=== PATIENT | female | born 1930 | race Caucasian/White ===

== ENCOUNTER 2019-11-03 00:52 | Inpatient (IN) | payer OTHER ==
[2019-11-03] MEDS ORDERED: NA CHLORIDE 0.9% 500 ML ONE (01:36)
[2019-11-03] MEDS ORDERED: ONDANSETRON 4 MG/2 ML VIAL ONE (01:36)
[2019-11-03] MEDS ORDERED: FENTANYL CITR 100 MCG/2 ML ONE (01:36)
--- NOTE | 2019-11-03 02:53 | ER ---
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 denies LOC. no deformity or hematoma noted. Coronavirus screen: The patient has NOT traveled to a country currently being monitored by the [facility] within the last 14 days. Proceed with normal triage procedures. The patient has NOT had contact with any known and/or suspected case of coronavirus. Proceed with normal triage procedures. Ebola Screen: No symptoms or risks identified at this time. Initial Sepsis Screen: Does the patient meet any 2 criteria? No. Patient's initial sepsis screen is negative. Does the patient have a suspected source of infection? No. Patient's initial sepsis screen is negative. Risk Assessment: Do you want to hurt yourself or someone else? Patient reports no desire to harm self or others. 01:04 Method Of Arrival: EMS: [facility] mg2 01:04 Acuity: ANT 3 mg2 Historical: - Allergies: 01:10 No Known Allergies; mg2 - Home Meds: 01:10 Eliquis oral oral [Active]; sertraline oral oral [Active]; carvedilol oral oral mg2 [Active]; amlodipine oral [Active]; atorvastatin oral oral [Active]; carvedilol oral oral [Active]; - PMHx: 01:10 CVA; Hypertension; Diverticulitis; uterine prolapse; DVT; mg2 - PSHx: 01:10 uterine prolapse surgery; mg2 - Immunization history:: Flu vaccine is not up to date. - Social history:: Smoking status: Patient denies any tobacco usage or history of. Patient/guardian denies using alcohol, street drugs, IV drugs. Screenin:09 Abuse screen: Denies threats or abuse. Denies injuries from another. Nutritional lw1 screening: No deficits noted. Tuberculosis screening: No symptoms or risk factors identified. Fall Risk IV access (20 points). Exposure risk/Travel Screening: None identified. Assessment: 02:05 Reassessment: Patient is alert, oriented x 3, equal unlabored respirations, skin lw1 warm/dry/pink. General: Appears in no apparent distress. comfortable, well groomed, well developed, well nourished, Behavior is calm, cooperative, appropriate for age. Pain: Denies pain. Neuro: No deficits noted. Cardiovascular: No deficits noted. Heart tones S1 S2 Capillary refill < 3 seconds in bilateral fingers toes. Respiratory: No deficits noted. Airway is patent Breath sounds are clear bilaterally. GI: Abdomen is round non-distended, Bowel sounds present X 4 quads. Abd is soft and non tender X 4 quads. : No deficits noted. EENT: No deficits noted. Derm: No deficits noted. Musculoskeletal: Parent/caregiver report the patient having weakness in right arm, left arm, right leg and left leg. 03:05 Reassessment: Patient appears in no apparent distress at this time. Patient and/or sg family updated on plan of care and expected duration. Pain level reassessed. Patient is alert, oriented x 3, equal unlabored respirations, skin warm/dry/pink. report given to Ashlie WILKINSON for room 214. Vital Signs: 01:04 BP 179 / 65; Pulse 66; Resp 20; Temp 97.6(TE); Pulse Ox 97% ; lt1 01:10 Weight 61.23 kg; Height 5 ft. 4 in. (162.56 cm); mg2 03:06 BP 142 / 60; Pulse 62; Resp 18; Temp 97.7; Pulse Ox 98% on R/A; sg 01:10 Body Mass Index 23.17 (61.23 kg, 162.56 cm) mg2 ED Course: 01:03 Patient arrived in ED. mg2 01:06 Yeimi Khan, [facility] is Primary Nurse. lw1 01:07 Triage completed. mg2 01:07 Arm band placed on. mg2 01:20 Josh Andrews MD is Attending Physician. tw4 02:03 No provider procedures requiring assistance completed. Inserted saline lock: 22 gauge lw1 in right antecubital area, using aseptic technique. 02:10 Placed in gown. Bed in low position. Call light in reach. Side rails up X2. Adult w/ lw1 patient. equipment monitor phototypesetting on. Pulse ox on. NIBP on. Noise minimized. Lights dimmed. Warm blanket given. Pillow given. Head of bed. Diet: Patient is NPO. 02:28 Pelvis XRAY In Process Unspecified. EDMS 02:44 Hip Left 2 View XRAY In Process Unspecified. EDMS 02:51 Bobby Adams MD is Hospitalizing Provider. tw4 03:05 Patient admitted, IV remains in place. intact, No redness/swelling at site. sg 03:24 Perkins cath inserted, using sterile technique, 18 Fr., by me, balloon inflated, urine mg2 specimen collected. returned clear yellow urine. Patient tolerated well. Administered Medications: 01:45 Drug: fentaNYL (PF) 25 mcg Route: IVP; Site: right antecubital; lw1 01:45 Drug: Zofran (Ondansetron) 4 mg Route: IVP; Site: right antecubital; lw1 01:45 Drug: NS 0.9% 500 ml Route: IV; Rate: bolus; Site: right antecubital; lw1 Outcome: 02:53 Decision to Hospitalize by Provider. tw4 03:05 Admitted to Med/surg accompanied by nurse, family with patient, via stretcher, room sg 214, with chart, Report called to [facility] Dailey 03:05 Condition: stable 03:05 Instructed on follow up and referral plans. safety practices, Demonstrated understanding of instructions, Ashlie WILKINSON states that no orders have been received for pt admit to the unit, awaiting admission orders from for at this time, to be transported to receiving unit once admission orders have been submitted to [facility], pt and pt family stated understanding of the delay 04:09 Patient left the ED. mg2 Signatures: Dispatcher [employer] EDMiguel Kidd, Josh French RN, MD MD tw4 Reji Aguirre RN RN mg2 Cristela Pollack 1 Yeimi Khan RN RN lw1
--- NOTE | 2019-11-03 02:53 | EDPHYS ---
Physician Documentation [facility] Name: Marcia Benavidez Age: 89 yrs Sex: Female : 1930 Arrival Date: 11/03/2019 Time: 01:03 Bed 16 Private MD: ED Physician Josh Andrews HPI: 11/02 03:28 This 89 yrs old Female presents to ER via EMS with complaints of HIP PAIN tw4 AFTER FALL. 03:28 The patient or guardian reports decreased range of motion, deformity, an injury. that tw4 occurred at home, sustained from a fall, the left leg is internally rotated. The complaints affect the left upper thigh. Onset: The symptoms/episode began/occurred today. Modifying factors: The symptoms are alleviated by remaining still, the symptoms are aggravated by any movement. Associated signs and symptoms: Loss of consciousness: the patient experienced no loss of consciousness. The patient has not experienced similar symptoms in the past. Historical: - Allergies: 01:10 No Known Allergies; mg2 - Home Meds: 01:10 Eliquis oral oral [Active]; sertraline oral oral [Active]; carvedilol oral oral mg2 [Active]; amlodipine oral [Active]; atorvastatin oral oral [Active]; carvedilol oral oral [Active]; - PMHx: 01:10 CVA; Hypertension; Diverticulitis; uterine prolapse; DVT; mg2 - PSHx: 01:10 uterine prolapse surgery; mg2 - Immunization history:: Flu vaccine is not up to date. - Social history:: Smoking status: Patient denies any tobacco usage or history of. Patient/guardian denies using alcohol, street drugs, IV drugs. ROS: 03:28 Constitutional: Negative for fever, chills, and weight loss, Eyes: Negative for injury, tw4 pain, redness, and discharge, Cardiovascular: Negative for chest pain, palpitations, and edema, Respiratory: Negative for shortness of breath, cough, wheezing, and pleuritic chest pain, Abdomen/GI: Negative for abdominal pain, nausea, vomiting, diarrhea, and constipation, Skin: Negative for injury, rash, and discoloration, Neuro: Negative for headache, weakness, numbness, tingling, and seizure. 03:28 MS/extremity: Positive for injury or acute deformity, decreased range of motion, pain, swelling, tenderness. Exam: 03:28 Constitutional: This is a well developed, well nourished patient who is awake, alert, tw4 and in no acute distress. Head/Face: Normocephalic, atraumatic. Chest/axilla: Normal chest wall appearance and motion. Nontender with no deformity. No lesions are appreciated. Cardiovascular: Regular rate and rhythm with a normal S1 and S2. No gallops, murmurs, or rubs. Normal PMI, no JVD. No pulse deficits. Respiratory: Lungs have equal breath sounds bilaterally, clear to auscultation and percussion. No rales, rhonchi or wheezes noted. No increased work of breathing, no retractions or nasal flaring. Abdomen/GI: Soft, non-tender, with normal bowel sounds. No distension or tympany. No guarding or rebound. No evidence of tenderness throughout. Skin: Warm, dry with normal turgor. Normal color with no rashes, no lesions, and no evidence of cellulitis. Neuro: Awake and alert, GCS 15, oriented to person, place, time, and situation. Cranial nerves II-XII grossly intact. Motor strength 5/5 in all extremities. Sensory grossly intact. Cerebellar exam normal. Normal gait. Psych: Awake, alert, with orientation to person, place and time. Behavior, mood, and affect are within normal limits. 03:28 Musculoskeletal/extremity: Extremities: noted in the left upper thigh: decreased ROM, ROM: limited active range of motion due to pain, limited passive range of motion due to pain, Circulation is intact in all extremities. Vital Signs: 01:04 BP 179 / 65; Pulse 66; Resp 20; Temp 97.6(TE); Pulse Ox 97% ; lt1 01:10 Weight 61.23 kg; Height 5 ft. 4 in. (162.56 cm); mg2 03:06 BP 142 / 60; Pulse 62; Resp 18; Temp 97.7; Pulse Ox 98% on R/A; sg 01:10 Body Mass Index 23.17 (61.23 kg, 162.56 cm) mg2 MDM: 01:20 Patient medically screened. tw4 03:28 Differential diagnosis: hip fracture, intertrochanteric fracture, femoral neck tw4 fracture, femoral shaft fracture. Data reviewed: vital signs, nurses notes. Data reviewed: lab test result(s), cardiac enzymes, CBC, hepatic panel, EKG, radiologic studies. Data interpreted: Pulse oximetry: Interpretation: normal. Test interpretation: by ED physician or midlevel provider: plain radiologic studies. Counseling: I had a detailed discussion with the patient and/or guardian regarding: the historical points, exam findings, and any diagnostic results supporting the discharge/admit diagnosis, lab results, radiology results. Physician consultation: Bobby Adams MD regarding admission, to the medical/surgical unit. patient's condition, and will see patient in inpatient room, would like consultation with Dr. CORRALES D/W DR PENDLETON AT 0230. Admission orders: after a detailed discussion of the patient's condition and case, the admit orders are written by me. 11/02 01:22 Order name: Basic Metabolic Panel [facility] 11/02 01:22 Order name: CBC with Diff [facility] 11/02 01:22 Order name: Creatinine for Radiology [facility] 11/02 01:22 Order name: Hepatic Function [facility] 11/02 01:22 Order name: Lipase [facility] 11/02 03:26 Order name: Basic Metabolic Panel [facility] 11/02 01:22 Order name: Pelvis XRAY [facility] 11/02 01:22 Order name: Hip Left 2 View XRAY [facility] 11/02 03:26 Order name: Basic Metabolic Panel [facility] 11/02 03:26 Order name: CBC with Automated Diff [facility] 11/02 03:26 Order name: CBC with Automated Diff [facility] 11/02 01:22 Order name: IV Saline Lock [facility] 11/02 01:22 Order name: Labs collected and sent [facility] 11/02 03:01 Order name: Perkins; Complete Time: 04:08 11/02 03:26 Order name: CONS Physician Consult [facility] 11/02 03:26 Order name: NPO EDSD Administered Medications: 01:45 Drug: fentaNYL (PF) 25 mcg Route: IVP; Site: right antecubital; lw1 01:45 Drug: Zofran (Ondansetron) 4 mg Route: IVP; Site: right antecubital; lw1 01:45 Drug: NS 0.9% 500 ml Route: IV; Rate: bolus; Site: right antecubital; lw1 Disposition: 11/03/19 02:53 Hospitalization ordered by Bobby Adams for Inpatient Admission. Preliminary diagnosis is Fracture of unspecified part of neck of left femur. - Bed requested for Telemetry/MedSurg (Inpatient). - Status is Inpatient Admission. mg2 - Condition is Stable. - Problem is new. - Symptoms have improved. Signatures: Dispatcher [employer] EDMS Miguel Green, RN RN sg Joanna Monsivais RN RN lp1 Josh Andrews MD MD tw4 Reji Aguirre RN RN mg2 Yeimi Khan RN RN lw1 Corrections: (The following items were deleted from the chart) 02:53 02:53 Hospitalization Ordered by Bobby Adams MD for Inpatient Admission. Preliminary lp1 diagnosis is Fracture of unspecified part of neck of left femur. Bed requested for Telemetry/MedSurg (Inpatient). Status is Inpatient Admission. Condition is Stable. Problem is new. Symptoms have improved. tw4 04:09 02:53 11/03/2019 02:53 Hospitalization Ordered by Bobby Adams MD for Inpatient mg2 Admission. Preliminary diagnosis is Fracture of unspecified part of neck of left femur. Bed requested for Telemetry/MedSurg (Inpatient). Status is Inpatient Admission. Condition is Stable. Problem is new. Symptoms have improved. lp1
[2019-11-03 03:01] LABS: Absolute Lymphocytes (CBC) 1.2 K/uL (0.7-4.9); Basophils % 0.1 % (0-1.3); Hematocrit 34.8 % (36.0-45.0); Lymphocytes % 9.8 % (15.3-44.8); MPV 9.7 fL (7.6-11.3); RBC Red Blood Cell Count 4.03 M/uL (3.86-4.86)
[2019-11-03 03:18] LABS: ALT/SGPT 22 U/L (12-78); AST/SGOT 20 U/L (15-37); Albumin 3.6 g/dL (3.4-5.0); Alkaline Phosphatase 59 U/L (45-117); BUN Blood Urea Nitrogen 23 mg/dL (7-18); Bicarbonate 29 mmol/L (21-32); Bilirubin Direct 0.1 mg/dL (0-0.2); Bilirubin Total 0.4 mg/dL (0.2-1.0); Glucose Level 154 mg/dL (74-106); Lipase 110 U/L (73-393); Protein, Total 7.1 g/dL (6.4-8.2); Sodium Level 141 mmol/L (136-145)
[2019-11-03] MEDS ORDERED: ONDANSETRON 4 MG/2 ML VIAL IV PRN (03:22)
[2019-11-03] MEDS ORDERED: ACETAMINOPHEN 500 MG TAB PO PRN (03:22)
[2019-11-03 04:21] VITALS: BMI 24.9
[2019-11-03] MEDS: NA CHLORIDE 0.9% 1,000 ML IV SCH (05:01)
[2019-11-03] MEDS: MORPHINE 2 MG/ML SYR IV PRN ×3 (05:15→22:41)
--- NOTE | 2019-11-03 08:03 | RAD REPORT ---
EXAM DESCRIPTION: RAD - Chest Single View - 11/03/2019 6:47 am CLINICAL HISTORY: preop, hip fracture COMPARISON: None TECHNIQUE: AP portable chest image was obtained 11/03/2019 6:47 am . FINDINGS: Lungs are clear. Heart and vasculature are normal. No measurable pleural effusion and no p neumothorax. No acute bony abnormality seen. No acute aortic findings suspected. IMPRESSION: No acute cardiopulmonary process.
[2019-11-03] MEDS ORDERED: AMLODIPINE BESYLATE PO SCH (09:00)
[2019-11-03] MEDS ORDERED: [UNRECOGNIZED DRUG - OTHER] PO SCH (09:00)
[2019-11-03] MEDS ORDERED: BENAZEPRIL PO SCH (09:00)
[2019-11-03] MEDS: SERTRALINE HCL 50 MG TAB PO SCH (09:32)
[2019-11-03] MEDS: carvediloL 6.25 MG TAB PO SCH ×2 (09:32→21:20)
--- NOTE | 2019-11-03 10:05 | RAD REPORT ---
EXAM DESCRIPTION: RAD - Pelvis - 11/03/2019 2:54 am CLINICAL HISTORY: TRAUMA, fall, pelvis and hip pain COMPARISON: Pelvis Complete dated 10/19/2016 TECHNIQUE: AP imaging of the pelvis was obtained. FINDINGS: Minimal lower lumbar degenerative change seen right lateral L4-disc space across the entir e L5-S1 disc space. Minimal SI joint and pubic symphysis degenerative changes seen. No fracture of th e bony pelvis identifiable. Left proximal femur fracture is separately detailed. Hip joint degenerati ve changes are present. This is a mild symmetric pattern. IMPRESSION: No fracture of the bony pelvis. Left femur fracture is separately detailed.
--- NOTE | 2019-11-03 10:06 | RAD REPORT ---
EXAM DESCRIPTION: RAD - Hip Left 2 View - 11/03/2019 2:54 am CLINICAL HISTORY: PAIN, fall, pelvis and hip pain COMPARISON: No comparisons FINDINGS: AP and cross-table lateral views obtained. Left femoral neck fracture is present in the subcapital region. Medial margin of the neck fracture is impacted into the femoral head. No dislocation of the femoral head. No pathologic changes seen at th e fracture site. Intertrochanteric region is intact. No significant soft tissue finding. IMPRESSION: Left femoral neck fracture as detailed.
[2019-11-03] MEDS ORDERED: ENOXAPARIN 30 MG/0.3 ML SQ ONE (12:00)
[2019-11-03] MEDS ORDERED: INFLUENZA VACCINE (for 3y+) 0.5 ML DOSE IMVAC ONE (12:00)
[2019-11-03] MEDS ORDERED: PNEUMOCOCCAL VACCINE 0.5 ML IMVAC ONE (12:00)
--- NOTE | 2019-11-03 20:14 | HP ---
Date of Admission: 11/03/2019 Chief Complaint: Fall and hip pain. History Of Present Illness: This is an 89-year-old female patient, who lives at home with her federico beckford, uses walker to ambulate, and last night somewhere close to midnight, she was trying to reach to he r walker, lost her balance and fell down and was not able to get up. Patient fell on her left hip ar ea. Denies any head injury. She was not able to get up, so family was contacted and patient's daugh lobito went over there, helped her to get up and brought her to emergency room. After she was evaluated in the ER, she was admitted to the hospital with femoral fracture of left femur. This morning when I saw her, she was lying in bed, not in any distress. Denied any complaints and reports that she srinivasan s not have any pain until unless she moves. Allergies: NO KNOWN ALLERGIES. Medications: Amlodipine/benazepril 5/20 one capsule by mouth daily, Eliquis 2.5 mg by mouth 2 times a day, atorvastatin 20 mg p.o. daily in the evening, and sertraline 25 mg p.o. daily with breakfast. Review of Systems: Musculoskeletal: As mentioned above. All other systems reviewed and negative. Past Medical History: Impaired fasting glucose, hypertension, mixed hyperlipidemia, diverticulosis, hypercoagulable state, and depression. Past Surgical History: Cataract surgery, breast biopsy, hernia repair, uterine prolapse repair. Family History: Father and had a heart disease. Mother , had hypertension and diabetes. Social History: Negative for smoking and alcohol use. Physical Examination: Vital Signs: This morning; temperature 97, pulse 79, respiratory rate 20, blood pressure 186/72, oxy gen saturation 93%. Height 5 feet 4 inches, weight 145 pounds. General: Awake, alert, oriented, not in distress. HEENT: Head atraumatic, normocephalic. Conjunctivae nonerythematous. Sclerae white. Mouth, no thr ush or edema noted. Ears/Nose, no mass, lesion, discharge noted. Neck: Supple. No JVD, lymph nodes, bruit, thyromegaly noted. Lungs: Bilateral good equal air entry. Clear to auscultation. No rhonchi. No rales. Heart: Normal heart sounds, no murmur or gallop. Abdomen: Soft, bowel sounds normal. No guarding, rigidity, tenderness, mass, hepatosplenomegaly, dis tention, or bruit noted. Extremities: No leg edema. No calf tenderness. Skin: No rash, ulcer, cellulitis. Lymphatics: No lymph node enlargement in neck, supraclavicular, infraclavicular region. Neuro: No focal neurological deficit. Chest: Unremarkable. External Genitalia: Deferred. Rectal: Deferred. Laboratory Data: White count 12, hemoglobin 11.2, platelets 173. Sodium 141, potassium 4, chloride 108, bicarb 29, BUN 23, creatinine 0.61, glucose 154. Liver function tests unremarkable. Lipase 110 . X-ray of the hip and pelvis shows left femoral neck fracture. Chest x-ray, no acute cardiopulmonary changes. EKG, normal sinus rhythm, no acute ST-T changes. Impression: 1.Femoral neck fracture, left. 2.Hypercoagulable state. 3.Chronic anticoagulation therapy. 4.Hypertension. 5.Mixed hyperlipidemia. 6.Impaired fasting glucose. 7.Anemia, chronic. 8.Depression. 9.Diverticulosis. Plan: Admit the patient to hospital for further evaluation and management of this problem. Patient is appropriate for inpatient and is expected to spend 2 midnights in hospital. Home medications will be continued per order. Patient has SCD in place for DVT prophylaxis. Her last dose of Eliquis armida t she takes for her hypercoagulable state was yesterday evening. I did talk to Dr. Garcia and bianca lobo him aware of the patient's chronic anticoagulation therapy. He would like to proceed with surgery today or tomorrow and I informed him about the anticoagulation therapy and we would like to wait at [facility] until tomorrow for sure or day after tomorrow, and after my discussion with him, he would like t o proceed with surgery probably tomorrow afternoon and we will try to do that as late in the afternoo n as possible. So, by that time, the patient would be close to 36 to 48 hours from the last dose of her Eliquis dose. She normally takes her evening dose of Eliquis around 5 o'clock in the evening walker e according to patient's daughter. Patient is at acceptable risk from planned surgery, and today, I will give her 1 dose of Lovenox 30 mg subcutaneous injection. RENÉE/MODL Voice ID: [id number]
[2019-11-03] MEDS: ATORVASTATIN 20 MG TAB PO SCH (21:20)
--- NOTE | 2019-11-03 22:38 | CON ---
Date of Consultation: 11/03/2019 History Of Present Illness: This is my first time seeing this patient to my knowledge. She is an 89 -year-old female who was ambulatory with a walker. However, she does have some limitations in her mo bility. She unfortunately took a misstep and fell injuring her left lower extremity. She was seen a nd examined in the emergency department where she was ruled out for other injuries, however, x-rays w ere taken, which demonstrate a displaced femoral neck fracture on the left. On physical examination, she is interactive and appropriate. She appears to understand things as presented and answers quest ions appropriately. She denies any other pain, but complains of significant pain related to her left hip. All of her long bones and joints are palpated without pain or crepitation with the exception o f any movement or manipulation of the left hip. Assessment: An 89-year-old female now with a displaced left femoral neck fracture. Plan: Plan at this time, will see with Dr. Adams regarding clearance or other medical conditions or c onsiderations, but will probably after speaking with the family later when they are available, procee d with left bipolar hemiarthroplasty. The patient at least states that she understands things as pre sented and like to proceed, although we will also speak with Dr. Adams and the family. /BIANKA Voice ID: [id number] Report ID: [id number]
[2019-11-04] MEDS: NA CHLORIDE 0.9% 1,000 ML IV SCH ×2 (03:37)
[2019-11-04] MEDS: MORPHINE 2 MG/ML SYR IV PRN (04:47)
[2019-11-04 05:53] LABS: Absolute Lymphocytes (CBC) 1.3 K/uL (0.7-4.9); Basophils % 0.4 % (0-1.3); Hematocrit 28.2 % (36.0-45.0); Lymphocytes % 18.8 % (15.3-44.8); RBC Red Blood Cell Count 3.23 M/uL (3.86-4.86)
[2019-11-04 06:37] LABS: BUN Blood Urea Nitrogen 17 mg/dL (7-18); Bicarbonate 29 mmol/L (21-32); Glucose Level 113 mg/dL (74-106); Potassium 4.2 mmol/L (3.5-5.1); Sodium Level 141 mmol/L (136-145)
[2019-11-04] MEDS: carvediloL 6.25 MG TAB PO SCH ×2 (10:17→20:18)
[2019-11-04] MEDS: SERTRALINE HCL 50 MG TAB PO SCH (10:18)
[2019-11-04] MEDS: BENAZEPRIL 20 MG TAB PO SCH (10:19)
[2019-11-04] MEDS: AMLODIPINE 5 MG TAB PO SCH (10:20)
[2019-11-04] MEDS ORDERED: Ringers Lactate 1,000 ML IV ONE (12:43)
[2019-11-04] MEDS ORDERED: CEFAZOLIN SODIUM 1 GM/VIAL ONE (13:10)
[2019-11-04] MEDS: CEFAZOLIN/SWI 1gm 0 GM/0 ML SYR ONE (13:19)
[2019-11-04] MEDS ORDERED: TRANEXAMIC ACID 1,000 MG in NA CHLORIDE 0.9% 50 ML IV ONE (14:00)
[2019-11-04] MEDS ORDERED: ENOXAPARIN 30 MG/0.3 ML SQ ONE (15:00)
--- NOTE | 2019-11-04 17:41 | PN ---
Date of Progress Note: 11/04/2019 Subjective: Patient was seen this morning for followup. No new complaints or problems reported by bahman taylor. Lying in bed, not in distress. Objective: Vital Signs: Reviewed. HEENT: Unremarkable. Lungs: Clear to auscultation. Heart: Sounds normal. Abdomen: Soft. Bowel sounds normal. No guarding, rigidity, tenderness, distention. Extremities: No leg edema. Impression: 1.Left femoral neck fracture. 2.Chronic anticoagulation therapy. 3.Hypertension. 4.Hyperlipidemia. Plan: Continue current medications. Continue home medications per order. We will change IV fluid t o D5 normal saline. Patient is n.p.o. for her surgery today. Dr. Garcia will perform her surgery today. We will repeat blood work tomorrow. I will see her tomorrow for followup. RENÉE/MODL Voice ID: [id number] Report ID: [id number]
[2019-11-04] MEDS: D5 0.9 NS 1,000 ML IV SCH (20:17)
[2019-11-04] MEDS: ATORVASTATIN 20 MG TAB PO SCH (20:18)
[2019-11-05] MEDS: MORPHINE 2 MG/ML SYR IV PRN ×3 (01:59→12:52)
[2019-11-05] MEDS: D5 0.9 NS 1,000 ML IV SCH ×2 (05:04→10:00)
[2019-11-05 05:28] LABS: Absolute Lymphocytes (CBC) 1.2 K/uL (0.7-4.9); Basophils % 0.2 % (0-1.3); Hematocrit 24.8 % (36.0-45.0); MPV 9.4 fL (7.6-11.3); RBC Red Blood Cell Count 2.83 M/uL (3.86-4.86)
[2019-11-05 05:41] LABS: BUN Blood Urea Nitrogen 18 mg/dL (7-18); Bicarbonate 29 mmol/L (21-32); Glucose Level 149 mg/dL (74-106); Magnesium 1.9 mg/dL (1.8-2.4); Potassium 3.8 mmol/L (3.5-5.1); Sodium Level 141 mmol/L (136-145)
[2019-11-05] MEDS: SERTRALINE HCL 50 MG TAB PO SCH (08:17)
[2019-11-05] MEDS: AMLODIPINE 5 MG TAB PO SCH (08:18)
[2019-11-05] MEDS: BENAZEPRIL 20 MG TAB PO SCH (08:18)
[2019-11-05] MEDS: carvediloL 6.25 MG TAB PO SCH ×2 (08:19→21:11)
[2019-11-05] MEDS: HYDROCODONE/APAP 5/325 MG TAB PO SCH ×2 (13:20→21:10)
[2019-11-05] MEDS ORDERED: CEFAZOLIN/SWI 1gm 1 GM/10 ML SYR ONE (15:25)
[2019-11-05] MEDS ORDERED: CEFAZOLIN SODIUM 1 GM/VIAL ONE (15:26)
[2019-11-05] MEDS ORDERED: propofoL 200 MG/20 ML VIAL IV ONE (16:03)
[2019-11-05] MEDS ORDERED: ROCURONIUM 50 MG/5 ML VIAL IV ONE (16:03)
[2019-11-05] MEDS ORDERED: LIDOCAINE 2% MPF 5 ML VIAL ONE (16:05)
[2019-11-05] MEDS ORDERED: Phenylephrine HCl 10 MG/ML 1 ML VIAL ONE (16:06)
[2019-11-05] MEDS: CEFAZOLIN/SWI 1gm 0 GM/0 ML SYR ONE (16:40)
[2019-11-05] MEDS ORDERED: FENTANYL CITR 100 MCG/2 ML ONE (16:57)
[2019-11-05] MEDS ORDERED: ONDANSETRON 4 MG/2 ML VIAL ONE (17:05)
[2019-11-05] MEDS ORDERED: KETOROLAC 30 MG/ML INJ ONE (17:05)
[2019-11-05] MEDS ORDERED: dexAMETHasone 10 MG/ML VIAL ONE (17:05)
[2019-11-05] MEDS ORDERED: GLYCOPYRROLATE 0.2 MG/ML SYR ONE ×3 (17:26→18:19)
[2019-11-05] MEDS ORDERED: NEOSTIGMINE 1 MG/ML -5 ML ONE (18:19)
--- NOTE | 2019-11-05 20:04 | PN ---
Date of Progress Note: 11/05/2019 Subjective: Patient was seen this morning for followup. No new complaints problems reported by gilles ent. Physical Examination: General: Lying in bed, not in distress. Vital Signs: Reviewed. HEENT: Unremarkable. Lungs: Clear to auscultation. Cardiac: Heart sounds normal. Abdomen: Soft, bowel sounds normal. No guarding, rigidity, tenderness, distention. Extremities: No leg edema. Laboratory Data: White count 9.3, hemoglobin 8.2, platelets 101. Sodium 141, potassium 3.8, chlorid e 109, bicarb 29, BUN 18, creatinine 0.53, glucose 149, magnesium 1.9. Impression: 1.Acute blood loss anemia. 2.Thrombocytopenia. 3.Hip fracture. 4.Chronic anticoagulation therapy. 5.Hypercoagulable state. 6.Hypertension. Plan: We will go ahead and continue current home medication. We will start Eliquis at 2.5 mg 2 time s a day per order. Monitor blood work. No need for blood transfusion today. We will repeat blood w ork tomorrow. Details were discussed with the patient. Reduced IV fluid to 30 cc/hour. RENÉE/MODL Voice ID: [id number] Report ID: [id number]
[2019-11-05] MEDS ORDERED: APIXABAN 2.5 MG TABLET PO SCH (21:00)
[2019-11-05] MEDS: DOCUSATE NA/SENNA CONC 1 TAB PO SCH (21:10)
[2019-11-05] MEDS: ATORVASTATIN 20 MG TAB PO SCH (21:10)
--- NOTE | 2019-11-05 21:52 | OP ---
Date of Procedure: 11/05/2019 Surgeon: Miguel Garcia MD Preoperative Diagnosis: Left hip displaced femoral neck fracture. Postoperative Diagnosis: Left hip displaced femoral neck fracture. Procedure: Left hip bipolar hemiarthroplasty using the Biomet Echo system. Estimated Blood Loss: 200 cc. Complications: No complications. Indication For Operation: Ms. Benavidez is an 89-year-old female who unfortunately fell injuring her l eft lower extremity. She was seen and examined in the emergency department where she was ruled out f or other injuries, however, x-rays demonstrated displaced left femoral neck fracture. She was seen b y me on Tuesday and consultation has been done. She was found to have a left femoral neck fracture. Denied any other injuries. All risks, benefits, and alternatives have been discussed with the gilles ent as well has been discussed with family with regard to treatment of this fracture. They state the y understand things as presented and wished to proceed. Description Of Procedure: The patient was taken to the operating room and placed in supine position. General anesthesia was obtained by staff. Following this, she was then transferred onto the operat jose bed. She was then rolled right side down with an axillary roll. She was then appropriately posi tioned using hip positioners and left lower extremity was then prepped and draped in the usual steril e fashion for this arthroplasty. Following this, a posterior lateral incision was taken down careful ly through skin and soft tissues. Meticulous hemostasis being maintained using Bovie electrocautery. There was a fairly large hematoma which was evacuated. There was still some fat attached to the fa scia. I do not really think this was a seroma more manufacturers representative of hematoma. This was followed by an incision which was made in the fascia. The gluteal tendon was then palpated. Fascial incision f ound to be in correct position. This was then followed up until near the tip of the greater trochant er with the muscles of the gluteus jaquan were encountered. These were then spread using finger pre ssure. The sciatic nerve was then palpated and protected as the some of the bursa was removed and th e external rotators and capsule were then taken down and tagged for later repair. The hip was then b rought into the operative field. The neck was then cut slightly longer than normal, but there was ve ry good calcar placed. The piece of the neck then removed. The head was then removed and sized usin g ring gauges. Following this, any debris within the acetabulum was removed. Attention was turned b ack to the femur. arc cutter plasma arc was used to lateralize the entry portal and the canal-finding reamer quin cosby then used. This was followed by sequential reaming as well as broaching. We were able to broach u p to about 12-1/2, therefore decision made to move forward with 11. The canal was then copiously irr igated until it runs completely clear. The bone plug was placed to appropriate depth and the stem wa s placed using third generation cementation technique. It was held in place and allowed to harden. It was then sequentially trialed including a standard -3 and -6, -6 appeared to be the most appropria te. It was definitely stable to full flexion, 45 degrees of internal rotation and adduction. This w as selected as the final and the -6 was then placed into the acetabulum. It was again checked and fo und to be stable with full flexion, full adduction, internal rotation approximately 30-45 degrees. T he wound was copiously irrigated and the external rotators and capsule were then repaired back to the greater trochanter using bone tunnel. This was followed by irrigation and closure of the fascia in a watertight fashion using interrupted heavy Vicryl sutures, followed by irrigation and closure of th e skin using 2-0 Vicryl sutures, followed by nickolas. [facility] awakened, and taken to recovery room in good condition. There were no complications. SE/MODL Voice ID: [id number] Report ID: [id number]
[2019-11-05] MEDS: CEFAZOLIN/SWI 1gm 1 GM/10 ML SYR IV SCH (22:01)
[2019-11-06 05:55] LABS: Potassium 4.8 mmol/L (3.5-5.1)
[2019-11-06 06:03] LABS: Absolute Lymphocytes (CBC) 0.6 K/uL (0.7-4.9); Basophils % 0.1 % (0-1.3); Hematocrit 22.5 % (36.0-45.0); Lymphocytes % 6.8 % (15.3-44.8); MPV 9.7 fL (7.6-11.3); RBC Red Blood Cell Count 2.56 M/uL (3.86-4.86)
[2019-11-06] MEDS: CEFAZOLIN/SWI 1gm 1 GM/10 ML SYR IV SCH ×2 (06:08→18:27)
[2019-11-06 07:40] LABS: Blood Morphology Comment NOT SEEN (NOT SEEN); Platelet Estimate ADEQ
[2019-11-06] MEDS: HYDROCODONE/APAP 5/325 MG TAB PO SCH ×3 (09:07→22:03)
[2019-11-06] MEDS: APIXABAN 2.5 MG TABLET PO SCH ×2 (09:07→22:01)
[2019-11-06] MEDS: AMLODIPINE 5 MG TAB PO SCH (09:07)
[2019-11-06] MEDS: carvediloL 6.25 MG TAB PO SCH ×2 (09:07→22:02)
[2019-11-06] MEDS: SERTRALINE HCL 50 MG TAB PO SCH (09:07)
[2019-11-06] MEDS: BENAZEPRIL 20 MG TAB PO SCH (09:07)
[2019-11-06] MEDS ORDERED: NA CHLORIDE 0.9% 250 ML ONE ×2 (10:19→14:02)
--- NOTE | 2019-11-06 10:31 | EKG ---
Test Date: 2019-11-03 Test Time: 06:20:01 Telephone Services Sales Representative: RT MEASUREMENT RESULTS: Intervals: Rate: 73 WV: 144 QRSD: 72 QT: 408 QTc: 449 [place]: P: 48 WV: 144 QRS: -5 T: -8 INTERPRETIVE STATEMENTS: Normal sinus rhythm Possible Left atrial enlargement Nonspecific ST and T wave abnormality Abnormal ECG Compared to ECG 09/19/2006 17:17:40 Left-axis deviation no longer present ST (T wave) deviation still present Electronically Signed On 11-06-19 10:29:20 CDT by Burak Clayton
[2019-11-06] MEDS: D5 0.9 NS 1,000 ML IV SCH (19:09)
[2019-11-06] MEDS: MORPHINE 2 MG/ML SYR IV PRN (19:21)
[2019-11-06 20:41] LABS: Hematocrit 27.3 % (36.0-45.0)
[2019-11-06] MEDS: DOCUSATE NA/SENNA CONC 1 TAB PO SCH ×2 (21:00→22:02)
--- NOTE | 2019-11-06 21:14 | PN ---
Date of Progress Note: 11/06/2019 Subjective: Patient was seen this morning for followup. No new complaints problems reported by the patient. Her was present with her at bedside. Objective: Vital Signs: Reviewed. HEENT: Unremarkable. Lungs: Clear to auscultation. Cardiac: Heart sounds normal. Abdomen: Soft, bowel sounds normal. No guarding, rigidity, tenderness, or distention. Extremities: No leg edema. Laboratory Data: White count 48.5, hemoglobin 7.4, platelets 122. Sodium 142, potassium 4.8, chlori de 109, bicarb 28, BUN 24, creatinine 0.76, glucose 178. Impression: 1.Hip fracture. 2.Anemia due to acute blood loss. 3.Hypertension. 4.Mixed hyperlipidemia. Plan: We will go ahead and give 2 units of packed red cell blood transfusion. Start Eliquis 2.5 mg twice a day for DVT prophylaxis and in view of patient's hypercoagulable state. She is on chronic an ticoagulation therapy, so it will be started today. After 2 units PRBC will get post transfusion hem oglobin checked and I will see her tomorrow for followup. We are waiting for social service to help make arrangements for disposition. Rehab consultation was requested. If the patient gets accepted to rehab, then our plan is to send her to inpatient rehab and that can happ en probably tomorrow. RENÉE/MODL Voice ID: [id number] Report ID: [id number]
[2019-11-06] MEDS: ATORVASTATIN 20 MG TAB PO SCH (22:02)
[2019-11-07] MEDS ORDERED: MAGNESIUM HYDROXIDE 8% 30 ML PO PRN (05:26)
[2019-11-07] MEDS: AMLODIPINE 5 MG TAB PO SCH (09:35)
[2019-11-07] MEDS: APIXABAN 2.5 MG TABLET PO SCH ×2 (09:36→20:35)
[2019-11-07] MEDS: carvediloL 6.25 MG TAB PO SCH ×2 (09:36→20:35)
[2019-11-07] MEDS: BENAZEPRIL 20 MG TAB PO SCH (09:36)
[2019-11-07] MEDS: SERTRALINE HCL 50 MG TAB PO SCH (09:36)
[2019-11-07] MEDS: HYDROCODONE/APAP 5/325 MG TAB PO SCH ×3 (09:36→20:34)
[2019-11-07] MEDS: DOCUSATE NA/SENNA CONC 1 TAB PO SCH (20:35)
[2019-11-07] MEDS: ATORVASTATIN 20 MG TAB PO SCH (20:35)
[2019-11-07 21:00] VITALS: O2SAT 95
--- NOTE | 2019-11-07 21:18 | PN ---
Date of Progress Note: 11/07/2019 Subjective: Patient was seen this morning for followup. She was lying in bed, not in distress. sterilisation technician, nurse contacted and informed me before I saw her this morning that the patient had approximately 350 cc of urine as per bladder scan as she had not voided overnight after Perkins catheter was removed yesterday evening. Objective: Vital signs: Reviewed. HEENT: Unremarkable. Lungs: Clear to auscultation. Cardiac: Heart sounds normal. Abdomen: Soft, bowel sounds normal. No guarding, rigidity, tenderness, or distention. Extremities: No leg edema. Laboratory Data: Reviewed. Impression: 1. Hip fracture, status post surgery. 2. Acute blood loss anemia. 3. Urinary retention. 4. Hypertension. 5. Chronic anticoagulation therapy. Plan: We will continue Eliquis 2.5 mg twice a day. Continue antihypertensive medication per order. Pain medication per order. Nurse was advised to get the patient on bedside commode with assistance and this morning around close to 11 o 'clock nurse called and informed me that the patient still had not voided and in her bladder she noted about 250 cc of urine as per bladder scan, which is less compared to early this morning and patient had not voided in between. In any case, I informed nurse to go ahead and have the patient get on the bedside commode in 2-3 hours and if she is not able to void, then do bladder scan and to notify me and we will consider Perkins catheter placement if it is necessary at that time. Rehab notified me that they will accept the patient tomorrow to the rehab floor. I will see her in the morning. RENÉE/BIANKA Voice ID: [id number] Report ID: [id number] EPI
[2019-11-08] MEDS: carvediloL 6.25 MG TAB PO SCH (08:59)
[2019-11-08] MEDS: SERTRALINE HCL 50 MG TAB PO SCH (08:59)
[2019-11-08] MEDS: APIXABAN 2.5 MG TABLET PO SCH (08:59)
[2019-11-08] MEDS: BENAZEPRIL 20 MG TAB PO SCH (09:00)
[2019-11-08] MEDS: AMLODIPINE 5 MG TAB PO SCH (09:01)
[2019-11-08] MEDS: HYDROCODONE/APAP 5/325 MG TAB PO SCH (09:01)
[2019-11-08 12:46] VITALS: BP 123/58; TEMP 98
--- NOTE | 2019-11-08 20:31 | DS ---
Date of Discharge: 11/08/2019 Disposition: Discharged to go to inpatient rehab. Physical Examination: HEENT: Unremarkable. Lungs: Clear to auscultation. Heart: Sounds normal. Abdomen: Soft. Bowel sounds normal. No guarding, rigidity, tenderness, or distention. Extremities: No leg edema. Laboratory Data: When she first came into the hospital, white count 12.0, hemoglobin 11.2, platelets 173. Lowest hemoglobin 7.4, which was day before yesterday, and after 2 units of PRBC blood transfusion, hemoglobin came up to 8.9. Initial chemistry; sodium 141, potassium 4, chloride 108, bicarb 29, BUN 23, creatinine 0.61, glucose 154. Liver function tests unremarkable. Discharge Medications And Instructions: See copy of discharge order and medication list for details. Hospital Course: This is an 89-year-old pleasant female patient, who was admitted to the hospital after she fell down at home complaining of hip pain. Please see dictated H and P for more information. Patient was evaluated in the emergency room, was diagnosed as having femoral neck fracture involving her left hip, and orthopedic surgeon was consulted. Patient had surgery done and postoperatively, she did very well. She is on chronic anticoagulation therapy using Eliquis and day after surgery, anticoagulation therapy was started. She has tolerated that very well. Patient did receive some blood transfusion for acute anemia. Physical Therapy was consulted. Rehab was consulted. Today, patient was discharged to go to rehab in a stable condition, where I will continue to follow up. Final Diagnoses: 1. Left femoral neck fracture. 2. Hypercoagulable state. 3. Anemia due to acute blood loss. 4. Chronic anticoagulation therapy. 5. Hypertension. 6. Mixed hyperlipidemia. 7. Impaired fasting glucose. 8. Depression. 9. Diverticulosis. RENÉE/MODL Voice ID: [id number] Report ID: [id number] EPI
== END 2019-11-08 13:19 | DRG 470 ==
LOC: ER 00:52 → ERHOLD 03:21 → 2ND 03:50
PROVIDERS: ADMIT Internal Medicine; ATTEND Internal Medicine
PROC: 0SRS0J9 Replacement of Left Hip Joint, Femoral Surface with Synthetic Substitute, Cemented, Open Approach (ICD-10-PCS; principal; 2019-11-05 16:00)
PROC: 30233N1 Transfusion of Nonautologous Red Blood Cells into Peripheral Vein, Percutaneous Approach (ICD-10-PCS; 2019-11-06)
DX: S72.012A Unspecified intracapsular fracture of left femur, initial encounter for closed fracture (principal); D68.59 Other primary thrombophilia; D62 Acute posthemorrhagic anemia; I10 Essential (primary) hypertension; E78.2 Mixed hyperlipidemia; K57.90 Diverticulosis of intestine, part unspecified, without perforation or abscess without bleeding; F32.9 Major depressive disorder, single episode, unspecified; W06.XXXA Fall from bed, initial encounter; Y92.003 Bedroom of unspecified non-institutional (private) residence as the place of occurrence of the external cause; Z79.01 Long term (current) use of anticoagulants
CPT/HCPCS: 36415; 51702; 71045; 72170; 80048; 80076; 83690; 83735; 85014; 85018; 85025; 86850; 86900; 86901; 88305; 88311; 93005; 96374; 96375; 97112; 97116; 97161; 97530; 99285; J0690; J1100; J1650; J2270; J2370; J2405; J2704; J2710; J3010; J7030; J7040; J7042; J7120; P9016

== ENCOUNTER 2019-11-08 08:38 | Inpatient (IN) | payer OTHER ==
--- NOTE | 2019-11-08 10:08 | R.PREADM ---
SCREENING DATE AND TIME 11/08/2019 08:45 (CDT) ANTICIPATED REHAB ADMISSION DATE 11/10/2019 REFERRING FACILITY [facility] REFERRAL DATE AND TIME 11/08/2019 08:46 (CDT) REFERRAL ROOM# 214 ACUTE ADMIT DATE 11/03/2019 Previous Rehabilitation(s): No. ACUTE SYSTEM MANAGER/DC RADIOLOGIST Christina ATTENDING PHYSICIAN Bobby Adams REFERRING PHYSICIAN [facility] PRIMARY CARE PHYSICIAN [facility] CLINICAL LIAISON Denise Self PHYSICIAN REVIEWER Dr. Rob Anguiano M.D. MR# [id number] [id number] NAME RITA BENAVIDEZ AD[address]ESS [address] [place] [place] [address] DATE OF 1930 AGE 89 SSN# [id number] GENDER female MARITAL STATUS RACE white ADMIT FROM 02 - [facility] PRE-HOSPITAL LIVING SETTING 01 - Home (private home/apt. board/care, assisted living, retirement, transitional living) HOME TYPE AND DETAILS Type of home: single family house # of levels in the residence: 1 # of steps within the residence: 2 # of steps to enter the residence: 2 PRE-HOSPITAL LIVING WITH Family/Relatives FAMILY SUPPORT Yes PRIMARY FAMILY CONTACT NAME MOIRA BENAVIDEZ PRIMARY FAMILY CONTACT PHONE PHONE PRIMARY FAMILY CONTACT ON ADM.? no IS PRIMARY FAMILY CONTACT AUTH. REP.? no 1ST EMERGENCY CONTACT MOIRA BENAVIDEZ 1ST CONTACT PHONE PHONE 1ST CONTACT ON ADM. no IS 1ST CONTACT AUTH. REP.? no PHONE 2ND CONTACT ON ADM.? no PATIENT EMPLOYMENT STATUS Retired (for age) PATIENT EMPLOYER No Employer PAYOR INFORMATION: 1ST PAYOR NAME MEDICARE 1ST PAYOR PHONE 1ST PAYOR INJURY/ILLNESS DUE TO ACCIDENT? No ANOTHER GREEN PARTY RESPONSIBLE? No PRIMARY REHAB/ACUTE DIAGNOSIS: BIPOLAR ARTHOPLASTY ONSET DATE 11/08/2019 REHAB IMPAIRMENT CATEGORY (GERSON): 07 Fracture of LE (FracLE) MEETS 60% rule AFFECTED EXTREMITIES: LLE PRIMARY DIAGNOSIS-RELATED SURGERIES: Emergency Unilateral Hip Fracture - performed by POLI on 11/08/2019 SUMMARY OF ACUTE HOSPITALIZATION: Pt. is a 89 yo Right-handed white female. On 11/08/2019 she was admitted to [facility] and underwent emergency surgery for BIPOLAR ARTHOPLASTY (Unilateral Hip Fracture) by [facility]. Pre-morbidly, Pt. was independent/mod-I in Safety Awareness, Balance, Social Cognition, Endurance, Co mmunication, and Self-Care; and she had good Locomotion, Safety Awareness, Balance, Social Cognition, Transfers Control, Endurance, and Self-Care. Currently, she has deficits of Endurance, Communication, Self-Care, Sphincter Control, Transfers Cont rol, and Social Cognition. Pt. is now referred to [facility] for acute in-patient rehabilitation in order to maximize patient's functional independence in activities of daily living, strength, ROM, and mobi lity. Patient has realistic goal of being discharged at assistance level 2-maxA to reside at Home with Fam sri/Relatives. Rita Benavidez is a 89 year old women that lives in a single story home with her and uses a walker to ambulate independently. Last week she was at home and somewhere close to midnight, was trying to reach her walker while losing her balance and falling down and was not able to get up. Patient fell on her le hip area. Denies any head injury but was not able to get up. Family was contacted and patients daughter went over to the house to help bring her up to the emergency room. After she was evaluated in the ER she was admitted at [facility] and is hemodynamically stable with relatively stable labs. He is now medically stable but in need of 24 hour nursing, doctor supervision and oversight while receiving active and ongoing participate in 3 hours of therapy a day/15 hours per week and receive care with intensive interdisciplinary approach. PAST MEDICAL HISTORY IMPAIRED FASTING GLUCOSE HYPERTENSION MIXED HYPERLIPIDEMIA DIVERTICULOSIS HYPERCOAGULABLE STATE DEPRESSION PAST SURGICAL HISTORY: CATARACT SURGERY BREAST BIOPSY HERNIA REPAIR UTERINE PROLAPSE REPAIR MEDICATION ALLERGIES: No Known Drug Allergies (NKDA) ENVIRONMENTAL ALLERGIES: - Substance Allergies None Known - Other Allergies None Known CODE STATUS: Full code WEIGHT/HEIGHT/BMI: WEIGHT 145 lbs HEIGHT 5' 4" BMI 24.9 DIET: - Diet Type Regular - Diet - Solid Texture Regular - Diet - Liquid Texture Regular - Tube Feed N/A SKIN DIAGRAM: Incision on Abdomen; extent - small; stage - NS(Not Stageable). Treatment - Per Physician's Orders. REVIEW OF SYSTEMS: - Gen Alert and awake Lying in bed No apparent distress Oriented to: person, time, and place - Vital Signs Temperature: 97 F SBP/DBP: 186/72 Pulse: 79 Resp: 20 Vital signs stable, afebrile - CVS RRR VITAL SIGNS Temperature: 97 F SBP/DBP: 186/72 Pulse: 79 Resp: 20 Vital signs stable, afebrile MEDICATIONS/TREATMENT: Other- See attached MAR (Medication Administration Record). CURRENT SPHINCTER CONTROL: Pre-hospital bladder status: continent # of bladder accidents in the last 7 days prior to screenin Pre-hospital bowel status: continent # of bowel accidents in the last 7 days prior to screenin Last Bowel Movement Date: 11/08/2019 CURRENT LOCOMOTION STATUS: distance walked 8 feet DETAILED CURRENT FUNCTIONAL STATUS: - Bladder accident frequency: Ind - No accidents in the past 7 days - Bowel accident frequency: Ind - No accidents in the past 7 days - Walking score based on distance walked: 0(N/A) score based on distance walked: 1(<=50ft) - Wheelchair score based on distance traveled: 0(N/A) QI SCORES: - Self-Care A. Eating 06-Independent B. Oral hygiene 03-Partial/moderate assistance C. Toileting hygiene 02-Substantial/maximal assistance E. Shower/bathe self 02-Substantial/maximal assistance F. Upper body dressing 03-Partial/moderate assistance G. Lower body dressing 88-Not attempted due to medical condition or safety concerns H. Putting on/taking off footwear 88-Not attempted due to medical condition or safety concerns - Mobility B. Sit to lying 02-Substantial/maximal assistance C. Lying to sitting on side of bed 02-Substantial/maximal assistance D. Sit to stand 02-Substantial/maximal assistance E. Chair/xad-np-eraxa transfer 02-Substantial/maximal assistance F. Toilet transfer 02-Substantial/maximal assistance G. Car transfer 88-Not attempted due to medical condition or safety concerns I. Walk 10 feet 02-Substantial/maximal assistance J. Walk 50 feet with two turns 88-Not attempted due to medical condition or safety concerns K. Walk 150 feet 88-Not attempted due to medical condition or safety concerns L. Walking 10 feet on uneven surfaces 88-Not attempted due to medical condition or safety concerns M. 1 step (curb) 88-Not attempted due to medical condition or safety concerns N. 4 steps 88-Not attempted due to medical condition or safety concerns O. 12 steps 88-Not attempted due to medical condition or safety concerns P. Picking up object 06-Independent R. Wheel 50 feet with two turns 88-Not attempted due to medical condition or safety concerns S. Wheel 150 feet 88-Not attempted due to medical condition or safety concerns - Bladder and Bowel Bladder continence 0-Always continent Bowel continence 0-Always continent - Endurance Fair - Balance Fair - Safety Awareness Fair CURRENT FUNC. DEFICITS: Mobility, Endurance, Balance, Safety Awareness, and Self-Care CURRENT / PREVIOUS ASSISTIVE DEVICES: 3-in-1 Commode [employer] Hospital Bed Rolling Walker Shower Chair HISTORY OF FALLS. HAS THE PATIENT HAD TWO OR MORE FALLS IN THE PAST YEAR OR ANY FALL WITH INJURY IN T HE PAST YEAR?: No PRIOR SURGERY. DID THE PATIENT HAVE MAJOR SURGERY DURING THE 100 DAYS PRIOR TO ADMISSION?: No THERAPY NOTES FROM ACUTE CARE: Attached. SPECIAL NEEDS: - Safety Concerns Skin breakdown precautions needed due to skin breakdown risk PRECAUTIONS: - Anterior Hip Precaution No abduction No active extension No adduction across midline No external rotation No hip flexion >90 degrees No internal rotation - Posterior Hip Precaution No adduction across midline No external rotation No hip flexion >90 degrees No internal rotation No wheel chair propulsion - Weight Bearing Precaution WBAT left LE PATIENT NEEDS ACTIVE AND ONGOING THERAPEUTIC INTERVENTION OF MULTIPLE THERAPY DISCIPLINES, INCLUDING: - Dietary and Nutrition Adequate Nutrition. Nutritional Education. Nutritional Supplements. PATIENT NEEDS CLOSE MEDICAL SUPERVISION BY A REHABILITATION PHYSICIAN FOR: Coordination of Treatment Team Post-Op Complications Wound Care PATIENT REQUIRES 24X7 REHAB NURSING FOR MEDICAL AND FUNCTIONAL MGT. OF THE FOLLOWING DEFICITS: Disease Management Medication Management Patient/Family Education Providing Safe Environment Skin Integrity PATIENT REQUIRES INTENSIVE, COORDINATED INTERDISCIPLINARY APPROACH TO REHAB: Arranging Home Equipment/Services Discharge Planning Family Intervention/Training Residential Therapist/Case Management PATIENT REHAB POTENTIAL: Marques BENAVIDEZ is able and expected to receive 3 hours of individualized therapy daily on at least 5 of e very 7 days Marques BENAVIDEZ's prognosis for significant practical improvement within a reasonable period of time appea rs Fair Expected level of measurable improvement will be of a practical value to Marques BENAVIDEZ's functional capa city or adaptations to impairments Has a viable Discharge Plan Medically appropriate; condition is sufficiently stable to participate in intensive rehab program DISCHARGE PLAN: - Estimated Length of Stay (days) 14. - Consensus on plan Discharge plan has been discussed with primary caregiver. Patient/Family is in agreement with the polina n. Primary caregiver is in agreement with the plan. - Patient/Family Goals Return home with assistance. - Planned Living Setting Upon Discharge Home, to live with Family/Relatives. Transitional Living. RECOMMENDED CARE LEVEL: IRF RECOMMENDATION DETAILS: Recommended Admission to Comprehensive Rehabilitation Program to Increase Functional Desha SCREENER'S COMPLETENESS CONFIRMATION: - Screening Confirmation The patient data collection on this preadmission screening form is finished PHYSICIANS REVIEW AND ADMISSION DETERMINATION Admit - Based on my review of the Pre-Admission Screening results, in my medical judgment and experie nce, I concur with the findings and recommend admission to [facility], as this patient requires an IRF level of care. SIGNATURE PANEL: Clinical Liaison - [electronically] signed by Denise Self on 11/08/2019 at 09:38 (CDT) Clinical Liaison - [electronically] signed by Reji Nunez RN on 11/08/2019 at 09:56 (CDT) Physician Reviewer - [electronically] signed by Dr. Rob Anguiano M.D. on 11/08/2019 at 10:08 (CDT )
[2019-11-08] MEDS ORDERED: MAGNESIUM HYDROXIDE 8% 30 ML PO PRN (13:39)
[2019-11-08] MEDS ORDERED: MORPHINE 2 MG/ML SYR IV PRN (13:39)
[2019-11-08] MEDS ORDERED: ONDANSETRON 4 MG/2 ML VIAL IV PRN (13:39)
[2019-11-08] MEDS: HYDROCODONE/APAP 5/325 MG TAB PO SCH ×2 (14:40→20:49)
[2019-11-08] MEDS ORDERED: INFLUENZA VACCINE (for 3y+) 0.5 ML DOSE IMVAC ONE (15:00)
[2019-11-08] MEDS ORDERED: PNEUMOCOCCAL VACCINE 0.5 ML IMVAC ONE (15:00)
--- NOTE | 2019-11-08 17:56 | R.HP ---
FACILITY: [facility] ENCOUNTER DATE AND TIME: 11/08/2019 17:48 (CDT) MR#: [id number] NAME RITA BENAVIDEZ ADDRESS: [address] [place] [address] CITY: [place]IP [address] PHONE: DATE OF : 1930 AGE: 89 SSN# [id number] GENDER: Female DEXTERITY Right-handed MARITAL STATUS RACE White PRE-HOSPITAL LIVING SETTING 01 - Home (private home/apt. board/care, assisted living, longterm, transitional living) PRE-HOSPITAL LIVING WITH Family/Relatives ENCOUNTER PHYSICIAN: Dr. Rob Anguiano M.D. REFERRING DOCTOR: POLI DATE OF ADMISSION: 11/08/2019 17:49 (Central Daylight Time) REFERRING FACILITY [facility] PRIMARY CARE PHYSICIAN POLI HOME TYPE AND DETAILS: Type of home: single family house # of levels in the residence: 1 # of steps within the residence: 2 # of steps to enter the residence: 2 ONSET DATE: 11/08/2019 PRIMARY DIAGNOSIS-RELATED SURGERIES: Emergency Unilateral Hip Fracture - performed by POLI on 11/08/2019 HISTORY OF PRESENT ILLNESS (HPI): Pt. is a 89 yo Right-handed white female. On 11/08/2019 she was admitted to [facility] and underwent emergency surgery for BIPOLAR ARTHOPLASTY (Unilateral Hip Fracture) by POLI. Pre-morbidly, Pt. was independent/mod-I in Safety Awareness, Balance, Social Cognition, Endurance, Co mmunication, and Self-Care; and she had good Locomotion, Safety Awareness, Balance, Social Cognition, Transfers Control, Endurance, and Self-Care. Currently, she has deficits of Endurance, Communication, Self-Care, Sphincter Control, Transfers Cont rol, and Social Cognition. Pt. is now referred to [facility] for acute in-patient rehabilitation in order to maximize patient's functional independence in activities of daily living, strength, ROM, and mobi lity. Patient has realistic goal of being discharged at assistance level 2-maxA to reside at Home with Fam sri/Relatives. Rita Benavidez is a 89 year old women that lives in a single story home with her and uses a walker to ambulate independently. Last week she was at home and somewhere close to midnight, was trying to reach her walker while losing her balance and falling down and was not able to get up. Patient fell on her le ft hip area. Denies any head injury but was not able to get up. Family was contacted and patients daughter went over to the house to help bring her up to the emergency room. After she was evaluated in the ER she was admitted at [facility] and is hemodynamically stable with relatively stable labs. He is now medically stable but in need of 24 hour nursing, doctor supervision and oversight while receiving active and ongoing participate in 3 hours of therapy a day/15 hours per week and receive care with intensive interdisciplinary approach. MEDICATION ALLERGIES: No Known Drug Allergies (NKDA) ENVIRONMENTAL ALLERGIES: - Substance Allergies None Known - Other Allergies None Known PAST MEDICAL HISTORY: IMPAIRED FASTING GLUCOSE HYPERTENSION MIXED HYPERLIPIDEMIA DIVERTICULOSIS HYPERCOAGULABLE STATE DEPRESSION PAST SURGICAL HISTORY: CATARACT SURGERY BREAST BIOPSY HERNIA REPAIR UTERINE PROLAPSE REPAIR FAMILY HISTORY: Family history is not contributory. SOCIAL HISTORY: - Home Living Family/Relatives REVIEW OF SYSTEMS: - Gen No Chills Fatigue No Fever - Eyes No Double Vision No itchiness - ENMT No Difficulty Swallowing - CVS No Chest Discomfort No Chest Pain No Fatigue No Weight Gain - Resp No Cough No Shortness of Breath - GI Continent No Abdominal Pain Constipation No Diarrhea - Continent No Kidney Pain No Painful Urination No Urinary Urgency - MSK No Joint Pain Muscle Cramps Stiffness - Skin No Itching No Rash No Suspicious Lesions - Neuro Coordination Difficulty No Difficulty with Concentration No Memory Loss No Seizures Weakness - Psych No Anxiety No Depression No HIV Exposure No Persistent Infections No Seasonal Allergies - Endo No Cold/Heat Intolerance No Excessive Hunger No Excessive Thirst No Excessive Urination PHYSICAL EXAM - Gen Alert and awake Lying in bed No apparent distress Oriented to: person, time, and place - Skin No skin breakdown. Normacephalic - Eyes No abnormalities - ENMT No abnormalities - Neck No abnormalities - CVS RRR - Chest No abnormalities - Abd Soft - GI Non distended Deferred - No abnormalities - Ext Mild left lower extremity edema. Left hip surgical site has good hemostasis. - MSK 4+/5 weakness in left lower extremity - Neuro 4/5 strength left lower extremity. - Psych No abnormalities VITAL SIGNS Temperature: 97.8 F SBP/DBP: 136/60 Pulse: 67 Resp: 16 NURSING: - Shower allowing shower - Skin care per protocol PRECAUTIONS: - Anterior Hip Precaution No abduction No active extension No adduction across midline No external rotation No hip flexion >90 degrees No internal rotation - Posterior Hip Precaution No adduction across midline No external rotation No hip flexion >90 degrees No internal rotation No wheel chair propulsion - Weight Bearing Precaution WBAT left LE ACTIVITIES OOB only with supervision QI SCORES: - Self-Care A. Eating 06-Independent B. Oral hygiene 03-Partial/moderate assistance C. Toileting hygiene 02-Substantial/maximal assistance E. Shower/bathe self 02-Substantial/maximal assistance F. Upper body dressing 03-Partial/moderate assistance G. Lower body dressing 88-Not attempted due to medical condition or safety concerns H. Putting on/taking off footwear 88-Not attempted due to medical condition or safety concerns - Mobility B. Sit to lying 02-Substantial/maximal assistance C. Lying to sitting on side of bed 02-Substantial/maximal assistance D. Sit to stand 02-Substantial/maximal assistance E. Chair/wlr-me-[id number] transfer 02-Substantial/maximal assistance F. Toilet transfer 02-Substantial/maximal assistance G. Car transfer 88-Not attempted due to medical condition or safety concerns I. Walk 10 feet 02-Substantial/maximal assistance J. Walk 50 feet with two turns 88-Not attempted due to medical condition or safety concerns K. Walk 150 feet 88-Not attempted due to medical condition or safety concerns L. Walking 10 feet on uneven surfaces 88-Not attempted due to medical condition or safety concerns M. 1 step (curb) 88-Not attempted due to medical condition or safety concerns N. 4 steps 88-Not attempted due to medical condition or safety concerns O. 12 steps 88-Not attempted due to medical condition or safety concerns P. Picking up object 06-Independent R. Wheel 50 feet with two turns 88-Not attempted due to medical condition or safety concerns S. Wheel 150 feet 88-Not attempted due to medical condition or safety concerns - Bladder and Bowel Bladder continence 0-Always continent Bowel continence 0-Always continent - Endurance Fair - Balance Fair - Safety Awareness Fair CURRENT FUNC. DEFICITS: Mobility, Endurance, Balance, Safety Awareness, and Self-Care MEDICATIONS: - Other See attached MAR (Medication Administration Record) ASSESSMENT: Pt. is a 89 yo Right-handed white female.On 11/08/2019 she was admitted to [facility] an d underwent emergency surgery for BIPOLAR ARTHOPLASTY (Unilateral Hip Fracture) by POLI.Pre-morbidly, Pt. was independent/mod-I in Safety Awareness, Balance, Social Cognition, Endurance, Communication, and Self-Care; and she had good Locomotion, Safety Awareness, Balance, Social Cognition, Transfers Co ntrol, Endurance, and Self-Care.Currently, she has deficits of Endurance, Communication, Self-Care, S phincter Control, Transfers Control, and Social Cognition.Pt. is now referred to [facility] for acute in-patient rehabilitation in order to maximize patient's functional independe nce in activities of daily living, strength, ROM, and mobility.- Rehab Goal Patient has realistic goal of being discharged at assistance level 2-maxA to reside at Home with Fam sri/Relatives. Rita Benavidez is a 89 year old women that lives in a single story home with her and uses a walker to ambulate independently. Last week she was at home and somewhere close to midnight, was trying to reach her walker while losing her balance and falling down and was not able to get up. Patient fell on her le hip area. Denies any head injury but was not able to get up. Family was contacted and patients daughter went over to the house to help bring her up to the emergency room. After she was evaluated in the ER she was admitted at [facility] and is hemodynamically stable with relatively stable labs. He is now medically stable but in need of 24 hour nursing, doctor supervision and oversight while receiving active and ongoing participate in 3 hours of therapy a day/15 hours per week and receive care with intensive interdisciplinary approach.REHAB PLAN: - Physical Therapy Decreased range of motion - to improve, our physical therapists will perform initial evaluation of pt 's status upon admission and devise an individualized program for increasing patient's Range of Motio n. Gait dysfunction - to improve, our physical therapists will perform initial evaluation of pt's status upon admission and devise an individualized program for Gait Training, and Wheel Chair mobility Inability to transfer - to improve, our physical therapists will perform initial evaluation of pt's s tatus upon admission and devise an individualized program for Bed mobility Need for home safety evaluation - to improve, our physical therapists will perform initial evaluation of pt's status upon admission and devise an individualized program for Home Evaluation Need in caregiver upon discharge - to improve, our physical therapists will perform initial evaluatio n of pt's status upon admission and devise an individualized program for Caregiver Training Edema - to improve, our physical therapists will perform initial evaluation of pt's status upon admi ssion and devise an individualized program for Elevation Training, and Lymphedema Therapy New precaution - to improve, our physical therapists will perform initial evaluation of pt's status u heidi admission and devise an individualized program for Patient precaution education Poor endurance - to improve, our physical therapists will perform initial evaluation of pt's status u heidi admission and devise an individualized program for Endurance Training Weakness - to improve, our physical therapists will perform initial evaluation of pt's status upon ad mission and devise an individualized program for Aquatic Therapy, Neuromuscular Reeducation, and Stre ngthening Achieving independence - to improve, our physical therapists will perform initial evaluation of pt's status upon admission and devise an individualized program for Community Reintegration Activities - Occupational Therapy ADL deficits - to improve, our occupation therapists will perform initial evaluation of pt's status u heidi admission and devise an individualized program for Bathing, Bed mobility, Community Reintegration , Cooking, Dressing, Eating, Fine Motor Skills, Grooming, Homemaking, Kitchen Mobility, Laundry, Dionne ent Education, Safety Awareness, Splinting - Positioning, Transfers(Toilet, Tub, Shower), and Wheel C hair Management Cognitive deficits - to improve, our occupation therapists will perform initial evaluation of pt's st atus upon admission and devise an individualized program for Cognition - orientation Need for residential care facility manager - to improve, our occupation therapists will perform initial evaluation of pt's s tatus upon admission and devise an individualized program for Caregiver Training Weakness - to improve, our occupation therapists will perform initial evaluation of pt's status upon admission and devise an individualized program for Aquatic Therapy, Balance, Endurance, UE ROM, and U E strengthening MEDICAL PLAN: - Anterior Hip Precaution No abduction No active extension No adduction across midline No external rotation No hip flexion >90 degrees No internal rotation - Diet - Liquid Texture Start Regular - Tube Feed Start N/A - Diet Type Start Regular - Posterior Hip Precaution No adduction across midline No external rotation No hip flexion >90 degrees No internal rotation No wheel chair propulsion - Weight Bearing Precaution WBAT left LE - Skin care per protocol - Other See attached MAR (Medication Administration Record) - Diet - Solid Texture Regular - Shower shower DISCHARGE PLAN: - Estimated Length of Stay (days) 14. - Consensus on plan Discharge plan has been discussed with primary caregiver. Patient/Family is in agreement with the polina n. Primary caregiver is in agreement with the plan. - Patient/Family Goals Return home with assistance. - Planned Living Setting Upon Discharge Home, to live with Family/Relatives. Transitional Living. SIGNATURE PANEL: (CDT)
--- NOTE | 2019-11-08 17:58 | PAPE ---
PATIENT: [facility] MR# [id number] REFERRING DOCTOR POLI PRIMARY CARE PHYSICIAN POLI EVALUATION DATE AND TIME 11/08/2019 17:56 (CDT) NAME RITA KIRKLAND DATE OF 1930 AGE 89 PHONE N# [id number] GENDER female EVALUATING PHYSICIAN Dr. Rob Anguiano M.D. ADMISSION DIAGNOSIS: BIPOLAR ARTHOPLASTY ONSET DATE 11/08/2019 POST-ADMISSION FUNCTIONAL/MEDICAL STATUS: - Bladder Same accident frequency: Ind - No accidents in the past 7 days - Bowel Same accident frequency: Ind - No accidents in the past 7 days - Walking Same score based on distance walked: 0(N/A) Same score based on distance walked: 1(<=50ft) - Wheelchair Same score based on distance traveled: 0(N/A) STATUS CHANGE EVALUATION: No change in Functional or Medical Status is identified compared with Pre-Admission screening. PATIENT NEEDS CLOSE MEDICAL SUPERVISION BY A REHABILITATION PHYSICIAN FOR: Coordination of Treatment Team Post-Op Complications Wound Care PATIENT REQUIRES 24X7 REHAB NURSING FOR MEDICAL AND FUNCTIONAL MGT. OF THE FOLLOWING DEFICITS: Disease Management Medication Management Patient/Family Education Providing Safe Environment Skin Integrity PATIENT REQUIRES INTENSIVE, COORDINATED INTERDISCIPLINARY APPROACH TO REHAB: Arranging Home Equipment/Services Discharge Planning Family Intervention/Training Perioperative Assistant/Case Management LIST OF IDENTIFIED AND POTENTIAL PROBLEMS: Alteration in leisure activities Bladder, Incontinence Bowel, Incontinence Infection, Actual or Potential Mobility Impaired Pain, Alteration in Comfort Self Care Deficit Skin Integrity, Actual or Potential Urinary Tract Infection (UTI), Actual or Potential PATIENT COULD BE AT RISK FOR COMPLICATIONS FROM ADVERSE MEDICAL CONDITIONS DUE TO HIS/HER COMORBIDITI ES AND THE RIGORS OF THE INTENSIVE REHABILLITATION PROGRAM. METHODS OR INTERVENTIONS TO AVOID COMPLIC ATIONS INCLUDE: - Bleeding Assess lab values and manage abnormalities. Nursing to teach precautions for anti-coagulation therapy . Wound to be assessed every shift. - Infection Clinical staff to assess and manage the signs and symptoms of infection including fever, redness, war mth, etc. - Urinary Tract Infection - Falls Patient will be evaluated for Fall Precautions and will be placed on Fall Precautions as indicated pe r protocol. - Skin Breakdown Nursing will assess skin daily using assessment tool and will place on Skin Breakdown Precautions as indicated per protocol. - Pain Clinical staff may employ non-medication methods such as massage, distraction, decrease stimulus, etc . as needed. Clinical staff will assess patient's pain level every shift per protocol to assess and e nsure pain management effectiveness. Medications will be given and the pain level re-assessed. PRELIMINARY PLAN OF CARE: - Physical Therapy Patient needs Physical Therapy for a daily minimum of 1.5 hours at least 5 out of 7 days, to improve: Mobility, Strengthening, Transfers, Stretching, ROM, Endurance, Ability to manage stairs, Gait, and Balance. - Speech Therapy Patient needs Speech Therapy for a daily minimum of 0.5 hours at least 5 out of 7 days, to improve: S wallowing, Cognition, Language Skills, and Compensatory Strategies. - Rehabilitation Nursing Patient requires 24x7 Rehabilitation Nursing for: Pain Issues, Identifying and preventing risk factor s, Monitoring and reporting current medical conditions, Assisting with ambulation and transfer, Leann ting with all ADL-s, Teaching patients about disease process and medications, Family teaching, Provid ing safe environment, Bowel and Bladder Issues, Skin Integrity, and Medication Management. Patient needs Perioperative Assistant and/or Case Management for: Discharge Planning, Arranging Home Equipmen t or Services, and Family Interventions. - Dietary and Nutrition Services Patient needs Dietary and Nutrition Services for: Adequate Nutrition, Nutritional Supplements, and Nu tritional Education. - Occupational Therapy Patient needs Occupational Therapy for a daily minimum of 1.5 hours at least 5 out of 7 days, to impr ove Activities of Daily Living, including: Eating, Grooming, Bathing, Dressing, Toileting, Toilet Tra nsfers, Community Reintegration, Higher functional activities, Adaptive Equipment, Splinting, Househo ld Tasks, and Other activities as determined. QI SCORES: - Self-Care A. Eating 06-Independent B. Oral hygiene 03-Partial/moderate assistance C. Toileting hygiene 02-Substantial/maximal assistance E. Shower/bathe self 02-Substantial/maximal assistance F. Upper body dressing 03-Partial/moderate assistance G. Lower body dressing 88-Not attempted due to medical condition or safety concerns H. Putting on/taking off footwear 88-Not attempted due to medical condition or safety concerns - Mobility B. Sit to lying 02-Substantial/maximal assistance C. Lying to sitting on side of bed 02-Substantial/maximal assistance D. Sit to stand 02-Substantial/maximal assistance E. Chair/lxl-mf-[id number] transfer 02-Substantial/maximal assistance F. Toilet transfer 02-Substantial/maximal assistance G. Car transfer 88-Not attempted due to medical condition or safety concerns I. Walk 10 feet 02-Substantial/maximal assistance J. Walk 50 feet with two turns 88-Not attempted due to medical condition or safety concerns K. Walk 150 feet 88-Not attempted due to medical condition or safety concerns L. Walking 10 feet on uneven surfaces 88-Not attempted due to medical condition or safety concerns M. 1 step (curb) 88-Not attempted due to medical condition or safety concerns N. 4 steps 88-Not attempted due to medical condition or safety concerns O. 12 steps 88-Not attempted due to medical condition or safety concerns P. Picking up object 06-Independent R. Wheel 50 feet with two turns 88-Not attempted due to medical condition or safety concerns S. Wheel 150 feet 88-Not attempted due to medical condition or safety concerns - Bladder and Bowel Bladder continence 0-Always continent Bowel continence 0-Always continent - Endurance Fair - Balance Fair - Safety Awareness Fair POTENTIAL FUNCTIONAL GOALS FOR PATIENT TO ACHIEVE BY DISCHARGE: - Safety Precaution Patient will remain free from falls or injury at time of discharge. - Bed Mobility Patient will perform bed mobility at 4-Lio level of assistance. - Transfers Patient will complete transfers from bed to chair at 4-Lio level of assistance. - Mobility Patient will ambulate 150 ft with 4-Lio level of assistance with RW. PATIENT REHAB POTENTIAL Marques KIRKLAND is able and expected to receive 3 hours of individualized therapy daily on at least 5 of e very 7 days Marques KIRKLAND's prognosis for significant practical improvement within a reasonable period of time appea rs Fair Expected level of measurable improvement will be of a practical value to Marques KIRKLAND's functional [facility] or adaptations to impairments Has a viable Discharge Plan Medically appropriate; condition is sufficiently stable to participate in intensive rehab program DISCHARGE PLAN: - Estimated Length of Stay (days) 14. - Consensus on plan Discharge plan has been discussed with primary caregiver. Patient/Family is in agreement with the polina n. Primary caregiver is in agreement with the plan. - Patient/Family Goals Return home with assistance. - Planned Living Setting Upon Discharge Home, to live with Family/Relatives. Transitional Living. CONCLUSION ON REHABILITATION NECESSITY: I have evaluated patient's pre-admission functional status and, comparing it to the patient's post-ad mission functional status now, I conclude that the pre-admission assessment was accurate. Patient's c ondition on admission supports the medical necessity of admission to [facility]. It is safe to proceed with patient's therapy program. SIGNATURE PANEL: (CDT)
[2019-11-08] MEDS: APIXABAN 2.5 MG TABLET PO SCH (20:48)
[2019-11-08] MEDS: DOCUSATE NA/SENNA CONC 1 TAB PO SCH (20:48)
[2019-11-08] MEDS: GABAPENTIN 100 MG CAP PO SCH (20:48)
[2019-11-08] MEDS: ATORVASTATIN 20 MG TAB PO SCH (20:48)
[2019-11-08] MEDS: carvediloL 6.25 MG TAB PO SCH (20:48)
[2019-11-09 06:59] LABS: Absolute Lymphocytes (CBC) 1.4 K/uL (0.7-4.9); Basophils % 0.4 % (0-1.3); Hematocrit 30.9 % (36.0-45.0); Lymphocytes % 16.2 % (15.3-44.8); MPV 9.8 fL (7.6-11.3); RBC Red Blood Cell Count 3.55 M/uL (3.86-4.86)
[2019-11-09 07:21] LABS: Magnesium 2.2 mg/dL (1.8-2.4)
[2019-11-09 07:27] LABS: Albumin 2.4 g/dL (3.4-5.0); BUN Blood Urea Nitrogen 24 mg/dL (7-18); Bicarbonate 30 mmol/L (21-32); Glucose Level 124 mg/dL (74-106); Prealbumin 11.1 mg/dL (20-40); Sodium Level 142 mmol/L (136-145)
[2019-11-09] MEDS ORDERED: MAGNESIUM OXIDE 400 MG TAB PO SCH (08:00)
[2019-11-09] MEDS: MAGNESIUM OXIDE 400 MG TAB PO SCH (08:00)
[2019-11-09] MEDS: carvediloL 6.25 MG TAB PO SCH ×2 (08:45→20:00)
[2019-11-09] MEDS: AMLODIPINE 5 MG TAB PO SCH (08:46)
[2019-11-09] MEDS: APIXABAN 2.5 MG TABLET PO SCH ×2 (08:46→20:37)
[2019-11-09] MEDS: HYDROCODONE/APAP 5/325 MG TAB PO SCH ×3 (08:46→20:38)
[2019-11-09] MEDS: SERTRALINE HCL 50 MG TAB PO SCH (08:47)
[2019-11-09] MEDS: GABAPENTIN 100 MG CAP PO SCH ×2 (08:47→20:37)
--- NOTE | 2019-11-09 10:02 | P.RH.PN ---
Estimated Length of Stay: 14 Expected Discharge Date: 11/21/19 Discharge Disposition Plan: Home Family Support: Yes Senior Living Goal: Mobility, Transfers, Self Care Vital Signs: Last Vital Signs Temp 98.1 F 11/09/19 07:08 Pulse 67 11/09/19 08:46 Resp 16 11/09/19 08:46 BP 153/63 H 11/09/19 08:46 Pulse Ox 97 11/09/19 08:46 Laboratory: Laboratory Last Values WBC 8.9 K/uL (4.3-10.9) 11/09/19 06:43 RBC 3.55 M/uL (3.86-4.86) L D 11/09/19 06:43 Hgb 9.9 g/dL (12.0-15.0) L 11/09/19 06:43 Hct 30.9 % (36.0-45.0) L 11/09/19 06:43 MCV 87.0 fL (80-100) 11/09/19 06:43 MCH 28.0 pg (27.0-35.0) 11/09/19 06:43 MCHC 32.2 g/dL (32.0-36.0) 11/09/19 06:43 RDW 15.9 % (12.1-15.2) H 11/09/19 06:43 Plt Count 174 K/uL (152-406) D 11/09/19 06:43 MPV 9.8 fL (7.6-11.3) 11/09/19 06:43 Neutrophils % 68.5 % (41.7-73.7) 11/09/19 06:43 Lymphocytes % 16.2 % (15.3-44.8) 11/09/19 06:43 Monocytes % 10.0 % (3.3-12.3) 11/09/19 06:43 Eosinophils % 4.9 % (0-4.4) H 11/09/19 06:43 Basophils % 0.4 % (0-1.3) 11/09/19 06:43 Absolute Neutrophils 6.1 K/uL (1.8-8.0) 11/09/19 06:43 Absolute Lymphocytes 1.4 K/uL (0.7-4.9) 11/09/19 06:43 Absolute Monocytes 0.9 K/uL (0.1-1.3) 11/09/19 06:43 Absolute Eosinophils 0.4 K/uL (0-0.5) 11/09/19 06:43 Absolute Basophils 0.0 K/uL (0-0.5) 11/09/19 06:43 Sodium 142 mmol/L (136-145) 11/09/19 06:43 Potassium 4.0 mmol/L (3.5-5.1) 11/09/19 06:43 Chloride 107 mmol/L (98-107) 11/09/19 06:43 Carbon Dioxide 30 mmol/L (21-32) 11/09/19 06:43 BUN 24 mg/dL (7-18) H 11/09/19 06:43 Creatinine 0.55 mg/dL (0.55-1.3) 11/09/19 06:43 Estimated GFR > 90 mL/min (=/>90) 11/09/19 06:43 Glucose 124 mg/dL (74-106) H 11/09/19 06:43 Calcium 8.5 mg/dL (8.5-10.1) 11/09/19 06:43 Magnesium 2.2 mg/dL (1.8-2.4) 11/09/19 06:43 Albumin 2.4 g/dL (3.4-5.0) L D 11/09/19 06:43 Prealbumin 11.1 mg/dL (20-40) L 11/09/19 06:43 Weight: 151 lb 4.8 oz Wound Present: Yes Closed Surgical Incision Present: Yes Negative Pressure Wound Therapy Present: No Physician Update: Labs reviewed and are stable. She will be evaluated by speech therapy today. She is constipated and is on stool softners. Hs is at max assistance for transfers and ambulation. She has features of mild to moderate dementia and does not follow instructions consistently. She will likely need 24/ 7 suprevision for safty. Functional Improvement: pt presents with severe generalized weakness. pt demonstrates poor trunk strength. pt exhibits poor balance and stability in both sitting and standing during functional activity. pt demonstrates some delayed processing and likely cognitive impairment. pt experiences poor tolerance to functional activity due to pain, fatigue, weakness, and SOB. Skilled PT services are necessary to address the above mentioned impairments and functional limitations. Summary: Patient's care plan and halfway goals have been reviewed and revised as necessary. Please see the Rehabilitation Signature page for all necessary signatures.
[2019-11-09] MEDS: BENAZEPRIL 20 MG TAB PO SCH (12:36)
--- NOTE | 2019-11-09 12:46 | PN ---
Date of Progress Note: 11/09/2019 Subjective: Patient was seen this morning for followup. She was sitting in the wheelchair. Her hus band was present with her at bedside. No nausea or vomiting. No abdominal pain. Objective: Vital Signs: Reviewed. HEENT: Unremarkable. Lungs: Clear to auscultation. Heart: Sounds normal. Abdomen: Soft. Bowel sounds normal. No guarding, rigidity, tenderness, or distention. Extremities: No leg edema. Laboratory Data: White count 8.9, hemoglobin 9.9, platelets 174. Sodium 142, potassium 4, chloride 107, bicarb 30, BUN 24, creatinine 0.55, glucose 124. Impression: 1.Hip fracture. 2.Anemia due to acute blood loss. 3.Hypertension. 4.Mixed hyperlipidemia. 5.Hypercoagulable state. 6.Chronic anticoagulation therapy. Plan: Continue current medication. We will go ahead and continue anticoagulation therapy, antihyper tensive medication, and pain medicine. Patient does not have any trouble voiding. She is passing so me gas, but has not had a bowel movement. We will continue stool softener. RENÉE/MODL Voice ID: [id number] Report ID: [id number]
--- NOTE | 2019-11-09 13:55 | FAST ---
ENCOUNTER DATE AND TIME: 11/09/2019 08:00 (CDT) NAME RITA KIRKLAND DATE OF : 1930 DATE OF ADMISSION: 11/08/2019 17:49 (CDT) PHONE: AGE: 89 N# [id number] GENDER: Female ENCOUNTER PHYSICIAN: Dr. Rob Anguiano M.D. ADMISSION DIAGNOSIS: - Orthopaedic Disorders 08 - Unilateral Hip Fracture (08.11) BIPOLAR ARTHOPLASTY. EATING: EATING - STEP 1: Does the patient complete the activity by him/herself with no assistance (physical, verbal/nonverbal cueing, setup/clean-up)? No. EATING - STEP 2: Does the patient need only setup/clean-up assistance from one helper? Yes. 1. [id number] ADMISSION PERFORMANCE: Setup or clean-up assistance CODE: 05 ORAL HYGIENE: Not assessed/no information CODE: - TOILETING HYGIENE: Not assessed/no information CODE: - BATHING: SHOWER/BATHE SELF - STEP 1: Does the patient complete the activity by him/herself with no assistance (physical, verbal/nonverbal cueing, setup/clean-up)? No. SHOWER/BATHE SELF - STEP 2: Does the patient need only setup/clean-up assistance from one helper? No. SHOWER/BATHE SELF - STEP 3: Does the patient need only verbal/nonverbal cueing or touching/steadying/contact guard assistance fro m one helper? No. SHOWER/BATHE SELF - STEP 4: Does the patient need physical assistance - for example lifting or trunk support from one helper - wi th the helper providing less than half of the effort? No. SHOWER/BATHE SELF - STEP 5: Does the patient need physical assistance - for example lifting or trunk support from one helper - wi th the helper providing more than half of the effort? Yes. 1. [id number] ADMISSION PERFORMANCE: Substantial/maximal assistance CODE: 02 DRESSING - UPPER BODY: DRESSING - UPPER BODY - STEP 1: Does the patient complete the activity by him/herself with no assistance (physical, verbal/nonverbal cueing, setup/clean-up)? No. DRESSING - UPPER BODY - STEP 2: Does the patient need only setup/clean-up assistance from one helper? No. DRESSING - UPPER BODY - STEP 3: Does the patient need only verbal/nonverbal cueing or touching/steadying/contact guard assistance fro m one helper? No. DRESSING - UPPER BODY - STEP 4: Does the patient need physical assistance - for example lifting or trunk support from one helper - wi th the helper providing less than half of the effort? Yes. 1. [id number] ADMISSION PERFORMANCE: Partial/moderate assistance CODE: 03 DRESSING - LOWER BODY: DRESSING - LOWER BODY - STEP 1: Does the patient complete the activity by him/herself with no assistance (physical, verbal/nonverbal cueing, setup/clean-up)? No. DRESSING - LOWER BODY - STEP 2: Does the patient need only setup/clean-up assistance from one helper? No. DRESSING - LOWER BODY - STEP 3: Does the patient need only verbal/nonverbal cueing or touching/steadying/contact guard assistance fro m one helper? No. DRESSING - LOWER BODY - STEP 4: Does the patient need physical assistance - for example lifting or trunk support from one helper - wi th the helper providing less than half of the effort? No. DRESSING - LOWER BODY - STEP 5: Does the patient need physical assistance - for example lifting or trunk support from one helper - wi th the helper providing more than half of the effort? Yes. 1. [id number] ADMISSION PERFORMANCE: Substantial/maximal assistance CODE: 02 PUTTING ON/TAKING OFF FOOTWEAR: FOOTWEAR - STEP 1: Does the patient complete the activity by him/herself with no assistance (physical, verbal/nonverbal cueing, setup/clean-up)? No. FOOTWEAR - STEP 2: Does the patient need only setup/clean-up assistance from one helper? No. FOOTWEAR - STEP 3: Does the patient need only verbal/nonverbal cueing or touching/steadying/contact guard assistance fro m one helper? No. FOOTWEAR - STEP 4: Does the patient need physical assistance - for example lifting or trunk support from one helper - wi th the helper providing less than half of the effort? No. FOOTWEAR - STEP 5: Does the patient need physical assistance - for example lifting or trunk support from one helper - wi th the helper providing more than half of the effort? No. FOOTWEAR - STEP 6: Does the helper provide all of the effort? OR Is the assistance of two or more helpers required to co mplete the activity? Yes. 1. [id number] ADMISSION PERFORMANCE: Dependent CODE: 01 DOES THE PATIENT USE A WHEELCHAIR/SCOOTER? CODE: EXPR INDICATE THE TYPE OF WHEELCHAIR/SCOOTER USED: CODE: EXPR INDICATE THE TYPE OF WHEELCHAIR/SCOOTER USED: CODE: EXPR BLADDER AND BOWEL: CODE: EXPR CODE: EXPR SIGNATURE PANEL: The following modified sections: 1. [id number] Admission Performance, 1. [id number] Admission Performance, 1. [id number] Admission Performance, 1. [id number] Admission Performance, 1. [id number] Admission Performance were [electronically] signed by Mariangel Pickett OT on TueNov 09 2019 13:54:34 GMT-0500 ([facility] Daylight Time)
[2019-11-09 16:44] LABS: Urine Appearance CLEAR; Urine Bilirubin NEGATIVE (NEG); Urine Blood NEGATIVE (NEG); Urine Color YELLOW; Urine Glucose NEGATIVE (NEG); Urine Protein NEGATIVE (NEG); Urine Urobilinogen 0.2 mg/dL (0.2-1.0)
[2019-11-09 17:23] LABS: Urine Bacteria <20 /HPF (<20); Urine Culture Reflex Order NOT NEEDED; Urine RBC NONE SEEN /HPF (NONE SEEN)
[2019-11-09] MEDS: JUVEN PACKET PO SCH ×2 (20:00)
[2019-11-09] MEDS: ATORVASTATIN 20 MG TAB PO SCH (20:37)
[2019-11-09] MEDS: DOCUSATE NA/SENNA CONC 1 TAB PO SCH (20:38)
--- NOTE | 2019-11-10 02:14 | FAST ---
SHIFT START DATE/TIME: 11/09/2019 19:00 (CDT) SHIFT END DATE/TIME: 11/10/2019 07:00 (CDT) NAME RITA KIRKLAND DATE OF : 1930 DATE OF ADMISSION: 11/08/2019 17:49 (CDT) PHONE: AGE: 89 N# [id number] GENDER: Female ENCOUNTER PHYSICIAN: Dr. Rob Anguiano M.D. ADMISSION DIAGNOSIS: - Orthopaedic Disorders 08 - Unilateral Hip Fracture (08.11) BIPOLAR ARTHOPLASTY. EATING: Not assessed/no information CODE: - ORAL HYGIENE: Not assessed/no information CODE: - TOILETING HYGIENE: TOILETING HYGIENE - STEP 1: Does the patient complete the activity by him/herself with no assistance (physical, verbal/nonverbal cueing, setup/clean-up)? No. TOILETING HYGIENE - STEP 2: Does the patient need only setup/clean-up assistance from one helper? No. TOILETING HYGIENE - STEP 3: Does the patient need only verbal/nonverbal cueing or touching/steadying/contact guard assistance fro m one helper? No. TOILETING HYGIENE - STEP 4: Does the patient need physical assistance - for example lifting or trunk support from one helper - wi th the helper providing less than half of the effort? No. TOILETING HYGIENE - STEP 5: Does the patient need physical assistance - for example lifting or trunk support from one helper - wi th the helper providing more than half of the effort? No. TOILETING HYGIENE - STEP 6: Does the helper provide all of the effort? OR Is the assistance of two or more helpers required to co mplete the activity? Yes. 1. [id number] ADMISSION PERFORMANCE: Dependent CODE: 01 BATHING: Not assessed/no information CODE: - DRESSING - UPPER BODY: Not assessed/no information CODE: - DRESSING - LOWER BODY: Not assessed/no information CODE: - PUTTING ON/TAKING OFF FOOTWEAR: Not assessed/no information CODE: - ROLL LEFT AND RIGHT: ROLL LEFT AND RIGHT - STEP 1: Does the patient complete the activity by him/herself with no assistance (physical, verbal/nonverbal cueing, setup/clean-up)? No. ROLL LEFT AND RIGHT - STEP 2: Does the patient need only setup/clean-up assistance from one helper? No. ROLL LEFT AND RIGHT - STEP 3: Does the patient need only verbal/nonverbal cueing or touching/steadying/contact guard assistance fro m one helper? No. ROLL LEFT AND RIGHT - STEP 4: Does the patient need physical assistance - for example lifting or trunk support from one helper - wi th the helper providing less than half of the effort? No. ROLL LEFT AND RIGHT - STEP 5: Does the patient need physical assistance - for example lifting or trunk support from one helper - wi th the helper providing more than half of the effort? No. ROLL LEFT AND RIGHT - STEP 6: Does the helper provide all of the effort? OR Is the assistance of two or more helpers required to co mplete the activity? Yes. 1. [id number] ADMISSION PERFORMANCE: Dependent CODE: 01 SIT TO LYING: SIT TO LYING - STEP 1: Does the patient complete the activity by him/herself with no assistance (physical, verbal/nonverbal cueing, setup/clean-up)? No. SIT TO LYING - STEP 2: Does the patient need only setup/clean-up assistance from one helper? No. SIT TO LYING - STEP 3: Does the patient need only verbal/nonverbal cueing or touching/steadying/contact guard assistance fro m one helper? No. SIT TO LYING - STEP 4: Does the patient need physical assistance - for example lifting or trunk support from one helper - wi th the helper providing less than half of the effort? No. SIT TO LYING - STEP 5: Does the patient need physical assistance - for example lifting or trunk support from one helper - wi th the helper providing more than half of the effort? No. SIT TO LYING - STEP 6: Does the helper provide all of the effort? OR Is the assistance of two or more helpers required to co mplete the activity? Yes. 1. [id number] ADMISSION PERFORMANCE: Dependent CODE: 01 LYING TO SITTING: LYING TO SITTING ON SIDE OF BED - STEP 1: Does the patient complete the activity by him/herself with no assistance (physical, verbal/nonverbal cueing, setup/clean-up)? No. LYING TO SITTING ON SIDE OF BED - STEP 2: Does the patient need only setup/clean-up assistance from one helper? No. LYING TO SITTING ON SIDE OF BED - STEP 3: Does the patient need only verbal/nonverbal cueing or touching/steadying/contact guard assistance fro m one helper? No. LYING TO SITTING ON SIDE OF BED - STEP 4: Does the patient need physical assistance - for example lifting or trunk support from one helper - wi th the helper providing less than half of the effort? No. LYING TO SITTING ON SIDE OF BED - STEP 5: Does the patient need physical assistance - for example lifting or trunk support from one helper - wi th the helper providing more than half of the effort? No. LYING TO SITTING ON SIDE OF BED - STEP 6: Does the helper provide all of the effort? OR Is the assistance of two or more helpers required to co mplete the activity? Yes. 1. [id number] ADMISSION PERFORMANCE: Dependent CODE: 01 SIT TO STAND: SIT TO STAND - STEP 1: Does the patient complete the activity by him/herself with no assistance (physical, verbal/nonverbal cueing, setup/clean-up)? No. SIT TO STAND - STEP 2: Does the patient need only setup/clean-up assistance from one helper? No. SIT TO STAND - STEP 3: Does the patient need only verbal/nonverbal cueing or touching/steadying/contact guard assistance fro m one helper? No. SIT TO STAND - STEP 4: Does the patient need physical assistance - for example lifting or trunk support from one helper - wi th the helper providing less than half of the effort? No. SIT TO STAND - STEP 5: Does the patient need physical assistance - for example lifting or trunk support from one helper - wi th the helper providing more than half of the effort? No. SIT TO STAND - STEP 6: Does the helper provide all of the effort? OR Is the assistance of two or more helpers required to co mplete the activity? Yes. 1. [id number] ADMISSION PERFORMANCE: Dependent CODE: 01 TRANSFERS: BED, CHAIR: Not assessed/no information CODE: - TRANSFER TOILET: TOILET TRANSFER - STEP 1: Does the patient complete the activity by him/herself with no assistance (physical, verbal/nonverbal cueing, setup/clean-up)? No. TOILET TRANSFER - STEP 2: Does the patient need only setup/clean-up assistance from one helper? No. TOILET TRANSFER - STEP 3: Does the patient need only verbal/nonverbal cueing or touching/steadying/contact guard assistance fro m one helper? No. TOILET TRANSFER - STEP 4: Does the patient need physical assistance - for example lifting or trunk support from one helper - wi th the helper providing less than half of the effort? No. TOILET TRANSFER - STEP 5: Does the patient need physical assistance - for example lifting or trunk support from one helper - wi th the helper providing more than half of the effort? No. TOILET TRANSFER - STEP 6: Does the helper provide all of the effort? OR Is the assistance of two or more helpers required to co mplete the activity? Yes. 1. [id number] ADMISSION PERFORMANCE: Dependent CODE: 01 TRANSFERS: CAR: Not assessed/no information CODE: - WALK 10 FEET: Not assessed/no information CODE: - 1 STEP (CURB): Not assessed/no information CODE: - PICKING UP OBJECT: Not assessed/no information CODE: - DOES THE PATIENT USE A WHEELCHAIR/SCOOTER? CODE: EXPR WHEEL 50 FEET WITH TWO TURNS: Not assessed/no information CODE: - INDICATE THE TYPE OF WHEELCHAIR/SCOOTER USED: CODE: EXPR WHEEL 150 FEET: Not assessed/no information CODE: - INDICATE THE TYPE OF WHEELCHAIR/SCOOTER USED: CODE: EXPR BLADDER AND BOWEL: H350. BLADDER CONTINENCE (3-DAY ASSESSMENT PERIOD): Incontinent daily (at least once a day) CODE: 3 H400. BOWEL CONTINENCE (3-DAY ASSESSMENT PERIOD): Always incontinent (no episodes of continent bowel movements) CODE: 3
[2019-11-10] MEDS ORDERED: MAGNESIUM CITRATE 300 ML BOT PO ONE (08:00)
[2019-11-10] MEDS: JUVEN PACKET PO SCH ×2 (08:00→20:00)
[2019-11-10] MEDS: HYDROCODONE/APAP 5/325 MG TAB PO SCH (08:43)
[2019-11-10] MEDS: APIXABAN 2.5 MG TABLET PO SCH ×2 (08:45→20:08)
[2019-11-10] MEDS: MAGNESIUM OXIDE 400 MG TAB PO SCH (08:45)
[2019-11-10] MEDS: SERTRALINE HCL 50 MG TAB PO SCH (08:45)
[2019-11-10] MEDS: carvediloL 6.25 MG TAB PO SCH ×2 (08:45→20:06)
[2019-11-10] MEDS: GABAPENTIN 100 MG CAP PO SCH ×2 (08:45→20:06)
[2019-11-10] MEDS: BENAZEPRIL 20 MG TAB PO SCH (08:46)
[2019-11-10] MEDS: AMLODIPINE 5 MG TAB PO SCH (08:46)
[2019-11-10] MEDS ORDERED: TAMSULOSIN 0.4 MG SR CAP PO ONE (10:09)
[2019-11-10] MEDS ORDERED: BISACODYL 10 MG RECTAL SUPP PR ONE (11:00)
[2019-11-10] MEDS: TRAMADOL HCL 50 MG TAB PO PRN ×2 (11:02→17:25)
--- NOTE | 2019-11-10 17:03 | PN ---
Date of Progress Note: 11/10/2019 Subjective: Patient was seen this morning for followup. No new complaints or problems reported by p brandon, lying in bed, not in distress. Objective: Vital Signs: Reviewed. HEENT: Unremarkable. Lungs: Clear to auscultation. Heart: Sounds normal. Abdomen: Soft. Bowel sounds normal. No guarding, rigidity, tenderness, or distention. EXTREMITIES: No leg edema. Impression: 1.Urinary retention. 2.Hip fracture. 3.Anemia due to acute blood loss. 4.Hypertension. Plan: Yesterday afternoon, contacted and informed me that the patient had urinary retention and she had not voided after bladder scan was done and since patient was not able to urinate, straight cath w as ordered; and then during nighttime, the patient again had problem with urinary retention and appro ximately had 900 cc of urine per bladder scan and at that time, Perkins catheter was placed. This morn ing, when I saw her, she had no other specific complaints. Patient is getting hydrocodone 3 times a day on scheduled basis. We will discontinue that and I have changed the pain medication to tramadol on a p.r.n. basis. One dose of Dulcolax rectal suppository was ordered. Tamsulosin will be started at 0.4 mg p.o. daily as of today and hopefully we will try to remove Perkins catheter after a couple of days. RENÉE/MODL Voice ID: [id number] Report ID: [id number]
[2019-11-10] MEDS: ATORVASTATIN 20 MG TAB PO SCH (20:06)
[2019-11-10] MEDS: DOCUSATE NA/SENNA CONC 1 TAB PO SCH (20:06)
[2019-11-11] MEDS: MAGNESIUM OXIDE 400 MG TAB PO SCH (08:00)
[2019-11-11] MEDS: JUVEN PACKET PO SCH ×2 (08:00→19:45)
[2019-11-11] MEDS: APIXABAN 2.5 MG TABLET PO SCH ×2 (08:31→19:43)
[2019-11-11] MEDS: TAMSULOSIN 0.4 MG SR CAP PO SCH (08:31)
[2019-11-11] MEDS: BENAZEPRIL 20 MG TAB PO SCH (08:32)
[2019-11-11] MEDS: GABAPENTIN 100 MG CAP PO SCH ×2 (08:32→19:45)
[2019-11-11] MEDS: carvediloL 6.25 MG TAB PO SCH ×2 (08:32→19:44)
[2019-11-11] MEDS: SERTRALINE HCL 50 MG TAB PO SCH (08:33)
[2019-11-11] MEDS: TRAMADOL HCL 50 MG TAB PO PRN ×2 (08:34→16:36)
--- NOTE | 2019-11-11 09:48 | PN ---
Date of Progress Note: 11/11/2019 Subjective: Patient was seen this morning for followup. No new complaints or problems reported by bahman taylor. She was sitting in bed, eating her breakfast. Denies any complaints. Objective: Vital signs: Reviewed. HEENT: Unremarkable. Lungs: Clear to auscultation. Heart: Sounds normal. Abdomen: Soft. Bowel sounds normal. No guarding, rigidity, tenderness, or distention. Extremities: No leg edema. Impression: 1.Hip fracture. 2.Anemia due to acute blood loss. 3.Hypertension. 4.Mixed hyperlipidemia. 5.Chronic anticoagulation therapy. Plan: We will continue current medications. Continue current anticoagulation therapy, antihypertens jose medication, and pain medication which was changed yesterday. Patient has a Perkins catheter, has y ellow clear urine in it. We will possibly try to remove Perkins catheter tomorrow. Patient reports george ving good bowel movement yesterday. RENÉE/MODL Voice ID: [id number] Report ID: [id number]
[2019-11-11] MEDS: AMLODIPINE 5 MG TAB PO SCH (10:32)
[2019-11-11] MEDS: DOCUSATE NA/SENNA CONC 1 TAB PO SCH (19:43)
[2019-11-11] MEDS: ATORVASTATIN 20 MG TAB PO SCH (19:45)
[2019-11-12] MEDS: TRAMADOL HCL 50 MG TAB PO PRN ×3 (04:13→15:49)
[2019-11-12] MEDS: TAMSULOSIN 0.4 MG SR CAP PO SCH (07:20)
[2019-11-12] MEDS: SERTRALINE HCL 50 MG TAB PO SCH (07:20)
[2019-11-12] MEDS: MAGNESIUM OXIDE 400 MG TAB PO SCH (07:21)
[2019-11-12] MEDS: APIXABAN 2.5 MG TABLET PO SCH ×2 (07:21→20:25)
[2019-11-12] MEDS: GABAPENTIN 100 MG CAP PO SCH ×2 (07:21→20:25)
[2019-11-12] MEDS: JUVEN PACKET PO SCH ×2 (07:22→20:00)
[2019-11-12] MEDS: BENAZEPRIL 20 MG TAB PO SCH (07:23)
[2019-11-12] MEDS: AMLODIPINE 5 MG TAB PO SCH (07:23)
[2019-11-12] MEDS: carvediloL 6.25 MG TAB PO SCH ×2 (08:00→20:25)
[2019-11-12] MEDS: LIDOCAINE 4% PATCH TOP SCH (13:57)
--- NOTE | 2019-11-12 14:25 | FAST ---
ENCOUNTER DATE AND TIME: 11/12/2019 08:00 (CDT) NAME RITA KIRKLAND DATE OF : 1930 DATE OF ADMISSION: 11/08/2019 17:49 (CDT) PHONE: AGE: 89 N# [id number] GENDER: Female ENCOUNTER PHYSICIAN: Dr. Rob Anguiano M.D. ADMISSION DIAGNOSIS: - Orthopaedic Disorders 08 - Unilateral Hip Fracture (08.11) BIPOLAR ARTHOPLASTY. EATING: Not assessed/no information CODE: - ORAL HYGIENE: ORAL HYGIENE - STEP 1: Does the patient complete the activity by him/herself with no assistance (physical, verbal/nonverbal cueing, setup/clean-up)? No. ORAL HYGIENE - STEP 2: Does the patient need only setup/clean-up assistance from one helper? No. ORAL HYGIENE - STEP 3: Does the patient need only verbal/nonverbal cueing or touching/steadying/contact guard assistance fro m one helper? Yes. 1. [id number] ADMISSION PERFORMANCE: Supervision or touching assistance CODE: 04 TOILETING HYGIENE: Not assessed/no information CODE: - BATHING: SHOWER/BATHE SELF - STEP 1: Does the patient complete the activity by him/herself with no assistance (physical, verbal/nonverbal cueing, setup/clean-up)? No. SHOWER/BATHE SELF - STEP 2: Does the patient need only setup/clean-up assistance from one helper? No. SHOWER/BATHE SELF - STEP 3: Does the patient need only verbal/nonverbal cueing or touching/steadying/contact guard assistance fro m one helper? Yes. 1. [id number] ADMISSION PERFORMANCE: Supervision or touching assistance CODE: 04 DRESSING - UPPER BODY: DRESSING - UPPER BODY - STEP 1: Does the patient complete the activity by him/herself with no assistance (physical, verbal/nonverbal cueing, setup/clean-up)? No. DRESSING - UPPER BODY - STEP 2: Does the patient need only setup/clean-up assistance from one helper? No. DRESSING - UPPER BODY - STEP 3: Does the patient need only verbal/nonverbal cueing or touching/steadying/contact guard assistance fro m one helper? Yes. 1. [id number] ADMISSION PERFORMANCE: Supervision or touching assistance CODE: 04 DRESSING - LOWER BODY: DRESSING - LOWER BODY - STEP 1: Does the patient complete the activity by him/herself with no assistance (physical, verbal/nonverbal cueing, setup/clean-up)? No. DRESSING - LOWER BODY - STEP 2: Does the patient need only setup/clean-up assistance from one helper? No. DRESSING - LOWER BODY - STEP 3: Does the patient need only verbal/nonverbal cueing or touching/steadying/contact guard assistance fro m one helper? No. DRESSING - LOWER BODY - STEP 4: Does the patient need physical assistance - for example lifting or trunk support from one helper - wi th the helper providing less than half of the effort? No. DRESSING - LOWER BODY - STEP 5: Does the patient need physical assistance - for example lifting or trunk support from one helper - wi th the helper providing more than half of the effort? Yes. 1. [id number] ADMISSION PERFORMANCE: Substantial/maximal assistance CODE: 02 PUTTING ON/TAKING OFF FOOTWEAR: FOOTWEAR - STEP 1: Does the patient complete the activity by him/herself with no assistance (physical, verbal/nonverbal cueing, setup/clean-up)? No. FOOTWEAR - STEP 2: Does the patient need only setup/clean-up assistance from one helper? No. FOOTWEAR - STEP 3: Does the patient need only verbal/nonverbal cueing or touching/steadying/contact guard assistance fro m one helper? No. FOOTWEAR - STEP 4: Does the patient need physical assistance - for example lifting or trunk support from one helper - wi th the helper providing less than half of the effort? No. FOOTWEAR - STEP 5: Does the patient need physical assistance - for example lifting or trunk support from one helper - wi th the helper providing more than half of the effort? Yes. 1. [id number] ADMISSION PERFORMANCE: Substantial/maximal assistance CODE: 02 DOES THE PATIENT USE A WHEELCHAIR/SCOOTER? CODE: EXPR INDICATE THE TYPE OF WHEELCHAIR/SCOOTER USED: CODE: EXPR INDICATE THE TYPE OF WHEELCHAIR/SCOOTER USED: CODE: EXPR BLADDER AND BOWEL: CODE: EXPR CODE: EXPR SIGNATURE PANEL: The following modified sections: 1. [id number] Admission Performance, 1. [id number] Admission Performance, 1. [id number] Admission Performance, 1. [id number] Admission Performance, 1. [id number] Admission Performance were [electronically] signed by ROXANNE Toledo on TueNov 12 2019 14:24:33 GMT-0500 ([place] Daylight Time)
--- NOTE | 2019-11-12 16:19 | RAD REPORT ---
EXAM DESCRIPTION: RAD - Hip Right 2 View - 11/12/2019 3:55 pm CLINICAL HISTORY: pain COMPARISON: No comparisons FINDINGS: AP and frog-leg views of the right hip were obtained using portable imaging. No dislocation is seen and no gross evidence for fracture. No AVN or focal femoral head abnormality s een. No acute or destructive bony process seen. No joint effusion suspected. Right hemipelvis imaging is considered significantly limited but no gross abnormality is seen. Partially imaged left hip pros thesis seen. IMPRESSION: Negative right hip examination for acute or significant findings. Significantly limited right hemipelvis imaging shows no gross abnormality. Thin section CT imaging of the pelvis/hip joint could be performed if the patient has continued, unex plained symptoms concerning for fracture or pathologic bone process.
--- NOTE | 2019-11-12 18:31 | R.PN ---
ENCOUNTER DATE AND TIME: 11/12/2019 18:17 (CDT) NAME RITA KIRKLAND DATE OF : 1930 DATE OF ADMISSION: 11/08/2019 17:49 (CDT) BIPOLAR ARTHOPLASTYCHIEF COMPLAINT: Left hip fracture s/p biopolar arthroplasty SUBJECTIVE: Pt denied any depression. Pt denied any Shortness of Breath. Ambulated 20' with moderate assistance using a rolling walker. Recalled information with 50% accuracy and moderate assistance. CBC with differential shows a normal WBC and mildly low Hgb of 9.9, prealbu min low at 11.1, glucose 124. UA is normal. VITAL SIGNS Temperature: 97.8 F SBP/DBP: 109/53 Pulse: 65 Resp: 14 MEDICATION ALLERGIES: No Known Drug Allergies (NKDA) ENVIRONMENTAL ALLERGIES: - Substance Allergies None Known - Other Allergies None Known NURSING: - Shower allowing shower - Skin care per protocol PRECAUTIONS: - Anterior Hip Precaution No abduction No active extension No adduction across midline No external rotation No hip flexion >90 degrees No internal rotation - Posterior Hip Precaution No adduction across midline No external rotation No hip flexion >90 degrees No internal rotation No wheel chair propulsion - Weight Bearing Precaution WBAT left LE ACTIVITIES OOB only with supervision THERAPIES: - Dietary and Nutrition Adequate Nutrition. Nutritional Education. Nutritional Supplements. PHYSICAL EXAM - Gen Alert and awake Lying in bed No apparent distress Oriented to: person, time, and place - Skin No skin breakdown. Normacephalic - Eyes No abnormalities - ENMT No abnormalities - Neck No abnormalities - CVS RRR - Chest No abnormalities - Abd Soft - GI Non distended Deferred - No abnormalities - Ext Mild left lower extremity edema. Left hip surgical site has good hemostasis. - MSK 4+/5 weakness in left lower extremity - Neuro 4/5 strength left lower extremity. - Psych No abnormalities ASSESSMENT: Pt. is a 89 yo Right-handed white female.On 11/08/2019 she was admitted to [facility] an d underwent emergency surgery for BIPOLAR ARTHOPLASTY (Unilateral Hip Fracture) by POLI.Pre-morbidly, Pt. was independent/mod-I in Safety Awareness, Balance, Social Cognition, Endurance, Communication, and Self-Care; and she had good Locomotion, Safety Awareness, Balance, Social Cognition, Transfers Co ntrol, Endurance, and Self-Care.Currently, she has deficits of Endurance, Communication, Self-Care, S phincter Control, Transfers Control, and Social Cognition.Pt. is now referred to [facility] for acute in-patient rehabilitation in order to maximize patient's functional independe nce in activities of daily living, strength, ROM, and mobility.- Rehab Goal Patient has realistic goal of being discharged at assistance level 2-maxA to reside at Home with Fam sri/Relatives. MDM/PLAN: - Physical Therapy Decreased range of motion - to improve, our physical therapists will perform initial evaluation of p t's status upon admission and devise an individualized program for increasing patient's Range of Harris on. Gait dysfunction - to improve, our physical therapists will perform initial evaluation of pt's statu s upon admission and devise an individualized program for Gait Training, and Wheel Chair mobility Inability to transfer - to improve, our physical therapists will perform initial evaluation of pt's status upon admission and devise an individualized program for Bed mobility Need for home safety evaluation - to improve, our physical therapists will perform initial evaluatio n of pt's status upon admission and devise an individualized program for Home Evaluation Need in caregiver upon discharge - to improve, our physical therapists will perform initial evaluati on of pt's status upon admission and devise an individualized program for Caregiver Training Edema - to improve, our physical therapists will perform initial evaluation of pt's status upon admis vazquez and devise an individualized program for Elevation Training, and Lymphedema Therapy New precaution - to improve, our physical therapists will perform initial evaluation of pt's status upon admission and devise an individualized program for Patient precaution education Poor endurance - to improve, our physical therapists will perform initial evaluation of pt's status upon admission and devise an individualized program for Endurance Training Weakness - to improve, our physical therapists will perform initial evaluation of pt's status upon a dmission and devise an individualized program for Aquatic Therapy, Neuromuscular Reeducation, and Str engthening Achieving independence - to improve, our physical therapists will perform initial evaluation of pt's status upon admission and devise an individualized program for Community Reintegration Activities - Occupational Therapy ADL deficits - to improve, our occupation therapists will perform initial evaluation of pt's status upon admission and devise an individualized program for Bathing, Bed mobility, Community Reintegratio n, Cooking, Dressing, Eating, Fine Motor Skills, Grooming, Homemaking, Kitchen Mobility, Laundry, Pat ient Education, Safety Awareness, Splinting - Positioning, Transfers(Toilet, Tub, Shower), and Wheel Chair Management Cognitive deficits - to improve, our occupation therapists will perform initial evaluation of pt's s tatus upon admission and devise an individualized program for Cognition - orientation Need for home health care respiratory therapist - to improve, our occupation therapists will perform initial evaluation of pt's status upon admission and devise an individualized program for Caregiver Training Weakness - to improve, our occupation therapists will perform initial evaluation of pt's status upon admission and devise an individualized program for Aquatic Therapy, Balance, Endurance, UE ROM, and UE strengthening - Other See attached MAR (Medication Administration Record) - Anterior Hip Precaution No abduction No active extension No adduction across midline No external rotation No hip flexion >90 degrees No internal rotation - Diet - Liquid Texture Continue Regular - Tube Feed Continue N/A - Diet Type Continue Regular - Posterior Hip Precaution No adduction across midline No external rotation No hip flexion >90 degrees No internal rotation No wheel chair propulsion - Weight Bearing Precaution WBAT left LE - Skin care per protocol - Diet - Solid Texture Continue Regular - Shower allowing shower FUNCTIONAL STATUS: UPDATED AT WEEKLY TEAM CONFERENCE - Bladder Same accident frequency: 7-Ind - No accidents in the past 7 days - Bowel Same accident frequency: 7-Ind - No accidents in the past 7 days - Walking Same score based on distance walked: 0(N/A) Same score based on distance walked: 1(<=50ft) - Wheelchair Same score based on distance traveled: 0(N/A) FUNCTIONAL STATUS: - Self-Care A. Eating Ind B. Grooming Kody C. Bathing sup D. Dressing - Upper sup E. Dressing - Lower modA F. Toileting Loi - Sphincter Control G. Bladder control sup H. Bowel control Kody - Transfers Control I. Bed/Chair/Wheelchair sup J. Toilet sup K. Tub/Shower sup - Locomotion L. Walk/Wheelchair (B) modA M. Stairs ADNO - Communication N. Comprehension (B) sup O. Expression (B) modA - Social Cognition P. Social Interaction Lio Q. Problem Solving Lio R. Memory modA - Endurance Fair - Balance Fair - Safety Awareness Fair QI SCORES: - Self-Care A. Eating 06-Independent B. Oral hygiene 03-Partial/moderate assistance C. Toileting hygiene 02-Substantial/maximal assistance E. Shower/bathe self 02-Substantial/maximal assistance F. Upper body dressing 03-Partial/moderate assistance G. Lower body dressing 88-Not attempted due to medical condition or safety concerns H. Putting on/taking off footwear 88-Not attempted due to medical condition or safety concerns - Mobility B. Sit to lying 02-Substantial/maximal assistance C. Lying to sitting on side of bed 02-Substantial/maximal assistance D. Sit to stand 02-Substantial/maximal assistance E. Chair/hea-xo-rnzsu transfer 02-Substantial/maximal assistance F. Toilet transfer 02-Substantial/maximal assistance G. Car transfer 88-Not attempted due to medical condition or safety concerns I. Walk 10 feet 02-Substantial/maximal assistance J. Walk 50 feet with two turns 88-Not attempted due to medical condition or safety concerns K. Walk 150 feet 88-Not attempted due to medical condition or safety concerns L. Walking 10 feet on uneven surfaces 88-Not attempted due to medical condition or safety concerns M. 1 step (curb) 88-Not attempted due to medical condition or safety concerns N. 4 steps 88-Not attempted due to medical condition or safety concerns O. 12 steps 88-Not attempted due to medical condition or safety concerns P. Picking up object 06-Independent R. Wheel 50 feet with two turns 88-Not attempted due to medical condition or safety concerns S. Wheel 150 feet 88-Not attempted due to medical condition or safety concerns - Bladder and Bowel Bladder continence 0-Always continent Bowel continence 0-Always continent - Endurance Fair - Balance Fair - Safety Awareness Fair [facility] DEFICITS: Mobility, Endurance, Balance, Safety Awareness, and Self-Care SIGNATURE PANEL: (CDT)
[2019-11-12] MEDS: ATORVASTATIN 20 MG TAB PO SCH (20:25)
[2019-11-12] MEDS: DOCUSATE NA/SENNA CONC 1 TAB PO SCH (20:26)
--- NOTE | 2019-11-12 20:47 | PN ---
Date of Progress Note: 11/12/2019 Subjective: Patient was seen this morning for followup. No new complaints or problems reported by bahman taylor. She was lying in bed. Her was with her at bedside. Objective: Vital Signs: Reviewed. HEENT: Unremarkable. Lungs: Clear to auscultation. Heart: Sounds normal. Abdomen: Soft. Bowel sounds normal. No guarding, rigidity, tenderness, or distention. Extremities: No leg edema. Impression: 1.Hip fracture. 2.Hypertension. 3.Anemia. 4.Hyperlipidemia. Plan: We will continue current medications. Continue current DVT prophylaxis and chronic anticoagul ation therapy, which is Eliquis. Her blood pressure has been running on the lower side and we will h old her antihypertensive medication if systolic blood pressure less than 130, which is her amlodipine , benazepril, and carvedilol. Continue physical therapy under guidance of Dr. Anguiano. I will see her tomorrow for followup. RENÉE/MODL Voice ID: [id number] Report ID: [id number]
[2019-11-13] MEDS: TRAMADOL HCL 50 MG TAB PO PRN ×2 (01:27→08:43)
[2019-11-13] MEDS: carvediloL 6.25 MG TAB PO SCH ×2 (08:00→19:54)
[2019-11-13] MEDS: MAGNESIUM OXIDE 400 MG TAB PO SCH (08:00)
[2019-11-13] MEDS: JUVEN PACKET PO SCH (08:00)
[2019-11-13] MEDS: LIDOCAINE 4% PATCH TOP SCH (08:41)
[2019-11-13] MEDS: APIXABAN 2.5 MG TABLET PO SCH ×2 (08:41→20:05)
[2019-11-13] MEDS: BENAZEPRIL 20 MG TAB PO SCH (08:41)
[2019-11-13] MEDS: AMLODIPINE 5 MG TAB PO SCH (08:42)
[2019-11-13] MEDS: SERTRALINE HCL 50 MG TAB PO SCH (08:42)
[2019-11-13] MEDS: GABAPENTIN 100 MG CAP PO SCH ×2 (08:43→20:05)
[2019-11-13] MEDS: TAMSULOSIN 0.4 MG SR CAP PO SCH (08:43)
[2019-11-13] MEDS ORDERED: CALCIUM CARBONATE CHEW 500MG TAB PO PRN (14:27)
--- NOTE | 2019-11-13 15:31 | FAST ---
SHIFT START DATE/TIME: 11/13/2019 07:00 (CDT) SHIFT END DATE/TIME: 11/13/2019 19:00 (CDT) NAME RITA KIRKLAND DATE OF : 1930 DATE OF ADMISSION: 11/08/2019 17:49 (CDT) PHONE: AGE: 89 N# [id number] GENDER: Female ENCOUNTER PHYSICIAN: Dr. Rob Anguiano M.D. ADMISSION DIAGNOSIS: - Orthopaedic Disorders 08 - Unilateral Hip Fracture (08.11) BIPOLAR ARTHOPLASTY. EATING: EATING - STEP 1: Does the patient complete the activity by him/herself with no assistance (physical, verbal/nonverbal cueing, setup/clean-up)? No. EATING - STEP 2: Does the patient need only setup/clean-up assistance from one helper? No. EATING - STEP 3: Does the patient need only verbal/nonverbal cueing or touching/steadying/contact guard assistance fro m one helper? Yes. 1. [id number] ADMISSION PERFORMANCE: Supervision or touching assistance CODE: 04 ORAL HYGIENE: ORAL HYGIENE - STEP 1: Does the patient complete the activity by him/herself with no assistance (physical, verbal/nonverbal cueing, setup/clean-up)? No. ORAL HYGIENE - STEP 2: Does the patient need only setup/clean-up assistance from one helper? Yes. 1. [id number] ADMISSION PERFORMANCE: Setup or clean-up assistance CODE: 05 TOILETING HYGIENE: TOILETING HYGIENE - STEP 1: Does the patient complete the activity by him/herself with no assistance (physical, verbal/nonverbal cueing, setup/clean-up)? No. TOILETING HYGIENE - STEP 2: Does the patient need only setup/clean-up assistance from one helper? No. TOILETING HYGIENE - STEP 3: Does the patient need only verbal/nonverbal cueing or touching/steadying/contact guard assistance fro m one helper? No. TOILETING HYGIENE - STEP 4: Does the patient need physical assistance - for example lifting or trunk support from one helper - wi th the helper providing less than half of the effort? Yes. 1. [id number] ADMISSION PERFORMANCE: Partial/moderate assistance CODE: 03 BATHING: Not assessed/no information CODE: - DRESSING - UPPER BODY: DRESSING - UPPER BODY - STEP 1: Does the patient complete the activity by him/herself with no assistance (physical, verbal/nonverbal cueing, setup/clean-up)? No. DRESSING - UPPER BODY - STEP 2: Does the patient need only setup/clean-up assistance from one helper? No. DRESSING - UPPER BODY - STEP 3: Does the patient need only verbal/nonverbal cueing or touching/steadying/contact guard assistance fro m one helper? No. DRESSING - UPPER BODY - STEP 4: Does the patient need physical assistance - for example lifting or trunk support from one helper - wi th the helper providing less than half of the effort? Yes. 1. [id number] ADMISSION PERFORMANCE: Partial/moderate assistance CODE: 03 DRESSING - LOWER BODY: DRESSING - LOWER BODY - STEP 1: Does the patient complete the activity by him/herself with no assistance (physical, verbal/nonverbal cueing, setup/clean-up)? No. DRESSING - LOWER BODY - STEP 2: Does the patient need only setup/clean-up assistance from one helper? No. DRESSING - LOWER BODY - STEP 3: Does the patient need only verbal/nonverbal cueing or touching/steadying/contact guard assistance fro m one helper? No. DRESSING - LOWER BODY - STEP 4: Does the patient need physical assistance - for example lifting or trunk support from one helper - wi th the helper providing less than half of the effort? Yes. 1. [id number] ADMISSION PERFORMANCE: Partial/moderate assistance CODE: 03 PUTTING ON/TAKING OFF FOOTWEAR: FOOTWEAR - STEP 1: Does the patient complete the activity by him/herself with no assistance (physical, verbal/nonverbal cueing, setup/clean-up)? No. FOOTWEAR - STEP 2: Does the patient need only setup/clean-up assistance from one helper? No. FOOTWEAR - STEP 3: Does the patient need only verbal/nonverbal cueing or touching/steadying/contact guard assistance fro m one helper? No. FOOTWEAR - STEP 4: Does the patient need physical assistance - for example lifting or trunk support from one helper - wi th the helper providing less than half of the effort? No. FOOTWEAR - STEP 5: Does the patient need physical assistance - for example lifting or trunk support from one helper - wi th the helper providing more than half of the effort? Yes. 1. [id number] ADMISSION PERFORMANCE: Substantial/maximal assistance CODE: 02 DOES THE PATIENT USE A WHEELCHAIR/SCOOTER? CODE: EXPR INDICATE THE TYPE OF WHEELCHAIR/SCOOTER USED: CODE: EXPR INDICATE THE TYPE OF WHEELCHAIR/SCOOTER USED: CODE: EXPR BLADDER AND BOWEL: H350. BLADDER CONTINENCE (3-DAY ASSESSMENT PERIOD): Not applicable (e.g., indwelling catheter) CODE: 9 H400. BOWEL CONTINENCE (3-DAY ASSESSMENT PERIOD): Always incontinent (no episodes of continent bowel movements) CODE: 3 SIGNATURE PANEL: The following modified sections: 1. [id number] Admission Performance, 1. [id number] Admission Performance, 1. [id number] Admission Performance, 1. [id number] Admission Performance, 1. [id number] Admission Performance, 1. [id number] Admission Performance, 1. CO0847s Admission Performance, 1. [id number] Admission Performance , 1. [id number] Admission Performance, H350. Bladder Continence (3-day assessment period), H400. Bowel C ontinence (3-day assessment period) were [electronically] signed by Leesa LiNPrasanth on TueOct [id number] 15:30:17 GMT-0500 (Central Daylight Time)
--- NOTE | 2019-11-13 17:46 | R.PN ---
ENCOUNTER DATE AND TIME: 11/13/2019 17:43 (CDT) NAME RITA KIRKLAND DATE OF : 1930 DATE OF ADMISSION: 11/08/2019 17:49 (CDT) BIPOLAR ARTHOPLASTYCHIEF COMPLAINT: Left hip fracture s/p biopolar arthroplasty SUBJECTIVE: Pt denied any depression. Pt denied any Shortness of Breath. Ambulated 25' with moderate assistance using a rolling walker. Recalled information with 50% accuracy and moderate assistance. CBC with differential shows a normal WBC and mildly low Hgb of 9.9, prealbu min low at 11.1, glucose 124. UA is normal. VITAL SIGNS Temperature: 97.8 F SBP/DBP: 117/68 Pulse: 68 Resp: 16 MEDICATION ALLERGIES: No Known Drug Allergies (NKDA) ENVIRONMENTAL ALLERGIES: - Substance Allergies None Known - Other Allergies None Known NURSING: - Shower allowing shower - Skin care per protocol PRECAUTIONS: - Anterior Hip Precaution No abduction No active extension No adduction across midline No external rotation No hip flexion >90 degrees No internal rotation - Posterior Hip Precaution No adduction across midline No external rotation No hip flexion >90 degrees No internal rotation No wheel chair propulsion - Weight Bearing Precaution WBAT left LE ACTIVITIES OOB only with supervision THERAPIES: - Dietary and Nutrition Adequate Nutrition. Nutritional Education. Nutritional Supplements. PHYSICAL EXAM - Gen Alert and awake Lying in bed No apparent distress Oriented to: person, time, and place - Skin No skin breakdown. Normacephalic - Eyes No abnormalities - ENMT No abnormalities - Neck No abnormalities - CVS RRR - Chest No abnormalities - Abd Soft - GI Non distended Deferred - No abnormalities - Ext Mild left lower extremity edema. Left hip surgical site has good hemostasis. - MSK 4+/5 weakness in left lower extremity - Neuro 4/5 strength left lower extremity. - Psych No abnormalities ASSESSMENT: Pt. is a 89 yo Right-handed white female.On 11/08/2019 she was admitted to [facility] an d underwent emergency surgery for BIPOLAR ARTHOPLASTY (Unilateral Hip Fracture) by POLI.Pre-morbidly, Pt. was independent/mod-I in Safety Awareness, Balance, Social Cognition, Endurance, Communication, and Self-Care; and she had good Locomotion, Safety Awareness, Balance, Social Cognition, Transfers Co ntrol, Endurance, and Self-Care.Currently, she has deficits of Endurance, Communication, Self-Care, S phincter Control, Transfers Control, and Social Cognition.Pt. is now referred to [facility] for acute in-patient rehabilitation in order to maximize patient's functional independe nce in activities of daily living, strength, ROM, and mobility.- Rehab Goal Patient has realistic goal of being discharged at assistance level 2-maxA to reside at Home with Fam sri/Relatives. MDM/PLAN: - Physical Therapy Decreased range of motion - to improve, our physical therapists will perform initial evaluation of p t's status upon admission and devise an individualized program for increasing patient's Range of Harris on. Gait dysfunction - to improve, our physical therapists will perform initial evaluation of pt's statu s upon admission and devise an individualized program for Gait Training, and Wheel Chair mobility Inability to transfer - to improve, our physical therapists will perform initial evaluation of pt's status upon admission and devise an individualized program for Bed mobility Need for home safety evaluation - to improve, our physical therapists will perform initial evaluatio n of pt's status upon admission and devise an individualized program for Home Evaluation Need in caregiver upon discharge - to improve, our physical therapists will perform initial evaluati on of pt's status upon admission and devise an individualized program for Caregiver Training Edema - to improve, our physical therapists will perform initial evaluation of pt's status upon admi ssion and devise an individualized program for Elevation Training, and Lymphedema Therapy New precaution - to improve, our physical therapists will perform initial evaluation of pt's status upon admission and devise an individualized program for Patient precaution education Poor endurance - to improve, our physical therapists will perform initial evaluation of pt's status upon admission and devise an individualized program for Endurance Training Weakness - to improve, our physical therapists will perform initial evaluation of pt's status upon a dmission and devise an individualized program for Aquatic Therapy, Neuromuscular Reeducation, and Str engthening Achieving independence - to improve, our physical therapists will perform initial evaluation of pt's status upon admission and devise an individualized program for Community Reintegration Activities - Occupational Therapy ADL deficits - to improve, our occupation therapists will perform initial evaluation of pt's status upon admission and devise an individualized program for Bathing, Bed mobility, Community Reintegratio n, Cooking, Dressing, Eating, Fine Motor Skills, Grooming, Homemaking, Kitchen Mobility, Laundry, Pat ient Education, Safety Awareness, Splinting - Positioning, Transfers(Toilet, Tub, Shower), and Wheel Chair Management Cognitive deficits - to improve, our occupation therapists will perform initial evaluation of pt's s tatus upon admission and devise an individualized program for Cognition - orientation Need for intensive care unit nurse - to improve, our occupation therapists will perform initial evaluation of pt's status upon admission and devise an individualized program for Caregiver Training Weakness - to improve, our occupation therapists will perform initial evaluation of pt's status upon admission and devise an individualized program for Aquatic Therapy, Balance, Endurance, UE ROM, and UE strengthening - Other See attached MAR (Medication Administration Record) - Anterior Hip Precaution No abduction No active extension No adduction across midline No external rotation No hip flexion >90 degrees No internal rotation - Diet - Liquid Texture Continue Regular - Tube Feed Continue N/A - Diet Type Continue Regular - Posterior Hip Precaution No adduction across midline No external rotation No hip flexion >90 degrees No internal rotation No wheel chair propulsion - Weight Bearing Precaution WBAT left LE - Skin care per protocol - Diet - Solid Texture Continue Regular - Shower allowing shower FUNCTIONAL STATUS: UPDATED AT WEEKLY TEAM CONFERENCE - Bladder Same accident frequency: 7-Ind - No accidents in the past 7 days - Bowel Same accident frequency: 7-Ind - No accidents in the past 7 days - Walking Same score based on distance walked: 0(N/A) Same score based on distance walked: 1(<=50ft) - Wheelchair Same score based on distance traveled: 0(N/A) FUNCTIONAL STATUS: - Self-Care A. Eating Ind B. Grooming Kody C. Bathing sup D. Dressing - Upper sup E. Dressing - Lower modA F. Toileting Lio - Sphincter Control G. Bladder control sup H. Bowel control Kody - Transfers Control I. Bed/Chair/Wheelchair sup J. Toilet sup K. Tub/Shower sup - Locomotion L. Walk/Wheelchair (B) modA M. Stairs ADNO - Communication N. Comprehension (B) sup O. Expression (B) modA - Social Cognition P. Social Interaction Lio Q. Problem Solving Lio R. Memory modA - Endurance Fair - Balance Fair - Safety Awareness Fair QI SCORES: - Self-Care A. Eating 06-Independent B. Oral hygiene 03-Partial/moderate assistance C. Toileting hygiene 02-Substantial/maximal assistance E. Shower/bathe self 02-Substantial/maximal assistance F. Upper body dressing 03-Partial/moderate assistance G. Lower body dressing 88-Not attempted due to medical condition or safety concerns H. Putting on/taking off footwear 88-Not attempted due to medical condition or safety concerns - Mobility B. Sit to lying 02-Substantial/maximal assistance C. Lying to sitting on side of bed 02-Substantial/maximal assistance D. Sit to stand 02-Substantial/maximal assistance E. Chair/xsp-gj-[id number] transfer 02-Substantial/maximal assistance F. Toilet transfer 02-Substantial/maximal assistance G. Car transfer 88-Not attempted due to medical condition or safety concerns I. Walk 10 feet 02-Substantial/maximal assistance J. Walk 50 feet with two turns 88-Not attempted due to medical condition or safety concerns K. Walk 150 feet 88-Not attempted due to medical condition or safety concerns L. Walking 10 feet on uneven surfaces 88-Not attempted due to medical condition or safety concerns M. 1 step (curb) 88-Not attempted due to medical condition or safety concerns N. 4 steps 88-Not attempted due to medical condition or safety concerns O. 12 steps 88-Not attempted due to medical condition or safety concerns P. Picking up object 06-Independent R. Wheel 50 feet with two turns 88-Not attempted due to medical condition or safety concerns S. Wheel 150 feet 88-Not attempted due to medical condition or safety concerns - Bladder and Bowel Bladder continence 0-Always continent Bowel continence 0-Always continent - Endurance Fair - Balance Fair - Safety Awareness Fair [facility] DEFICITS: Mobility, Endurance, Balance, Safety Awareness, and Self-Care SIGNATURE PANEL: (CDT)
[2019-11-13] MEDS: PROMOD 30 ML DOSE PO SCH (20:00)
[2019-11-13] MEDS: ATORVASTATIN 20 MG TAB PO SCH (20:05)
[2019-11-13] MEDS: DOCUSATE NA/SENNA CONC 1 TAB PO SCH (20:05)
[2019-11-14] MEDS: TRAMADOL HCL 50 MG TAB PO PRN (05:01)
[2019-11-14] MEDS: AMLODIPINE 5 MG TAB PO SCH (08:00)
[2019-11-14] MEDS: PROMOD 30 ML DOSE PO SCH ×2 (08:00→20:00)
[2019-11-14] MEDS: carvediloL 6.25 MG TAB PO SCH ×2 (08:00→21:33)
[2019-11-14] MEDS: BENAZEPRIL 20 MG TAB PO SCH (08:00)
[2019-11-14] MEDS ORDERED: MAGNESIUM HYDROXIDE 8% 30 ML PO PRN (08:01)
--- NOTE | 2019-11-14 08:16 | PN ---
Date of Progress Note: 11/13/2019 Subjective: Patient was seen this morning for followup. No new complaints or problems reported by bahman taylor. She was lying in bed. Her was with her at bedside. She ended up having urinary ret ention after Perkins catheter was removed and during nighttime she almost had 1000 cc of urine after bl adder scan and that much or more urine output was seen after the catheter was placed. She denies any abdominal pain, nausea, vomiting. Objective: Vital Signs: Reviewed. HEENT: Examination unremarkable. Lungs: Clear to auscultation. Heart: Sounds normal. Abdomen: Soft. Bowel sounds normal. No guarding, rigidity, tenderness or distention. Extremities: No leg edema. Impression: 1.Urinary retention. 2.Hip fracture. 3.Anemia due to acute blood loss. 4.Hypertension. Plan: We will go ahead and continue Perkins catheter. Continue tamsulosin. Follow up with Dr. Chappell and consultation was requested and continue other current medications. I will see her tomorrow for rachel maldonado. RENÉE/MODL Voice ID: [id number] Report ID: [id number]
[2019-11-14] MEDS: LIDOCAINE 4% PATCH TOP SCH (08:44)
[2019-11-14] MEDS: APIXABAN 2.5 MG TABLET PO SCH ×2 (08:46→21:33)
[2019-11-14] MEDS: MAGNESIUM OXIDE 400 MG TAB PO SCH (08:46)
[2019-11-14] MEDS: GABAPENTIN 100 MG CAP PO SCH ×2 (08:46→21:33)
[2019-11-14] MEDS: TAMSULOSIN 0.4 MG SR CAP PO SCH (08:49)
[2019-11-14] MEDS: ACETAMINOPHEN 500 MG TAB PO PRN (08:49)
[2019-11-14] MEDS: SERTRALINE HCL 50 MG TAB PO SCH (08:51)
[2019-11-14] MEDS ORDERED: BISACODYL 10 MG RECTAL SUPP PR PRN (15:13)
--- NOTE | 2019-11-14 15:24 | FAST ---
ENCOUNTER DATE AND TIME: 11/14/2019 08:00 (CDT) NAME RITA KIRKLAND DATE OF : 1930 DATE OF ADMISSION: 11/08/2019 17:49 (CDT) PHONE: AGE: 89 N# [id number] GENDER: Female ENCOUNTER PHYSICIAN: Dr. Rob Anguiano M.D. ADMISSION DIAGNOSIS: - Orthopaedic Disorders 08 - Unilateral Hip Fracture (08.11) BIPOLAR ARTHOPLASTY. EATING: Not assessed/no information CODE: - ORAL HYGIENE: ORAL HYGIENE - STEP 1: Does the patient complete the activity by him/herself with no assistance (physical, verbal/nonverbal cueing, setup/clean-up)? No. ORAL HYGIENE - STEP 2: Does the patient need only setup/clean-up assistance from one helper? No. ORAL HYGIENE - STEP 3: Does the patient need only verbal/nonverbal cueing or touching/steadying/contact guard assistance fro m one helper? Yes. 1. [id number] ADMISSION PERFORMANCE: Supervision or touching assistance CODE: 04 TOILETING HYGIENE: Not assessed/no information CODE: - BATHING: SHOWER/BATHE SELF - STEP 1: Does the patient complete the activity by him/herself with no assistance (physical, verbal/nonverbal cueing, setup/clean-up)? No. SHOWER/BATHE SELF - STEP 2: Does the patient need only setup/clean-up assistance from one helper? No. SHOWER/BATHE SELF - STEP 3: Does the patient need only verbal/nonverbal cueing or touching/steadying/contact guard assistance fro m one helper? Yes. 1. [id number] ADMISSION PERFORMANCE: Supervision or touching assistance CODE: 04 DRESSING - UPPER BODY: DRESSING - UPPER BODY - STEP 1: Does the patient complete the activity by him/herself with no assistance (physical, verbal/nonverbal cueing, setup/clean-up)? No. DRESSING - UPPER BODY - STEP 2: Does the patient need only setup/clean-up assistance from one helper? No. DRESSING - UPPER BODY - STEP 3: Does the patient need only verbal/nonverbal cueing or touching/steadying/contact guard assistance fro m one helper? Yes. 1. [id number] ADMISSION PERFORMANCE: Supervision or touching assistance CODE: 04 DRESSING - LOWER BODY: DRESSING - LOWER BODY - STEP 1: Does the patient complete the activity by him/herself with no assistance (physical, verbal/nonverbal cueing, setup/clean-up)? No. DRESSING - LOWER BODY - STEP 2: Does the patient need only setup/clean-up assistance from one helper? No. DRESSING - LOWER BODY - STEP 3: Does the patient need only verbal/nonverbal cueing or touching/steadying/contact guard assistance fro m one helper? No. DRESSING - LOWER BODY - STEP 4: Does the patient need physical assistance - for example lifting or trunk support from one helper - wi th the helper providing less than half of the effort? No. DRESSING - LOWER BODY - STEP 5: Does the patient need physical assistance - for example lifting or trunk support from one helper - wi th the helper providing more than half of the effort? Yes. 1. [id number] ADMISSION PERFORMANCE: Substantial/maximal assistance CODE: 02 PUTTING ON/TAKING OFF FOOTWEAR: FOOTWEAR - STEP 1: Does the patient complete the activity by him/herself with no assistance (physical, verbal/nonverbal cueing, setup/clean-up)? No. FOOTWEAR - STEP 2: Does the patient need only setup/clean-up assistance from one helper? No. FOOTWEAR - STEP 3: Does the patient need only verbal/nonverbal cueing or touching/steadying/contact guard assistance fro m one helper? No. FOOTWEAR - STEP 4: Does the patient need physical assistance - for example lifting or trunk support from one helper - wi th the helper providing less than half of the effort? Yes. 1. [id number] ADMISSION PERFORMANCE: Partial/moderate assistance CODE: 03 DOES THE PATIENT USE A WHEELCHAIR/SCOOTER? CODE: EXPR INDICATE THE TYPE OF WHEELCHAIR/SCOOTER USED: CODE: EXPR INDICATE THE TYPE OF WHEELCHAIR/SCOOTER USED: CODE: EXPR BLADDER AND BOWEL: CODE: EXPR CODE: EXPR SIGNATURE PANEL: The following modified sections: 1. [id number] Admission Performance, 1. [id number] Admission Performance, 1. [id number] Admission Performance, 1. [id number] Admission Performance, 1. [id number] Admission Performance were [electronically] signed by ROXANNE Toledo on TueNov 14 2019 15:24:16 GMT-0500 (Central Daylight Time)
--- NOTE | 2019-11-14 18:14 | R.PN ---
ENCOUNTER DATE AND TIME: 11/14/2019 18:10 (CDT) NAME RITA KIRKLAND DATE OF : 1930 DATE OF ADMISSION: 11/08/2019 17:49 (CDT) BIPOLAR ARTHOPLASTYCHIEF COMPLAINT: Left hip fracture s/p biopolar arthroplasty SUBJECTIVE: Pt denied any depression. Pt denied any Shortness of Breath. Ambulated 60' with moderate assistance using a rolling walker. Recalled information with 50% accuracy and moderate assistance. CBC with differential shows a normal WBC and mildly low Hgb of 9.9, prealbu min low at 11.1, glucose 124. UA is normal. Mobilized using a wheelchair with moderate assistance. VITAL SIGNS Temperature: 97.8 F SBP/DBP: 119/56 Pulse: 69 Resp: 16 MEDICATION ALLERGIES: No Known Drug Allergies (NKDA) ENVIRONMENTAL ALLERGIES: - Substance Allergies None Known - Other Allergies None Known NURSING: - Shower allowing shower - Skin care per protocol PRECAUTIONS: - Anterior Hip Precaution No abduction No active extension No adduction across midline No external rotation No hip flexion >90 degrees No internal rotation - Posterior Hip Precaution No adduction across midline No external rotation No hip flexion >90 degrees No internal rotation No wheel chair propulsion - Weight Bearing Precaution WBAT left LE ACTIVITIES OOB only with supervision THERAPIES: - Dietary and Nutrition Adequate Nutrition. Nutritional Education. Nutritional Supplements. PHYSICAL EXAM - Gen Alert and awake Lying in bed No apparent distress Oriented to: person, time, and place - Skin No skin breakdown. Normacephalic - Eyes No abnormalities - ENMT No abnormalities - Neck No abnormalities - CVS RRR - Chest No abnormalities - Abd Soft - GI Non distended Deferred - No abnormalities - Ext Mild left lower extremity edema. Left hip surgical site has good hemostasis. - MSK 4+/5 weakness in left lower extremity - Neuro 4/5 strength left lower extremity. - Psych No abnormalities ASSESSMENT: Pt. is a 89 yo Right-handed white female.On 11/08/2019 she was admitted to [facility] an d underwent emergency surgery for BIPOLAR ARTHOPLASTY (Unilateral Hip Fracture) by POLI.Pre-morbidly, Pt. was independent/mod-I in Safety Awareness, Balance, Social Cognition, Endurance, Communication, and Self-Care; and she had good Locomotion, Safety Awareness, Balance, Social Cognition, Transfers Co ntrol, Endurance, and Self-Care.Currently, she has deficits of Endurance, Communication, Self-Care, S phincter Control, Transfers Control, and Social Cognition.Pt. is now referred to [facility] for acute in-patient rehabilitation in order to maximize patient's functional independe nce in activities of daily living, strength, ROM, and mobility.- Rehab Goal Patient has realistic goal of being discharged at assistance level 2-maxA to reside at Home with Fam sri/Relatives. MDM/PLAN: - Physical Therapy Decreased range of motion - to improve, our physical therapists will perform initial evaluation of p t's status upon admission and devise an individualized program for increasing patient's Range of Harris on. Gait dysfunction - to improve, our physical therapists will perform initial evaluation of pt's statu s upon admission and devise an individualized program for Gait Training, and Wheel Chair mobility Inability to transfer - to improve, our physical therapists will perform initial evaluation of pt's status upon admission and devise an individualized program for Bed mobility Need for home safety evaluation - to improve, our physical therapists will perform initial evaluatio n of pt's status upon admission and devise an individualized program for Home Evaluation Need in caregiver upon discharge - to improve, our physical therapists will perform initial evaluati on of pt's status upon admission and devise an individualized program for Caregiver Training Edema - to improve, our physical therapists will perform initial evaluation of pt's status upon admi ssion and devise an individualized program for Elevation Training, and Lymphedema Therapy New precaution - to improve, our physical therapists will perform initial evaluation of pt's status upon admission and devise an individualized program for Patient precaution education Poor endurance - to improve, our physical therapists will perform initial evaluation of pt's status upon admission and devise an individualized program for Endurance Training Weakness - to improve, our physical therapists will perform initial evaluation of pt's status upon a dmission and devise an individualized program for Aquatic Therapy, Neuromuscular Reeducation, and Str engthening Achieving independence - to improve, our physical therapists will perform initial evaluation of pt's status upon admission and devise an individualized program for Community Reintegration Activities - Occupational Therapy ADL deficits - to improve, our occupation therapists will perform initial evaluation of pt's status upon admission and devise an individualized program for Bathing, Bed mobility, Community Reintegratio n, Cooking, Dressing, Eating, Fine Motor Skills, Grooming, Homemaking, Kitchen Mobility, Laundry, Pat ient Education, Safety Awareness, Splinting - Positioning, Transfers(Toilet, Tub, Shower), and Wheel Chair Management Cognitive deficits - to improve, our occupation therapists will perform initial evaluation of pt's s tatus upon admission and devise an individualized program for Cognition - orientation Need for certified social workers in health care - to improve, our occupation therapists will perform initial evaluation of pt's status upon admission and devise an individualized program for Caregiver Training Weakness - to improve, our occupation therapists will perform initial evaluation of pt's status upon admission and devise an individualized program for Aquatic Therapy, Balance, Endurance, UE ROM, and UE strengthening - Other See attached MAR (Medication Administration Record) - Anterior Hip Precaution No abduction No active extension No adduction across midline No external rotation No hip flexion >90 degrees No internal rotation - Diet - Liquid Texture Continue Regular - Tube Feed Continue N/A - Diet Type Continue Regular - Posterior Hip Precaution No adduction across midline No external rotation No hip flexion >90 degrees No internal rotation No wheel chair propulsion - Weight Bearing Precaution WBAT left LE - Skin care per protocol - Diet - Solid Texture Continue Regular - Shower allowing shower FUNCTIONAL STATUS: UPDATED AT WEEKLY TEAM CONFERENCE - Bladder Same accident frequency: 7-Ind - No accidents in the past 7 days - Bowel Same accident frequency: 7-Ind - No accidents in the past 7 days - Walking Same score based on distance walked: 0(N/A) Same score based on distance walked: 1(<=50ft) - Wheelchair Same score based on distance traveled: 0(N/A) FUNCTIONAL STATUS: - Self-Care A. Eating Ind B. Grooming Kody C. Bathing sup D. Dressing - Upper sup E. Dressing - Lower modA F. Toileting Lio - Sphincter Control G. Bladder control sup H. Bowel control Kody - Transfers Control I. Bed/Chair/Wheelchair sup J. Toilet sup K. Tub/Shower sup - Locomotion L. Walk/Wheelchair (B) modA M. Stairs ADNO - Communication N. Comprehension (B) sup O. Expression (B) modA - Social Cognition P. Social Interaction Lio Q. Problem Solving Lio R. Memory modA - Endurance Fair - Balance Fair - Safety Awareness Fair QI SCORES: - Self-Care A. Eating 06-Independent B. Oral hygiene 03-Partial/moderate assistance C. Toileting hygiene 02-Substantial/maximal assistance E. Shower/bathe self 02-Substantial/maximal assistance F. Upper body dressing 03-Partial/moderate assistance G. Lower body dressing 88-Not attempted due to medical condition or safety concerns H. Putting on/taking off footwear 88-Not attempted due to medical condition or safety concerns - Mobility B. Sit to lying 02-Substantial/maximal assistance C. Lying to sitting on side of bed 02-Substantial/maximal assistance D. Sit to stand 02-Substantial/maximal assistance E. Chair/zfi-ly-[id number] transfer 02-Substantial/maximal assistance F. Toilet transfer 02-Substantial/maximal assistance G. Car transfer 88-Not attempted due to medical condition or safety concerns I. Walk 10 feet 02-Substantial/maximal assistance J. Walk 50 feet with two turns 88-Not attempted due to medical condition or safety concerns K. Walk 150 feet 88-Not attempted due to medical condition or safety concerns L. Walking 10 feet on uneven surfaces 88-Not attempted due to medical condition or safety concerns M. 1 step (curb) 88-Not attempted due to medical condition or safety concerns N. 4 steps 88-Not attempted due to medical condition or safety concerns O. 12 steps 88-Not attempted due to medical condition or safety concerns P. Picking up object 06-Independent R. Wheel 50 feet with two turns 88-Not attempted due to medical condition or safety concerns S. Wheel 150 feet 88-Not attempted due to medical condition or safety concerns - Bladder and Bowel Bladder continence 0-Always continent Bowel continence 0-Always continent - Endurance Fair - Balance Fair - Safety Awareness Fair [facility] DEFICITS: Mobility, Endurance, Balance, Safety Awareness, and Self-Care SIGNATURE PANEL: (CDT)
--- NOTE | 2019-11-14 21:27 | PN ---
Date of Progress Note: 11/14/2019 Subjective: The patient was seen this morning for followup. Her was with her at bedside. Objective: Vital Signs: Reviewed. HEENT: Unremarkable. Lungs: Clear to auscultation. Heart: Sounds normal. Abdomen: Soft. Bowel sounds normal. No guarding, rigidity, tenderness, or d istention. Extremities: No leg edema. Impression: 1.Hip fracture. 2.Anemia due to acute blood loss. 3.Hypertension. 4.Urinary retention. Plan: Dr. Chappell was consulted yesterday. He has started bladder training program. We will continue that. Continue tamsulosin. Continue current antihypertensive medication and anticoagulation therap y. RENÉE/MODL Voice ID: [id number] Report ID: [id number]
[2019-11-14] MEDS: ATORVASTATIN 20 MG TAB PO SCH (21:32)
[2019-11-14] MEDS: DOCUSATE NA/SENNA CONC 1 TAB PO SCH (21:33)
[2019-11-15 07:06] LABS: Absolute Lymphocytes (CBC) 1.4 K/uL (0.7-4.9); Basophils % 0.6 % (0-1.3); Hematocrit 29.5 % (36.0-45.0); Lymphocytes % 12.4 % (15.3-44.8); MPV 9.1 fL (7.6-11.3); RBC Red Blood Cell Count 3.36 M/uL (3.86-4.86)
[2019-11-15 07:44] LABS: ALT/SGPT 46 U/L (12-78); AST/SGOT 34 U/L (15-37); Albumin 2.5 g/dL (3.4-5.0); Alkaline Phosphatase 60 U/L (45-117); BUN Blood Urea Nitrogen 15 mg/dL (7-18); Bicarbonate 27 mmol/L (21-32); Bilirubin Total 0.6 mg/dL (0.2-1.0); Glucose Level 112 mg/dL (74-106); Magnesium 2.4 mg/dL (1.8-2.4); Potassium 4.4 mmol/L (3.5-5.1); Prealbumin 11.5 mg/dL (20-40); Sodium Level 142 mmol/L (136-145)
[2019-11-15] MEDS: PROMOD 30 ML DOSE PO SCH ×2 (08:00→20:00)
[2019-11-15] MEDS: TAMSULOSIN 0.4 MG SR CAP PO SCH (08:46)
[2019-11-15] MEDS: BENAZEPRIL 20 MG TAB PO SCH (08:47)
[2019-11-15] MEDS: SERTRALINE HCL 50 MG TAB PO SCH (08:47)
[2019-11-15] MEDS: GABAPENTIN 100 MG CAP PO SCH ×2 (08:47→20:42)
[2019-11-15] MEDS: APIXABAN 2.5 MG TABLET PO SCH ×2 (08:48→20:42)
[2019-11-15] MEDS: MAGNESIUM OXIDE 400 MG TAB PO SCH (08:48)
[2019-11-15] MEDS: TRAMADOL HCL 50 MG TAB PO PRN (08:48)
[2019-11-15] MEDS: AMLODIPINE 5 MG TAB PO SCH (08:48)
[2019-11-15] MEDS: carvediloL 6.25 MG TAB PO SCH ×2 (08:48→20:00)
[2019-11-15] MEDS: LIDOCAINE 4% PATCH TOP SCH (08:49)
--- NOTE | 2019-11-15 13:00 | FAST ---
ENCOUNTER DATE AND TIME: 11/15/2019 08:00 (CDT) NAME RITA KIRKLAND DATE OF : 1930 DATE OF ADMISSION: 11/08/2019 17:49 (CDT) PHONE: AGE: 89 N# [id number] GENDER: Female ENCOUNTER PHYSICIAN: Dr. Rob Anguiano M.D. ADMISSION DIAGNOSIS: - Orthopaedic Disorders 08 - Unilateral Hip Fracture (08.11) BIPOLAR ARTHOPLASTY. ROLL LEFT AND RIGHT: ROLL LEFT AND RIGHT - STEP 1: Does the patient complete the activity by him/herself with no assistance (physical, verbal/nonverbal cueing, setup/clean-up)? No. ROLL LEFT AND RIGHT - STEP 2: Does the patient need only setup/clean-up assistance from one helper? No. ROLL LEFT AND RIGHT - STEP 3: Does the patient need only verbal/nonverbal cueing or touching/steadying/contact guard assistance fro m one helper? No. ROLL LEFT AND RIGHT - STEP 4: Does the patient need physical assistance - for example lifting or trunk support from one helper - wi th the helper providing less than half of the effort? Yes. 1. [id number] ADMISSION PERFORMANCE: Partial/moderate assistance CODE: 03 SIT TO LYING: SIT TO LYING - STEP 1: Does the patient complete the activity by him/herself with no assistance (physical, verbal/nonverbal cueing, setup/clean-up)? No. SIT TO LYING - STEP 2: Does the patient need only setup/clean-up assistance from one helper? No. SIT TO LYING - STEP 3: Does the patient need only verbal/nonverbal cueing or touching/steadying/contact guard assistance fro m one helper? No. SIT TO LYING - STEP 4: Does the patient need physical assistance - for example lifting or trunk support from one helper - wi th the helper providing less than half of the effort? Yes. 1. [id number] ADMISSION PERFORMANCE: Partial/moderate assistance CODE: 03 LYING TO SITTING: LYING TO SITTING ON SIDE OF BED - STEP 1: Does the patient complete the activity by him/herself with no assistance (physical, verbal/nonverbal cueing, setup/clean-up)? No. LYING TO SITTING ON SIDE OF BED - STEP 2: Does the patient need only setup/clean-up assistance from one helper? No. LYING TO SITTING ON SIDE OF BED - STEP 3: Does the patient need only verbal/nonverbal cueing or touching/steadying/contact guard assistance fro m one helper? No. LYING TO SITTING ON SIDE OF BED - STEP 4: Does the patient need physical assistance - for example lifting or trunk support from one helper - wi th the helper providing less than half of the effort? Yes. 1. [id number] ADMISSION PERFORMANCE: Partial/moderate assistance CODE: 03 SIT TO STAND: SIT TO STAND - STEP 1: Does the patient complete the activity by him/herself with no assistance (physical, verbal/nonverbal cueing, setup/clean-up)? No. SIT TO STAND - STEP 2: Does the patient need only setup/clean-up assistance from one helper? No. SIT TO STAND - STEP 3: Does the patient need only verbal/nonverbal cueing or touching/steadying/contact guard assistance fro m one helper? Yes. 1. [id number] ADMISSION PERFORMANCE: Supervision or touching assistance CODE: 04 TRANSFERS: BED, CHAIR: CHAIR/[id number] TRANSFER - STEP 1: Does the patient complete the activity by him/herself with no assistance (physical, verbal/nonverbal cueing, setup/clean-up)? No. CHAIR/[id number] TRANSFER - STEP 2: Does the patient need only setup/clean-up assistance from one helper? No. CHAIR/[id number] TRANSFER - STEP 3: Does the patient need only verbal/nonverbal cueing or touching/steadying/contact guard assistance fro m one helper? No. CHAIR/[id number] TRANSFER - STEP 4: Does the patient need physical assistance - for example lifting or trunk support from one helper - wi th the helper providing less than half of the effort? Yes. 1. [id number] ADMISSION PERFORMANCE: Partial/moderate assistance CODE: 03 TRANSFER TOILET: TOILET TRANSFER - STEP 1: Does the patient complete the activity by him/herself with no assistance (physical, verbal/nonverbal cueing, setup/clean-up)? No. TOILET TRANSFER - STEP 2: Does the patient need only setup/clean-up assistance from one helper? No. TOILET TRANSFER - STEP 3: Does the patient need only verbal/nonverbal cueing or touching/steadying/contact guard assistance fro m one helper? No. TOILET TRANSFER - STEP 4: Does the patient need physical assistance - for example lifting or trunk support from one helper - wi th the helper providing less than half of the effort? Yes. 1. [id number] ADMISSION PERFORMANCE: Partial/moderate assistance CODE: 03 TRANSFERS: CAR: Not attempted due to medical condition or safety concerns CODE: 88 WALK 10 FEET: WALK 10 FEET - STEP 1: Does the patient complete the activity by him/herself with no assistance (physical, verbal/nonverbal cueing, setup/clean-up)? No. WALK 10 FEET - STEP 2: Does the patient need only setup/clean-up assistance from one helper? No. WALK 10 FEET - STEP 3: Does the patient need only verbal/nonverbal cueing or touching/steadying/contact guard assistance fro m one helper? No. WALK 10 FEET - STEP 4: Does the patient need physical assistance - for example lifting or trunk support from one helper - wi th the helper providing less than half of the effort? Yes. 1. [id number] ADMISSION PERFORMANCE: Partial/moderate assistance CODE: 03 WALK 50 FEET: WALK 50 FEET - STEP 1: Does the patient complete the activity by him/herself with no assistance (physical, verbal/nonverbal cueing, setup/clean-up)? No. WALK 50 FEET - STEP 2: Does the patient need only setup/clean-up assistance from one helper? No. WALK 50 FEET - STEP 3: Does the patient need only verbal/nonverbal cueing or touching/steadying/contact guard assistance fro m one helper? No. WALK 50 FEET - STEP 4: Does the patient need physical assistance - for example lifting or trunk support from one helper - wi th the helper providing less than half of the effort? Yes. 1. [id number] ADMISSION PERFORMANCE: Partial/moderate assistance CODE: 03 WALK 150 FEET: Not attempted due to medical condition or safety concerns CODE: 88 WALK 10 FEET UNEVEN: Not attempted due to medical condition or safety concerns CODE: 88 1 STEP (CURB): Not attempted due to medical condition or safety concerns CODE: 88 PICKING UP OBJECT: Not attempted due to medical condition or safety concerns CODE: 88 DOES THE PATIENT USE A WHEELCHAIR/SCOOTER? Q1. DOES THE PATIENT USE A WHEELCHAIR/SCOOTER?: Yes CODE: 1 WHEEL 50 FEET WITH TWO TURNS: WHEEL 50 FEET WITH TWO TURNS - STEP 1: Does the patient complete the activity by him/herself with no assistance (physical, verbal/nonverbal cueing, setup/clean-up)? No. WHEEL 50 FEET WITH TWO TURNS - STEP 2: Does the patient need only setup/clean-up assistance from one helper? No. WHEEL 50 FEET WITH TWO TURNS - STEP 3: Does the patient need only verbal/nonverbal cueing or touching/steadying/contact guard assistance fro m one helper? No. WHEEL 50 FEET WITH TWO TURNS - STEP 4: Does the patient need physical assistance - for example lifting or trunk support from one helper - wi th the helper providing less than half of the effort? No. WHEEL 50 FEET WITH TWO TURNS - STEP 5: Does the patient need physical assistance - for example lifting or trunk support from one helper - wi th the helper providing more than half of the effort? Yes. 1. [id number] ADMISSION PERFORMANCE: Substantial/maximal assistance CODE: 02 INDICATE THE TYPE OF WHEELCHAIR/SCOOTER USED: RR1. INDICATE THE TYPE OF WHEELCHAIR/SCOOTER USED.: Manual CODE: 1 WHEEL 150 FEET: Not attempted due to medical condition or safety concerns CODE: 88 INDICATE THE TYPE OF WHEELCHAIR/SCOOTER USED: CODE: EXPR BLADDER AND BOWEL: CODE: EXPR CODE: EXPR SIGNATURE PANEL: The following modified sections: 1. [id number] Admission Performance, 1. QG0828G Admission Performance, 1. TD7060T Admission Performance, 1. VZ1604W Admission Performance, 1. CC0906E Admission Performance, 1. ZF1699I Admission Performance, 1. MQ5085S Admission Performance, 1. IZ0000L Admission Performance , 1. VJ8400C Admission Performance, 1. ON9655W Admission Performance, 1. BY5320B Admission Performanc e, Q1. Does the patient use a wheelchair/scooter?, 1. UB6500S Admission Performance, 1. HB7536C Admis vazquez Performance, RR1. Indicate the type of wheelchair/scooter used., Code were [electronically] sign ed by Mariangel Helton PTA on TueNov 15 2019 12:59:04 GMT-0500 (Central Daylight Time)
--- NOTE | 2019-11-15 17:35 | RAD REPORT ---
EXAM DESCRIPTION: RAD - Hip Left 2 View - 11/15/2019 4:44 pm CLINICAL HISTORY: elevated WBC Pain COMPARISON: Hip Left 2 View dated 11/03/2019 FINDINGS: Left total hip arthroplasty noted. Soft tissue swelling is evident lateral to the proximal left femur with skin nickolas noted.
--- NOTE | 2019-11-15 17:36 | RAD REPORT ---
EXAM DESCRIPTION: RAD - Chest Single View - 11/15/2019 4:44 pm CLINICAL HISTORY: increased WBC, R/O Pneumonia Chest pain. COMPARISON: Chest Single View dated 11/03/2019 FINDINGS: Portable technique limits examination quality. The lungs are grossly clear. The heart is upper limit of normal in size. No displaced fractures. IMPRESSION: No acute intrathoracic process suspected.
--- NOTE | 2019-11-15 18:05 | PN ---
Date of Progress Note: 11/15/2019 Subjective: Patient was seen this morning for followup. No new complaints or problems reported by bahman taylor. Lying in bed, not in any distress. Objective: Vital Signs: Reviewed. HEENT: Unremarkable. Lungs: Clear to auscultation. Heart: Sounds normal. Abdomen: Soft. Bowel sounds normal. No guarding, rigidity, tenderness, or distention. Extremities: No leg edema. Laboratory Data: White count 11.2, hemoglobin 9.4, platelets 297. Impression: 1.Hip fracture. 2.Hypertension. 3.Anemia. 4.Hyperlipidemia. 5.Chronic anticoagulation. Plan: We will go ahead and continue current medications. Continue current antihypertensive medicati on and Eliquis. Continue physical therapy per guidance of Dr. Anguiano. I will see her tomorrow for followup. Patient has a Perkins catheter in place and she is getting bladder training as per Dr. Kelvin lobo. RENÉE/MODL Voice ID: [id number] Report ID: [id number]
[2019-11-15] MEDS: ATORVASTATIN 20 MG TAB PO SCH (20:42)
[2019-11-15] MEDS: DOCUSATE NA/SENNA CONC 1 TAB PO SCH (20:42)
[2019-11-16] MEDS: BENAZEPRIL 20 MG TAB PO SCH (07:48)
[2019-11-16] MEDS: GABAPENTIN 100 MG CAP PO SCH ×2 (07:48→20:38)
[2019-11-16] MEDS: MAGNESIUM OXIDE 400 MG TAB PO SCH (07:48)
[2019-11-16] MEDS: AMLODIPINE 5 MG TAB PO SCH (07:49)
[2019-11-16] MEDS: TAMSULOSIN 0.4 MG SR CAP PO SCH (07:49)
[2019-11-16] MEDS: carvediloL 6.25 MG TAB PO SCH ×2 (07:50→20:39)
[2019-11-16] MEDS: SERTRALINE HCL 50 MG TAB PO SCH (07:50)
[2019-11-16] MEDS: APIXABAN 2.5 MG TABLET PO SCH ×2 (07:54→20:38)
[2019-11-16] MEDS: PROMOD 30 ML DOSE PO SCH ×2 (08:00→20:00)
--- NOTE | 2019-11-16 09:54 | P.RH.PN ---
Estimated Length of Stay: 17 Expected Discharge Date: 11/24/19 Discharge Disposition Plan: Home Family Support: Yes Penitentiary Goal: Mobility, Transfers, Self Care Vital Signs: Last Vital Signs Temp 97.6 F 11/16/19 06:58 Pulse 70 11/16/19 07:50 Resp 18 11/16/19 06:58 BP 133/56 L 11/16/19 07:50 Pulse Ox 99 11/16/19 06:58 Laboratory: Laboratory Last Values WBC 11.2 K/uL (4.3-10.9) H D 11/15/19 06:42 RBC 3.36 M/uL (3.86-4.86) L 11/15/19 06:42 Hgb 9.4 g/dL (12.0-15.0) L 11/15/19 06:42 Hct 29.5 % (36.0-45.0) L 11/15/19 06:42 MCV 87.8 fL (80-100) 11/15/19 06:42 MCH 27.9 pg (27.0-35.0) 11/15/19 06:42 MCHC 31.8 g/dL (32.0-36.0) L 11/15/19 06:42 RDW 15.8 % (12.1-15.2) H 11/15/19 06:42 Plt Count 297 K/uL (152-406) D 11/15/19 06:42 MPV 9.1 fL (7.6-11.3) 11/15/19 06:42 Neutrophils % 75.8 % (41.7-73.7) H 11/15/19 06:42 Lymphocytes % 12.4 % (15.3-44.8) L 11/15/19 06:42 Monocytes % 7.5 % (3.3-12.3) 11/15/19 06:42 Eosinophils % 3.7 % (0-4.4) 11/15/19 06:42 Basophils % 0.6 % (0-1.3) 11/15/19 06:42 Absolute Neutrophils 8.5 K/uL (1.8-8.0) H 11/15/19 06:42 Absolute Lymphocytes 1.4 K/uL (0.7-4.9) 11/15/19 06:42 Absolute Monocytes 0.8 K/uL (0.1-1.3) 11/15/19 06:42 Absolute Eosinophils 0.4 K/uL (0-0.5) 11/15/19 06:42 Absolute Basophils 0.1 K/uL (0-0.5) 11/15/19 06:42 Sodium 142 mmol/L (136-145) 11/15/19 06:42 Potassium 4.4 mmol/L (3.5-5.1) 11/15/19 06:42 Chloride 110 mmol/L (98-107) H 11/15/19 06:42 Carbon Dioxide 27 mmol/L (21-32) 11/15/19 06:42 BUN 15 mg/dL (7-18) 11/15/19 06:42 Creatinine 0.56 mg/dL (0.55-1.3) 11/15/19 06:42 Estimated GFR > 90 mL/min (=/>90) 11/15/19 06:42 Glucose 112 mg/dL (74-106) H 11/15/19 06:42 Calcium 8.3 mg/dL (8.5-10.1) L 11/15/19 06:42 Magnesium 2.4 mg/dL (1.8-2.4) 11/15/19 06:42 Total Bilirubin 0.6 mg/dL (0.2-1.0) 11/15/19 06:42 AST 34 U/L (15-37) 11/15/19 06:42 ALT 46 U/L (12-78) 11/15/19 06:42 Alkaline Phosphatase 60 U/L (45-117) 11/15/19 06:42 Serum Total Protein 6.0 g/dL (6.4-8.2) L 11/15/19 06:42 Albumin 2.5 g/dL (3.4-5.0) L 11/15/19 06:42 Globulin 3.5 g/dL (2.3-3.5) 11/15/19 06:42 Albumin/Globulin Ratio 0.7 (1.1-1.8) L 11/15/19 06:42 Prealbumin 11.5 mg/dL (20-40) L 11/15/19 06:42 Urine Color Yellow 11/09/19 15:15 Urine Appearance Clear 11/09/19 15:15 Urine pH 6.0 (5.0-7.0) 11/09/19 15:15 Ur Specific [place] 1.020 (1.005-1.030) 11/09/19 15:15 Glucose (UA)(Auto) Negative (NEG) 11/09/19 15:15 Urine Ketones Negative (NEG) 11/09/19 15:15 Urine Blood Negative (NEG) 11/09/19 15:15 Urine Nitrite Negative (NEG) 11/09/19 15:15 Urine Bilirubin Negative (NEG) 11/09/19 15:15 Urine Urobilinogen 0.2 mg/dL (0.2-1.0) 11/09/19 15:15 Ur Leukocyte Esterase Negative (NEG) 11/09/19 15:15 Urine RBC None seen /HPF (NONE SEEN) 11/09/19 15:15 Urine WBC <5 /HPF (<5) 11/09/19 15:15 Ur Squamous Epith Cells <5 /HPF (NONE SEEN) 11/09/19 15:15 Urine Bacteria <20 /HPF (<20) 11/09/19 15:15 Urine Culture Reflexed Not needed 11/09/19 15:15 Urine Total Protein Negative (NEG) 11/09/19 15:15 Weight: 153 lb 14.4 oz Wound Present: Yes Closed Surgical Incision Present: Yes Negative Pressure Wound Therapy Present: No Physician Update: Labs reviewed and WBC increased to 11.2 from 8.9 over 7 days. Will repeat the CBC on Tuesday. Prealbumin is 11.5. She is max to mod assistance witih ADLs given her dementia. She will require 24/7 assistance at home versus [facility]ci. Functional Improvement: pt presents with severe generalized weakness. pt demonstrates poor trunk strength. pt exhibits poor balance and stability in both sitting and standing during functional activity. pt demonstrates some delayed processing and likely cognitive impairment. pt experiences poor tolerance to functional activity due to pain, fatigue, weakness, and SOB. Skilled PT services are necessary to address the above mentioned impairments and functional limitations. Summary: Patient's care plan and usp goals have been reviewed and revised as necessary. Please see the Rehabilitation Signature page for all necessary signatures.
[2019-11-16] MEDS: LIDOCAINE 4% PATCH TOP SCH (09:59)
--- NOTE | 2019-11-16 13:21 | PN ---
Date of Progress Note: 11/16/2019 Subjective: Patient was seen this morning for followup. No new complaints or problems reported. Sh lashell was sitting in the wheelchair. Denied any new complaints. Objective: Vital Signs: Reviewed. HEENT: Unremarkable. Lungs: Clear to auscultation. Heart: Sounds normal. Abdomen: Soft. Bowel sounds normal. No guarding, rigidity, tenderness, or distention. Extremities: No leg edema. Impression: 1.Hip fracture. 2.Hypertension. 3.Anemia. 4.Urinary retention. Plan: We will continue current medication. Continue Perkins catheter. I have discontinued her narcot ic pain medication and Tylenol will be continued and we will see if this also helps to improve her ur inary retention problem or not. RENÉE/MODL Voice ID: [id number] Report ID: [id number]
--- NOTE | 2019-11-16 15:47 | FAST ---
ENCOUNTER DATE AND TIME: 11/16/2019 08:00 (CDT) NAME RITA KIRKLAND DATE OF : 1930 DATE OF ADMISSION: 11/08/2019 17:49 (CDT) PHONE: AGE: 89 N# [id number] GENDER: Female ENCOUNTER PHYSICIAN: Dr. Rob Anguiano M.D. ADMISSION DIAGNOSIS: - Orthopaedic Disorders 08 - Unilateral Hip Fracture (08.11) BIPOLAR ARTHOPLASTY. EATING: Not assessed/no information CODE: - ORAL HYGIENE: ORAL HYGIENE - STEP 1: Does the patient complete the activity by him/herself with no assistance (physical, verbal/nonverbal cueing, setup/clean-up)? Yes. 1. [id number] ADMISSION PERFORMANCE: Independent CODE: 06 TOILETING HYGIENE: Not assessed/no information CODE: - BATHING: SHOWER/BATHE SELF - STEP 1: Does the patient complete the activity by him/herself with no assistance (physical, verbal/nonverbal cueing, setup/clean-up)? No. SHOWER/BATHE SELF - STEP 2: Does the patient need only setup/clean-up assistance from one helper? No. SHOWER/BATHE SELF - STEP 3: Does the patient need only verbal/nonverbal cueing or touching/steadying/contact guard assistance fro m one helper? Yes. 1. [id number] ADMISSION PERFORMANCE: Supervision or touching assistance CODE: 04 DRESSING - UPPER BODY: DRESSING - UPPER BODY - STEP 1: Does the patient complete the activity by him/herself with no assistance (physical, verbal/nonverbal cueing, setup/clean-up)? No. DRESSING - UPPER BODY - STEP 2: Does the patient need only setup/clean-up assistance from one helper? Yes. 1. [id number] ADMISSION PERFORMANCE: Setup or clean-up assistance CODE: 05 DRESSING - LOWER BODY: DRESSING - LOWER BODY - STEP 1: Does the patient complete the activity by him/herself with no assistance (physical, verbal/nonverbal cueing, setup/clean-up)? No. DRESSING - LOWER BODY - STEP 2: Does the patient need only setup/clean-up assistance from one helper? No. DRESSING - LOWER BODY - STEP 3: Does the patient need only verbal/nonverbal cueing or touching/steadying/contact guard assistance fro m one helper? No. DRESSING - LOWER BODY - STEP 4: Does the patient need physical assistance - for example lifting or trunk support from one helper - wi th the helper providing less than half of the effort? No. DRESSING - LOWER BODY - STEP 5: Does the patient need physical assistance - for example lifting or trunk support from one helper - wi th the helper providing more than half of the effort? Yes. 1. [id number] ADMISSION PERFORMANCE: Substantial/maximal assistance CODE: 02 PUTTING ON/TAKING OFF FOOTWEAR: FOOTWEAR - STEP 1: Does the patient complete the activity by him/herself with no assistance (physical, verbal/nonverbal cueing, setup/clean-up)? No. FOOTWEAR - STEP 2: Does the patient need only setup/clean-up assistance from one helper? No. FOOTWEAR - STEP 3: Does the patient need only verbal/nonverbal cueing or touching/steadying/contact guard assistance fro m one helper? No. FOOTWEAR - STEP 4: Does the patient need physical assistance - for example lifting or trunk support from one helper - wi th the helper providing less than half of the effort? Yes. 1. [id number] ADMISSION PERFORMANCE: Partial/moderate assistance CODE: 03 DOES THE PATIENT USE A WHEELCHAIR/SCOOTER? CODE: EXPR INDICATE THE TYPE OF WHEELCHAIR/SCOOTER USED: CODE: EXPR INDICATE THE TYPE OF WHEELCHAIR/SCOOTER USED: CODE: EXPR BLADDER AND BOWEL: CODE: EXPR CODE: EXPR SIGNATURE PANEL: The following modified sections: 1. [id number] Admission Performance, 1. [id number] Admission Performance, 1. LL9386s Admission Performance, 1. FI4683g Admission Performance, 1. JD6992c Admission Performance, 1. BA6992e Admission Performance were [electronically] signed by ROXANNE Toledo on TueNov 16 2019 15:46:25 GMT-0500 (Central Daylight Time)
[2019-11-16] MEDS: ATORVASTATIN 20 MG TAB PO SCH (20:38)
[2019-11-16] MEDS: DOCUSATE NA/SENNA CONC 1 TAB PO SCH (20:38)
--- NOTE | 2019-11-17 02:14 | FAST ---
SHIFT START DATE/TIME: 11/16/2019 19:00 (CDT) SHIFT END DATE/TIME: 11/17/2019 07:00 (CDT) NAME RITA KIRKLAND DATE OF : 1930 DATE OF ADMISSION: 11/08/2019 17:49 (CDT) PHONE: AGE: 89 N# [id number] GENDER: Female ENCOUNTER PHYSICIAN: Dr. Rob Anguiano M.D. ADMISSION DIAGNOSIS: - Orthopaedic Disorders 08 - Unilateral Hip Fracture (08.11) BIPOLAR ARTHOPLASTY. EATING: Not assessed/no information CODE: - ORAL HYGIENE: Not assessed/no information CODE: - TOILETING HYGIENE: TOILETING HYGIENE - STEP 1: Does the patient complete the activity by him/herself with no assistance (physical, verbal/nonverbal cueing, setup/clean-up)? No. TOILETING HYGIENE - STEP 2: Does the patient need only setup/clean-up assistance from one helper? No. TOILETING HYGIENE - STEP 3: Does the patient need only verbal/nonverbal cueing or touching/steadying/contact guard assistance fro m one helper? No. TOILETING HYGIENE - STEP 4: Does the patient need physical assistance - for example lifting or trunk support from one helper - wi th the helper providing less than half of the effort? No. TOILETING HYGIENE - STEP 5: Does the patient need physical assistance - for example lifting or trunk support from one helper - wi th the helper providing more than half of the effort? Yes. 1. [id number] ADMISSION PERFORMANCE: Substantial/maximal assistance CODE: 02 BATHING: Not assessed/no information CODE: - DRESSING - UPPER BODY: Not assessed/no information CODE: - DRESSING - LOWER BODY: Not assessed/no information CODE: - PUTTING ON/TAKING OFF FOOTWEAR: Not assessed/no information CODE: - ROLL LEFT AND RIGHT: ROLL LEFT AND RIGHT - STEP 1: Does the patient complete the activity by him/herself with no assistance (physical, verbal/nonverbal cueing, setup/clean-up)? No. ROLL LEFT AND RIGHT - STEP 2: Does the patient need only setup/clean-up assistance from one helper? No. ROLL LEFT AND RIGHT - STEP 3: Does the patient need only verbal/nonverbal cueing or touching/steadying/contact guard assistance fro m one helper? No. ROLL LEFT AND RIGHT - STEP 4: Does the patient need physical assistance - for example lifting or trunk support from one helper - wi th the helper providing less than half of the effort? No. ROLL LEFT AND RIGHT - STEP 5: Does the patient need physical assistance - for example lifting or trunk support from one helper - wi th the helper providing more than half of the effort? Yes. 1. [id number] ADMISSION PERFORMANCE: Substantial/maximal assistance CODE: 02 SIT TO LYING: Not assessed/no information CODE: - LYING TO SITTING: Not assessed/no information CODE: - SIT TO STAND: Not assessed/no information CODE: - TRANSFERS: BED, CHAIR: Not assessed/no information CODE: - TRANSFER TOILET: Not assessed/no information CODE: - TRANSFERS: CAR: Not assessed/no information CODE: - WALK 10 FEET: Not assessed/no information CODE: - 1 STEP (CURB): Not assessed/no information CODE: - PICKING UP OBJECT: Not assessed/no information CODE: - DOES THE PATIENT USE A WHEELCHAIR/SCOOTER? CODE: EXPR WHEEL 50 FEET WITH TWO TURNS: Not assessed/no information CODE: - INDICATE THE TYPE OF WHEELCHAIR/SCOOTER USED: CODE: EXPR WHEEL 150 FEET: Not assessed/no information CODE: - INDICATE THE TYPE OF WHEELCHAIR/SCOOTER USED: CODE: EXPR BLADDER AND BOWEL: H350. BLADDER CONTINENCE (3-DAY ASSESSMENT PERIOD): Not applicable (e.g., indwelling catheter) CODE: 9 H400. BOWEL CONTINENCE (3-DAY ASSESSMENT PERIOD): Always incontinent (no episodes of continent bowel movements) CODE: 3
[2019-11-17 05:38] VITALS: BMI 24.0
[2019-11-17] MEDS: AMLODIPINE 5 MG TAB PO SCH (08:00)
[2019-11-17] MEDS: carvediloL 6.25 MG TAB PO SCH ×2 (08:00→20:45)
[2019-11-17] MEDS: BENAZEPRIL 20 MG TAB PO SCH (08:00)
[2019-11-17] MEDS: LIDOCAINE 4% PATCH TOP SCH (08:27)
[2019-11-17] MEDS: APIXABAN 2.5 MG TABLET PO SCH ×2 (08:28→20:46)
[2019-11-17] MEDS: MAGNESIUM OXIDE 400 MG TAB PO SCH (08:29)
[2019-11-17] MEDS: GABAPENTIN 100 MG CAP PO SCH ×3 (08:29→20:46)
[2019-11-17] MEDS: SERTRALINE HCL 50 MG TAB PO SCH (08:30)
[2019-11-17] MEDS: TAMSULOSIN 0.4 MG SR CAP PO SCH (08:31)
[2019-11-17] MEDS: PROMOD 30 ML DOSE PO SCH ×2 (08:39→20:45)
[2019-11-17] MEDS: ACETAMINOPHEN 500 MG TAB PO PRN (14:56)
--- NOTE | 2019-11-17 18:07 | PN ---
Date of Progress Note: 11/17/2019 Subjective: Patient was seen this morning for followup. No new complaints, problems reported by paz basurto. Sitting in wheelchair. Objective: Vital Signs: Reviewed. HEENT: Examination unremarkable. Lungs: Clear to auscultation. Heart: Sounds normal. Abdomen: Soft. Bowel sounds normal. No guarding, rigidity, tenderness, or distention. Extremities: No leg edema. Impression: 1.Hip fracture. 2.Anemia due to acute blood loss. 3.Hypertension. 4.Hyperlipidemia. 5.Chronic anticoagulation therapy. Plan: We will continue current medications. Continue current anticoagulation therapy, antihypertens jose medication. Physical therapy to be provided under guidance of Dr. Anguiano. We will see her miles villalobos for followup. RENÉE/MODL Voice ID: [id number] Report ID: [id number]
[2019-11-17] MEDS: ATORVASTATIN 20 MG TAB PO SCH (20:46)
[2019-11-17] MEDS: DOCUSATE NA/SENNA CONC 1 TAB PO SCH (20:47)
[2019-11-18] MEDS: MAGNESIUM OXIDE 400 MG TAB PO SCH (07:35)
[2019-11-18] MEDS: LIDOCAINE 4% PATCH TOP SCH (07:35)
[2019-11-18] MEDS: APIXABAN 2.5 MG TABLET PO SCH ×2 (07:36→20:26)
[2019-11-18] MEDS: GABAPENTIN 100 MG CAP PO SCH ×3 (07:36→20:26)
[2019-11-18] MEDS: SERTRALINE HCL 50 MG TAB PO SCH (07:36)
[2019-11-18] MEDS: carvediloL 6.25 MG TAB PO SCH ×2 (07:37→20:00)
[2019-11-18] MEDS: TAMSULOSIN 0.4 MG SR CAP PO SCH (07:37)
[2019-11-18] MEDS: BENAZEPRIL 20 MG TAB PO SCH (07:37)
[2019-11-18] MEDS: AMLODIPINE 5 MG TAB PO SCH (07:38)
[2019-11-18] MEDS: PROMOD 30 ML DOSE PO SCH ×2 (07:39→20:27)
--- NOTE | 2019-11-18 13:17 | PN ---
Date of Progress Note: 11/18/2019 Subjective: Patient was seen this morning for followup. No new complaints or problems reported by p atient, lying in bed, not in distress. She has a catheter in place and getting bladder training as p er instruction from Dr. Chappell. Narcotic pain medications were discontinued to see if that will britney t her with urinary retention problem. Her catheter will come out probably in next couple of days as per instruction from Dr. Chappell. Objective: Vital Signs: Reviewed. HEENT: Unremarkable. Lungs: Clear to auscultation. Heart: Sounds normal. Abdomen: Soft. Bowel sounds normal. No guarding, rigidity, tenderness, or distention. Extremities: No leg edema. Impression: 1.Hip fracture. 2.Urinary retention. 3.Hypertension. 4.Hyperlipidemia. Plan: We will go ahead and continue current medications. Continue bladder training program per Dr. Chappell and continue current anticoagulation therapy. I will see her tomorrow. RENÉE/MODL Voice ID: [id number] Report ID: [id number]
[2019-11-18] MEDS: ATORVASTATIN 20 MG TAB PO SCH (20:26)
[2019-11-18] MEDS: ACETAMINOPHEN 500 MG TAB PO PRN (20:26)
[2019-11-18] MEDS: DOCUSATE NA/SENNA CONC 1 TAB PO SCH (20:27)
[2019-11-19 06:25] LABS: Absolute Lymphocytes (CBC) 1.3 K/uL (0.7-4.9); Basophils % 0.8 % (0-1.3); Hematocrit 29.2 % (36.0-45.0); Lymphocytes % 16.1 % (15.3-44.8)
[2019-11-19] MEDS: carvediloL 6.25 MG TAB PO SCH ×2 (08:00→21:12)
[2019-11-19] MEDS: PROMOD 30 ML DOSE PO SCH ×2 (08:00→20:00)
[2019-11-19] MEDS: BENAZEPRIL 20 MG TAB PO SCH (08:45)
[2019-11-19] MEDS: LIDOCAINE 4% PATCH TOP SCH (08:45)
[2019-11-19] MEDS: GABAPENTIN 100 MG CAP PO SCH ×3 (08:46→21:12)
[2019-11-19] MEDS: AMLODIPINE 5 MG TAB PO SCH (08:46)
[2019-11-19] MEDS: APIXABAN 2.5 MG TABLET PO SCH ×2 (08:46→21:11)
[2019-11-19] MEDS: ACETAMINOPHEN 500 MG TAB PO PRN ×3 (08:47→21:11)
[2019-11-19] MEDS: MAGNESIUM OXIDE 400 MG TAB PO SCH (08:47)
[2019-11-19] MEDS: SERTRALINE HCL 50 MG TAB PO SCH (08:47)
[2019-11-19] MEDS: TAMSULOSIN 0.4 MG SR CAP PO SCH (08:47)
--- NOTE | 2019-11-19 12:17 | FAST ---
ENCOUNTER DATE AND TIME: 11/19/2019 08:00 (CDT) NAME RITA KIRKLAND DATE OF : 1930 DATE OF ADMISSION: 11/08/2019 17:49 (CDT) PHONE: AGE: 89 N# [id number] GENDER: Female ENCOUNTER PHYSICIAN: Dr. Rob Anguiano M.D. ADMISSION DIAGNOSIS: - Orthopaedic Disorders 08 - Unilateral Hip Fracture (08.11) BIPOLAR ARTHOPLASTY. EATING: Not assessed/no information CODE: - ORAL HYGIENE: ORAL HYGIENE - STEP 1: Does the patient complete the activity by him/herself with no assistance (physical, verbal/nonverbal cueing, setup/clean-up)? No. ORAL HYGIENE - STEP 2: Does the patient need only setup/clean-up assistance from one helper? No. ORAL HYGIENE - STEP 3: Does the patient need only verbal/nonverbal cueing or touching/steadying/contact guard assistance fro m one helper? Yes. 1. [id number] ADMISSION PERFORMANCE: Supervision or touching assistance CODE: 04 TOILETING HYGIENE: TOILETING HYGIENE - STEP 1: Does the patient complete the activity by him/herself with no assistance (physical, verbal/nonverbal cueing, setup/clean-up)? No. TOILETING HYGIENE - STEP 2: Does the patient need only setup/clean-up assistance from one helper? No. TOILETING HYGIENE - STEP 3: Does the patient need only verbal/nonverbal cueing or touching/steadying/contact guard assistance fro m one helper? No. TOILETING HYGIENE - STEP 4: Does the patient need physical assistance - for example lifting or trunk support from one helper - wi th the helper providing less than half of the effort? Yes. 1. [id number] ADMISSION PERFORMANCE: Partial/moderate assistance CODE: 03 BATHING: SHOWER/BATHE SELF - STEP 1: Does the patient complete the activity by him/herself with no assistance (physical, verbal/nonverbal cueing, setup/clean-up)? No. SHOWER/BATHE SELF - STEP 2: Does the patient need only setup/clean-up assistance from one helper? No. SHOWER/BATHE SELF - STEP 3: Does the patient need only verbal/nonverbal cueing or touching/steadying/contact guard assistance fro m one helper? Yes. 1. [id number] ADMISSION PERFORMANCE: Supervision or touching assistance CODE: 04 DRESSING - UPPER BODY: DRESSING - UPPER BODY - STEP 1: Does the patient complete the activity by him/herself with no assistance (physical, verbal/nonverbal cueing, setup/clean-up)? No. DRESSING - UPPER BODY - STEP 2: Does the patient need only setup/clean-up assistance from one helper? Yes. 1. ADMISSION PERFORMANCE: Setup or clean-up assistance CODE: 05 DRESSING - LOWER BODY: DRESSING - LOWER BODY - STEP 1: Does the patient complete the activity by him/herself with no assistance (physical, verbal/nonverbal cueing, setup/clean-up)? No. DRESSING - LOWER BODY - STEP 2: Does the patient need only setup/clean-up assistance from one helper? No. DRESSING - LOWER BODY - STEP 3: Does the patient need only verbal/nonverbal cueing or touching/steadying/contact guard assistance fro m one helper? No. DRESSING - LOWER BODY - STEP 4: Does the patient need physical assistance - for example lifting or trunk support from one helper - wi th the helper providing less than half of the effort? No. DRESSING - LOWER BODY - STEP 5: Does the patient need physical assistance - for example lifting or trunk support from one helper - wi th the helper providing more than half of the effort? Yes. 1. ADMISSION PERFORMANCE: Substantial/maximal assistance CODE: 02 PUTTING ON/TAKING OFF FOOTWEAR: FOOTWEAR - STEP 1: Does the patient complete the activity by him/herself with no assistance (physical, verbal/nonverbal cueing, setup/clean-up)? No. FOOTWEAR - STEP 2: Does the patient need only setup/clean-up assistance from one helper? No. FOOTWEAR - STEP 3: Does the patient need only verbal/nonverbal cueing or touching/steadying/contact guard assistance fro m one helper? No. FOOTWEAR - STEP 4: Does the patient need physical assistance - for example lifting or trunk support from one helper - wi th the helper providing less than half of the effort? Yes. 1. [id number] ADMISSION PERFORMANCE: Partial/moderate assistance CODE: 03 DOES THE PATIENT USE A WHEELCHAIR/SCOOTER? CODE: EXPR INDICATE THE TYPE OF WHEELCHAIR/SCOOTER USED: CODE: EXPR INDICATE THE TYPE OF WHEELCHAIR/SCOOTER USED: CODE: EXPR BLADDER AND BOWEL: CODE: EXPR CODE: EXPR SIGNATURE PANEL: The following modified sections: 1. [id number] Admission Performance, 1. [id number] Admission Performance, 1. [id number] Admission Performance, 1. [id number] Admission Performance, 1. [id number] Admission Performance, 1. ST0438c Admission Performance were [electronically] signed by ROXANNE Toledo on TueNov 19 2019 12:16:33 T-0500 (Central Daylight Time)
--- NOTE | 2019-11-19 17:50 | R.PN ---
ENCOUNTER DATE AND TIME: 11/19/2019 17:44 (CDT) NAME RITA KIRKLAND DATE OF : 1930 DATE OF ADMISSION: 11/08/2019 17:49 (CDT) BIPOLAR ARTHOPLASTYCHIEF COMPLAINT: Left hip fracture s/p biopolar arthroplasty SUBJECTIVE: Pt denied any depression. Pt denied any Shortness of Breath. Ambulated 191' with moderate assistance using a rolling walker. Recalled information with 50% accurac y and moderate assistance. CBC with differential shows a decrease in WBC to 8.2 from 11.2, 4 days ago . Chest x-ray is clear. Left hip x-ray showed soft tissue swelling lateral to the left femur. Mildly low Hgb of 9.4, prealbumin low at 11.5, glucose 112. UA is normal. Mobilized using a wheelchair with moderate assistance. Poor cognitive functioning. Recalled 0/3 hip precautions with speech therapist. VITAL SIGNS Temperature: 98.4 F SBP/DBP: 114/56 Pulse: 80 Resp: 16 MEDICATION ALLERGIES: No Known Drug Allergies (NKDA) ENVIRONMENTAL ALLERGIES: - Substance Allergies None Known - Other Allergies None Known NURSING: - Shower allowing shower - Skin care per protocol PRECAUTIONS: - Anterior Hip Precaution No abduction No active extension No adduction across midline No external rotation No hip flexion >90 degrees No internal rotation - Posterior Hip Precaution No adduction across midline No external rotation No hip flexion >90 degrees No internal rotation No wheel chair propulsion - Weight Bearing Precaution WBAT left LE ACTIVITIES OOB only with supervision THERAPIES: - Dietary and Nutrition Adequate Nutrition. Nutritional Education. Nutritional Supplements. PHYSICAL EXAM - Gen Alert and awake Lying in bed No apparent distress Oriented to: person, time, and place - Skin No skin breakdown. Normacephalic - Eyes No abnormalities - ENMT No abnormalities - Neck No abnormalities - CVS RRR - Chest No abnormalities - Abd Soft - GI Non distended Deferred - No abnormalities - Ext Mild left lower extremity edema. Left hip surgical site has good hemostasis. - MSK 4+/5 weakness in left lower extremity - Neuro 4/5 strength left lower extremity. - Psych No abnormalities ASSESSMENT: Pt. is a 89 yo Right-handed white female.On 11/08/2019 she was admitted to [facility] an d underwent emergency surgery for BIPOLAR ARTHOPLASTY (Unilateral Hip Fracture) by POLI.Pre-morbidly, Pt. was independent/mod-I in Safety Awareness, Balance, Social Cognition, Endurance, Communication, and Self-Care; and she had good Locomotion, Safety Awareness, Balance, Social Cognition, Transfers Co ntrol, Endurance, and Self-Care.Currently, she has deficits of Endurance, Communication, Self-Care, S phincter Control, Transfers Control, and Social Cognition.Pt. is now referred to [facility] for acute in-patient rehabilitation in order to maximize patient's functional independe nce in activities of daily living, strength, ROM, and mobility.- Rehab Goal Patient has realistic goal of being discharged at assistance level 2-maxA to reside at Home with Fam sri/Relatives. MDM/PLAN: - Physical Therapy Decreased range of motion - to improve, our physical therapists will perform initial evaluation of p t's status upon admission and devise an individualized program for increasing patient's Range of Harris on. Gait dysfunction - to improve, our physical therapists will perform initial evaluation of pt's statu s upon admission and devise an individualized program for Gait Training, and Wheel Chair mobility Inability to transfer - to improve, our physical therapists will perform initial evaluation of pt's status upon admission and devise an individualized program for Bed mobility Need for home safety evaluation - to improve, our physical therapists will perform initial evaluatio n of pt's status upon admission and devise an individualized program for Home Evaluation Need in caregiver upon discharge - to improve, our physical therapists will perform initial evaluati on of pt's status upon admission and devise an individualized program for Caregiver Training Edema - to improve, our physical therapists will perform initial evaluation of pt's status upon admi ssion and devise an individualized program for Elevation Training, and Lymphedema Therapy New precaution - to improve, our physical therapists will perform initial evaluation of pt's status upon admission and devise an individualized program for Patient precaution education Poor endurance - to improve, our physical therapists will perform initial evaluation of pt's status upon admission and devise an individualized program for Endurance Training Weakness - to improve, our physical therapists will perform initial evaluation of pt's status upon a dmission and devise an individualized program for Aquatic Therapy, Neuromuscular Reeducation, and Str engthening Achieving independence - to improve, our physical therapists will perform initial evaluation of pt's status upon admission and devise an individualized program for Community Reintegration Activities - Occupational Therapy ADL deficits - to improve, our occupation therapists will perform initial evaluation of pt's status upon admission and devise an individualized program for Bathing, Bed mobility, Community Reintegratio n, Cooking, Dressing, Eating, Fine Motor Skills, Grooming, Homemaking, Kitchen Mobility, Laundry, Pat ient Education, Safety Awareness, Splinting - Positioning, Transfers(Toilet, Tub, Shower), and Wheel Chair Management Cognitive deficits - to improve, our occupation therapists will perform initial evaluation of pt's s tatus upon admission and devise an individualized program for Cognition - orientation Need for manager medicare marketing - to improve, our occupation therapists will perform initial evaluation of pt's status upon admission and devise an individualized program for Caregiver Training Weakness - to improve, our occupation therapists will perform initial evaluation of pt's status upon admission and devise an individualized program for Aquatic Therapy, Balance, Endurance, UE ROM, and UE strengthening - Other See attached MAR (Medication Administration Record) - Anterior Hip Precaution No abduction No active extension No adduction across midline No external rotation No hip flexion >90 degrees No internal rotation - Diet - Liquid Texture Continue Regular - Tube Feed Continue N/A - Diet Type Continue Regular - Posterior Hip Precaution No adduction across midline No external rotation No hip flexion >90 degrees No internal rotation No wheel chair propulsion - Weight Bearing Precaution WBAT left LE - Skin care per protocol - Diet - Solid Texture Continue Regular - Shower allowing shower FUNCTIONAL STATUS: UPDATED AT WEEKLY TEAM CONFERENCE - Bladder Same accident frequency: 7-Ind - No accidents in the past 7 days - Bowel Same accident frequency: 7-Ind - No accidents in the past 7 days - Walking Same score based on distance walked: 0(N/A) Same score based on distance walked: 1(<=50ft) - Wheelchair Same score based on distance traveled: 0(N/A) FUNCTIONAL STATUS: - Self-Care A. Eating Ind B. Grooming Kody C. Bathing sup D. Dressing - Upper sup E. Dressing - Lower modA F. Toileting Lio - Sphincter Control G. Bladder control sup H. Bowel control Kody - Transfers Control I. Bed/Chair/Wheelchair sup J. Toilet sup K. Tub/Shower sup - Locomotion L. Walk/Wheelchair (B) modA M. Stairs ADNO - Communication N. Comprehension (B) sup O. Expression (B) modA - Social Cognition P. Social Interaction Lio Q. Problem Solving Lio R. Memory modA - Endurance Fair - Balance Fair - Safety Awareness Fair QI SCORES: - Self-Care A. Eating 06-Independent B. Oral hygiene 03-Partial/moderate assistance C. Toileting hygiene 02-Substantial/maximal assistance E. Shower/bathe self 02-Substantial/maximal assistance F. Upper body dressing 03-Partial/moderate assistance G. Lower body dressing 88-Not attempted due to medical condition or safety concerns H. Putting on/taking off footwear 88-Not attempted due to medical condition or safety concerns - Mobility B. Sit to lying 02-Substantial/maximal assistance C. Lying to sitting on side of bed 02-Substantial/maximal assistance D. Sit to stand 02-Substantial/maximal assistance E. Chair/fdz-ac-fgveh transfer 02-Substantial/maximal assistance F. Toilet transfer 02-Substantial/maximal assistance G. Car transfer 88-Not attempted due to medical condition or safety concerns I. Walk 10 feet 02-Substantial/maximal assistance J. Walk 50 feet with two turns 88-Not attempted due to medical condition or safety concerns K. Walk 150 feet 88-Not attempted due to medical condition or safety concerns L. Walking 10 feet on uneven surfaces 88-Not attempted due to medical condition or safety concerns M. 1 step (curb) 88-Not attempted due to medical condition or safety concerns N. 4 steps 88-Not attempted due to medical condition or safety concerns O. 12 steps 88-Not attempted due to medical condition or safety concerns P. Picking up object 06-Independent R. Wheel 50 feet with two turns 88-Not attempted due to medical condition or safety concerns S. Wheel 150 feet 88-Not attempted due to medical condition or safety concerns - Bladder and Bowel Bladder continence 0-Always continent Bowel continence 0-Always continent - Endurance Fair - Balance Fair - Safety Awareness Fair CURRENT FUNC. DEFICITS: Mobility, Endurance, Balance, Safety Awareness, and Self-Care SIGNATURE PANEL: (CDT)
--- NOTE | 2019-11-19 20:57 | PN ---
Date of Progress Note: 11/19/2019 Subjective: Patient was seen this morning for followup. No new complaints or problems reported by bahman taylor. Lying in bed, not in distress. Objective: Vital Signs: Reviewed. HEENT: Unremarkable. Lungs: Clear to auscultation. Heart: Sounds normal. Abdomen: Soft. Bowel sounds normal. No guarding, rigidity, tenderness, or distention. Extremities: No leg edema. Laboratory Data: White count 8.2, hemoglobin 9, platelets 322. Impression: 1.Hip fracture. 2.Anemia. 3.Chronic anticoagulation therapy. 4.Hypertension. Plan: Continue current medications. We will go ahead and continue current antihypertensive medicati on and anticoagulation therapy. Physical therapy to be continued under guidance of Dr. Anguiano and I will see her tomorrow for followup. Patient still has a Perkins catheter and she is undergoing daiana er training program per Dr. Chappell. RENÉE/MODL Voice ID: [id number] Report ID: [id number]
[2019-11-19] MEDS: DOCUSATE NA/SENNA CONC 1 TAB PO SCH (21:00)
[2019-11-19] MEDS: ATORVASTATIN 20 MG TAB PO SCH (21:13)
[2019-11-20] MEDS: SERTRALINE HCL 50 MG TAB PO SCH (07:24)
[2019-11-20] MEDS: APIXABAN 2.5 MG TABLET PO SCH ×2 (07:24→19:27)
[2019-11-20] MEDS: MAGNESIUM OXIDE 400 MG TAB PO SCH (07:24)
[2019-11-20] MEDS: TAMSULOSIN 0.4 MG SR CAP PO SCH (07:24)
[2019-11-20] MEDS: GABAPENTIN 100 MG CAP PO SCH ×2 (07:25→19:27)
[2019-11-20] MEDS: LIDOCAINE 4% PATCH TOP SCH (07:26)
[2019-11-20] MEDS: BENAZEPRIL 20 MG TAB PO SCH (07:27)
[2019-11-20] MEDS: carvediloL 6.25 MG TAB PO SCH ×2 (07:27→19:29)
[2019-11-20] MEDS: PROMOD 30 ML DOSE PO SCH ×2 (07:28→19:28)
[2019-11-20] MEDS: AMLODIPINE 5 MG TAB PO SCH (07:28)
[2019-11-20] MEDS ORDERED: FE SULF/FA/VIT B COMP & C TAB PO SCH (08:00)
--- NOTE | 2019-11-20 09:36 | CON ---
History Of Present Illness: This is an 89-year-old female who fell and broke her hip. She is status post unilateral bipolar arthroscopy for her left hip. She went into urinary retention after I was harshil hurtado. Was told to do bladder training for 7 days, 7 days up today. Her catheter was removed at 3:3 0 this morning. We are waiting for her to void at 9:30 a.m. Past Medical History: Impaired glucose fasting, hypertension, hyperlipidemia, diverticulosis, hyperc oagulable state, depression. Past Surgical History: Cataract surgery, breast surgery, hernia repair, uterine prolapse, left bipol ar hip arthroscopy. Allergies: NO KNOWN DRUG ALLERGIES. Social History: She lives at home with her . Review of Systems: Pretty much as mentioned above. Physical Examination: Vital Signs: Afebrile, stable. Assessment: Bladder retention status post hip surgery. Plan: Plan is for 7 days bladder training, then voiding trial after. If she is able to void, it is great. If not, she may need CIC versus another Perkins catheter. She was placed on Flomax last week. If further catheterizations involve, one could consider prophylactic antibiotics too. This was a tele-medicine consultation. Thank you very much. BALWINDER/BIANKA Voice ID: [id number] Report ID: [id number]
[2019-11-20] MEDS: ONDANSETRON 4 MG (ODT) TAB PO PRN ×2 (11:58→19:27)
--- NOTE | 2019-11-20 17:25 | R.PN ---
ENCOUNTER DATE AND TIME: 11/20/2019 17:19 (CDT) NAME RITA KIRKLAND DATE OF : 1930 DATE OF ADMISSION: 11/08/2019 17:49 (CDT) BIPOLAR ARTHOPLASTYCHIEF COMPLAINT: Left hip fracture s/p biopolar arthroplasty SUBJECTIVE: Pt denied any depression. Pt denied any Shortness of Breath. Ambulated 191' with moderate assistance using a rolling walker. Recalled information with 50% accurac y and moderate assistance. CBC with differential shows a decrease in WBC to 8.2 from 11.2, 4 days ago . Chest x-ray is clear. Left hip x-ray showed soft tissue swelling lateral to the left femur. Mildly low Hgb of 9.4, prealbumin low at 11.5, glucose 112. UA is normal. Mobilized using a wheelchair 250' with contact guard assistance. Poor cognitive functioning. Recalle d 0/3 hip precautions with speech therapist. VITAL SIGNS Temperature: 98.4 F SBP/DBP: 116/54 Pulse: 71 Resp: 16 MEDICATION ALLERGIES: No Known Drug Allergies (NKDA) ENVIRONMENTAL ALLERGIES: - Substance Allergies None Known - Other Allergies None Known NURSING: - Shower allowing shower - Skin care per protocol PRECAUTIONS: - Anterior Hip Precaution No abduction No active extension No adduction across midline No external rotation No hip flexion >90 degrees No internal rotation - Posterior Hip Precaution No adduction across midline No external rotation No hip flexion >90 degrees No internal rotation No wheel chair propulsion - Weight Bearing Precaution WBAT left LE ACTIVITIES OOB only with supervision THERAPIES: - Dietary and Nutrition Adequate Nutrition. Nutritional Education. Nutritional Supplements. PHYSICAL EXAM - Gen Alert and awake Lying in bed No apparent distress Oriented to: person, time, and place - Skin No skin breakdown. Normacephalic - Eyes No abnormalities - ENMT No abnormalities - Neck No abnormalities - CVS RRR - Chest No abnormalities - Abd Soft - GI Non distended Deferred - No abnormalities - Ext Mild left lower extremity edema. Left hip surgical site has good hemostasis. - MSK 4+/5 weakness in left lower extremity - Neuro 4/5 strength left lower extremity. - Psych No abnormalities ASSESSMENT: Pt. is a 89 yo Right-handed white female.On 11/08/2019 she was admitted to [facility] an d underwent emergency surgery for BIPOLAR ARTHOPLASTY (Unilateral Hip Fracture) by POLI.Pre-morbidly, Pt. was independent/mod-I in Safety Awareness, Balance, Social Cognition, Endurance, Communication, and Self-Care; and she had good Locomotion, Safety Awareness, Balance, Social Cognition, Transfers Co ntrol, Endurance, and Self-Care.Currently, she has deficits of Endurance, Communication, Self-Care, S phincter Control, Transfers Control, and Social Cognition.Pt. is now referred to [facility] for acute in-patient rehabilitation in order to maximize patient's functional independe nce in activities of daily living, strength, ROM, and mobility.- Rehab Goal Patient has realistic goal of being discharged at assistance level 2-maxA to reside at Home with Fam sri/Relatives. MDM/PLAN: - Physical Therapy Decreased range of motion - to improve, our physical therapists will perform initial evaluation of p t's status upon admission and devise an individualized program for increasing patient's Range of Harris on. Gait dysfunction - to improve, our physical therapists will perform initial evaluation of pt's statu s upon admission and devise an individualized program for Gait Training, and Wheel Chair mobility Inability to transfer - to improve, our physical therapists will perform initial evaluation of pt's status upon admission and devise an individualized program for Bed mobility Need for home safety evaluation - to improve, our physical therapists will perform initial evaluatio n of pt's status upon admission and devise an individualized program for Home Evaluation Need in caregiver upon discharge - to improve, our physical therapists will perform initial evaluati on of pt's status upon admission and devise an individualized program for Caregiver Training Edema - to improve, our physical therapists will perform initial evaluation of pt's status upon admi ssion and devise an individualized program for Elevation Training, and Lymphedema Therapy New precaution - to improve, our physical therapists will perform initial evaluation of pt's status upon admission and devise an individualized program for Patient precaution education Poor endurance - to improve, our physical therapists will perform initial evaluation of pt's status upon admission and devise an individualized program for Endurance Training Weakness - to improve, our physical therapists will perform initial evaluation of pt's status upon a dmission and devise an individualized program for Aquatic Therapy, Neuromuscular Reeducation, and Str engthening Achieving independence - to improve, our physical therapists will perform initial evaluation of pt's status upon admission and devise an individualized program for Community Reintegration Activities - Occupational Therapy ADL deficits - to improve, our occupation therapists will perform initial evaluation of pt's status upon admission and devise an individualized program for Bathing, Bed mobility, Community Reintegratio n, Cooking, Dressing, Eating, Fine Motor Skills, Grooming, Homemaking, Kitchen Mobility, Laundry, Pat ient Education, Safety Awareness, Splinting - Positioning, Transfers(Toilet, Tub, Shower), and Wheel Chair Management Cognitive deficits - to improve, our occupation therapists will perform initial evaluation of pt's s tatus upon admission and devise an individualized program for Cognition - orientation Need for rn wound care - to improve, our occupation therapists will perform initial evaluation of pt's status upon admission and devise an individualized program for Caregiver Training Weakness - to improve, our occupation therapists will perform initial evaluation of pt's status upon admission and devise an individualized program for Aquatic Therapy, Balance, Endurance, UE ROM, and UE strengthening - Other See attached MAR (Medication Administration Record) - Anterior Hip Precaution No abduction No active extension No adduction across midline No external rotation No hip flexion >90 degrees No internal rotation - Diet - Liquid Texture Continue Regular - Tube Feed Continue N/A - Diet Type Continue Regular - Posterior Hip Precaution No adduction across midline No external rotation No hip flexion >90 degrees No internal rotation No wheel chair propulsion - Weight Bearing Precaution WBAT left LE - Skin care per protocol - Diet - Solid Texture Continue Regular - Shower allowing shower FUNCTIONAL STATUS: UPDATED AT WEEKLY TEAM CONFERENCE - Bladder Same accident frequency: 7-Ind - No accidents in the past 7 days - Bowel Same accident frequency: 7-Ind - No accidents in the past 7 days - Walking Same score based on distance walked: 0(N/A) Same score based on distance walked: 1(<=50ft) - Wheelchair Same score based on distance traveled: 0(N/A) FUNCTIONAL STATUS: - Self-Care A. Eating Ind B. Grooming Kody C. Bathing sup D. Dressing - Upper sup E. Dressing - Lower modA F. Toileting Lio - Sphincter Control G. Bladder control sup H. Bowel control Kody - Transfers Control I. Bed/Chair/Wheelchair sup J. Toilet sup K. Tub/Shower sup - Locomotion L. Walk/Wheelchair (B) modA M. Stairs ADNO - Communication N. Comprehension (B) sup O. Expression (B) modA - Social Cognition P. Social Interaction Lio Q. Problem Solving Lio R. Memory modA - Endurance Fair - Balance Fair - Safety Awareness Fair QI SCORES: - Self-Care A. Eating 06-Independent B. Oral hygiene 03-Partial/moderate assistance C. Toileting hygiene 02-Substantial/maximal assistance E. Shower/bathe self 02-Substantial/maximal assistance F. Upper body dressing 03-Partial/moderate assistance G. Lower body dressing 88-Not attempted due to medical condition or safety concerns H. Putting on/taking off footwear 88-Not attempted due to medical condition or safety concerns - Mobility B. Sit to lying 02-Substantial/maximal assistance C. Lying to sitting on side of bed 02-Substantial/maximal assistance D. Sit to stand 02-Substantial/maximal assistance E. Chair/zjz-hc-yqzvs transfer 02-Substantial/maximal assistance F. Toilet transfer 02-Substantial/maximal assistance G. Car transfer 88-Not attempted due to medical condition or safety concerns I. Walk 10 feet 02-Substantial/maximal assistance J. Walk 50 feet with two turns 88-Not attempted due to medical condition or safety concerns K. Walk 150 feet 88-Not attempted due to medical condition or safety concerns L. Walking 10 feet on uneven surfaces 88-Not attempted due to medical condition or safety concerns M. 1 step (curb) 88-Not attempted due to medical condition or safety concerns N. 4 steps 88-Not attempted due to medical condition or safety concerns O. 12 steps 88-Not attempted due to medical condition or safety concerns P. Picking up object 06-Independent R. Wheel 50 feet with two turns 88-Not attempted due to medical condition or safety concerns S. Wheel 150 feet 88-Not attempted due to medical condition or safety concerns - Bladder and Bowel Bladder continence 0-Always continent Bowel continence 0-Always continent - Endurance Fair - Balance Fair - Safety Awareness Fair CURRENT FUNC. DEFICITS: Mobility, Endurance, Balance, Safety Awareness, and Self-Care SIGNATURE PANEL: (CDT)
[2019-11-20] MEDS: ACETAMINOPHEN 500 MG TAB PO PRN (19:27)
[2019-11-20 19:41] VITALS: BP 142/64
--- NOTE | 2019-11-20 19:42 | RAD REPORT ---
EXAM DESCRIPTION: CT - Thorax Wo Con - 11/20/2019 7:10 pm CLINICAL HISTORY: coughing COMPARISON: Chest Single View dated 11/15/2019; Abdomen Pelvis W Contrast dated 10/19/2016 TECHNIQUE: Axial 5 mm thick images of the chest were obtained without IV contrast. All CT scans are performed using dose optimization technique as appropriate and may include automated exposure control or mA/KV adjustment according to patient size. FINDINGS: No focal consolidation. In the posterior midportion left lower lobe there is trace amount of interstitial stranding. This is not sufficient for pneumonia diagnosis. This can be monitored on s ubsequent imaging. No endobronchial lesions seen. Motion degradation is present. No pleural thickening or pleural effusion. No pneumothorax. No abnormal mediastinal or hilar masses or lymphadenopathy seen. No gross aortic or pulmonary artery finding suspected. Assessment is limited in the absence of IV contrast. No cardiomegaly or pericardi al effusion. Aortic and Coronary artery calcifications are present. No chest wall mass or abnormal axillary lymphadenopathy. Patient has a large hiatal hernia with estimated 20% of the stomach intrathoracic. Thoracic esophagus is prominent. There is retained fluid within the lumen probably refluxed gastric content. No gross e vidence for an esophageal mass. Limited upper abdomen imaging nodes cholelithiasis which has been previously diagnosed. IMPRESSION: No focal pneumonia identified. There is a trace amount of stranding in the posterior midportion of the left lower lobe. This is not sufficient for pneumonia diagnosis and may be scarring. This can be monitored on subsequent imaging i f symptoms progress. Moderately large hiatal hernia with mildly dilated or patulous thoracic esophagus. The fluid within t he esophagus lumen is probably refluxed gastric content.
[2019-11-20 19:45] VITALS: O2SAT 97
--- NOTE | 2019-11-20 19:55 | PN ---
Date of Progress Note: 11/20/2019 Subjective: Patient was seen this morning for followup. No new complaints or problems reported by bahman taylor, lying in bed, not in any distress. Objective: Vital Signs: Reviewed. HEENT: Unremarkable. Lungs: Clear to auscultation. Heart: Sounds normal. Abdomen: Soft, bowel sounds normal. No guarding, rigidity, tenderness, or distention. Extremities: No leg edema. Impression: 1.Left hip fracture. 2.Anemia due to acute blood loss. 3.Hypertension. Plan: We will go ahead and continue current medications. Continue Tylenol for pain which seems to b e helping her as she reports. Perkins catheter was removed. We will see how she is able to void and c ontinue to follow up with Dr. Chappell. Give iron supplement per order and I will see her tomorrow for followup. RENÉE/MODL Voice ID: [id number] Report ID: [id number]
[2019-11-20] MEDS: ATORVASTATIN 20 MG TAB PO SCH (20:13)
[2019-11-20] MEDS: DOCUSATE NA/SENNA CONC 1 TAB PO SCH (20:13)
[2019-11-20 20:39] VITALS: TEMP 98
--- NOTE | 2019-11-21 19:26 | DS ---
Date of Discharge: 11/20/2019 Disposition: Transferred to medical floor. Physical Examination: See copy of today's progress note for details on physical exam. Final Diagnosis: 1.Femoral neck fracture, left. 2.Anemia due to acute blood loss. 3.Hypertension. 4.Mixed hyperlipidemia. 5.Hypercoagulable state. 6.Chronic anticoagulation therapy. 7.Impaired fasting glucose. 8.Depression. 9.Diverticulosis. Hospital Course: This is an 89-year-old pleasant female patient who was admitted to the hospital to medical floor and subsequently was transferred to rehab floor. Patient had surgery for left hip frac ture. Postoperatively, she remained stable and transferred to rehab floor where she continued to rec eive physical therapy under guidance of Dr. Anguiano. Patient was doing well. Her anticoagulation t herapy was continued. She did have problem with urinary retention while she was on the rehab floor, requiring placement of Perkins catheter, and we started her on tamsulosin and about 48 hours after star ting that, we tried to leave a Perkins catheter, but we had to replace it back because of urinary reten tion problem and she had approximately 800 to 1000 cc of urine. Each time, she required Perkins cathet er placement. After we attached the Perkins catheter second time, Urology consultation was obtained fr om Dr. Chappell and he started bladder training program and after about 1 week of bladder training progr am, her Perkins catheter was removed. We also discontinued all narcotic pain medication thinking about possibility of side effect with urinary retention. In the last few days, the only pain medication s he has been receiving is Tylenol. Her chronic anticoagulation therapy was continued using Eliquis. Blood pressure was remaining on the lower side of normal, so we did write order to hold antihypertens jose medication, which is amlodipine, benazepril, and carvedilol, if systolic blood pressure remains l ess than 130. Overall, her medical problems remained stable. Today, on the day of discharge, in the evening hours, nurse called and informed me that the patient started to have some cough today and CA T scan of the chest was done by Dr. Anguiano after he learned that the patient had a visitor and this was actually her grandson who works in emergency room and then subsequently she started to have this problem. As per my knowledge, grandson is not ill, but considering her symptoms and CAT scan kwaku acosta, nurse contacted and informed me. She is maintaining an adequate amount of oxygenation, but with t hese concerns, nursing surgical services director was contacted and decision was made to send patient to Medical rodríguez in isolation room to rule out COVID-19. Discharge Medication And Instructions: See copy of transfer order for details. RENÉE/MODL Voice ID: [id number] Report ID: [id number]
--- NOTE | 2019-11-29 16:23 | R.PN ---
ENCOUNTER DATE AND TIME: 11/15/2019 17:34 (CDT) NAME RITA KIRKLAND DATE OF : 1930 DATE OF ADMISSION: 11/08/2019 17:49 (CDT) BIPOLAR ARTHOPLASTYCHIEF COMPLAINT: Left hip fracture s/p biopolar arthroplasty SUBJECTIVE: Pt denied any depression. Pt denied any Shortness of Breath. Ambulated 191' with moderate assistance using a rolling walker. Recalled information with 50% accurac y and moderate assistance. CBC with differential shows an increased WBC to 11.2 from 8.9 one week ago . Chest x-ray is clear. Left hip x-ray showed soft tissue swelling lateral to the left femur. Mildly low Hgb of 9.4, prealbumin low at 11.5, glucose 112. UA is normal. Mobilized using a wheelchair with moderate assistance. VITAL SIGNS Temperature: 97.9 F SBP/DBP: 135/52 Pulse: 70 Resp: 16 MEDICATION ALLERGIES: No Known Drug Allergies (NKDA) ENVIRONMENTAL ALLERGIES: - Substance Allergies None Known - Other Allergies None Known NURSING: - Shower allowing shower - Skin care per protocol PRECAUTIONS: - Anterior Hip Precaution No abduction No active extension No adduction across midline No external rotation No hip flexion >90 degrees No internal rotation - Posterior Hip Precaution No adduction across midline No external rotation No hip flexion >90 degrees No internal rotation No wheel chair propulsion - Weight Bearing Precaution WBAT left LE ACTIVITIES OOB only with supervision THERAPIES: - Dietary and Nutrition Adequate Nutrition. Nutritional Education. Nutritional Supplements. PHYSICAL EXAM - Gen Alert and awake Lying in bed No apparent distress Oriented to: person, time, and place - Skin No skin breakdown. Normacephalic - Eyes No abnormalities - ENMT No abnormalities - Neck No abnormalities - CVS RRR - Chest No abnormalities - Abd Soft - GI Non distended Deferred - No abnormalities - Ext Mild left lower extremity edema. Left hip surgical site has good hemostasis. - MSK 4+/5 weakness in left lower extremity - Neuro 4/5 strength left lower extremity. - Psych No abnormalities ASSESSMENT: Pt. is a 89 yo Right-handed white female.On 11/08/[address] she was admitted to [facility] an d underwent emergency surgery for BIPOLAR ARTHOPLASTY (Unilateral Hip Fracture) by POLI.Pre-morbidly, Pt. was independent/mod-I in Safety Awareness, Balance, Social Cognition, Endurance, Communication, and Self-Care; and she had good Locomotion, Safety Awareness, Balance, Social Cognition, Transfers Co ntrol, Endurance, and Self-Care.Currently, she has deficits of Endurance, Communication, Self-Care, S phincter Control, Transfers Control, and Social Cognition.Pt. is now referred to [facility] for acute in-patient rehabilitation in order to maximize patient's functional independe nce in activities of daily living, strength, ROM, and mobility.- Rehab Goal Patient has realistic goal of being discharged at assistance level 2-maxA to reside at Home with Fam sri/Relatives. MDM/PLAN: - Physical Therapy Decreased range of motion - to improve, our physical therapists will perform initial evaluation of p t's status upon admission and devise an individualized program for increasing patient's Range of Harris on. Gait dysfunction - to improve, our physical therapists will perform initial evaluation of pt's statu s upon admission and devise an individualized program for Gait Training, and Wheel Chair mobility Inability to transfer - to improve, our physical therapists will perform initial evaluation of pt's status upon admission and devise an individualized program for Bed mobility Need for home safety evaluation - to improve, our physical therapists will perform initial evaluatio n of pt's status upon admission and devise an individualized program for Home Evaluation Need in caregiver upon discharge - to improve, our physical therapists will perform initial evaluati on of pt's status upon admission and devise an individualized program for Caregiver Training Edema - to improve, our physical therapists will perform initial evaluation of pt's status upon admi ssion and devise an individualized program for Elevation Training, and Lymphedema Therapy New precaution - to improve, our physical therapists will perform initial evaluation of pt's status upon admission and devise an individualized program for Patient precaution education Poor endurance - to improve, our physical therapists will perform initial evaluation of pt's status upon admission and devise an individualized program for Endurance Training Weakness - to improve, our physical therapists will perform initial evaluation of pt's status upon a dmission and devise an individualized program for Aquatic Therapy, Neuromuscular Reeducation, and Str engthening Achieving independence - to improve, our physical therapists will perform initial evaluation of pt's status upon admission and devise an individualized program for Community Reintegration Activities - Occupational Therapy ADL deficits - to improve, our occupation therapists will perform initial evaluation of pt's status upon admission and devise an individualized program for Bathing, Bed mobility, Community Reintegratio n, Cooking, Dressing, Eating, Fine Motor Skills, Grooming, Homemaking, Kitchen Mobility, Laundry, Pat ient Education, Safety Awareness, Splinting - Positioning, Transfers(Toilet, Tub, Shower), and Wheel Chair Management Cognitive deficits - to improve, our occupation therapists will perform initial evaluation of pt's s tatus upon admission and devise an individualized program for Cognition - orientation Need for pet caretaker - to improve, our occupation therapists will perform initial evaluation of pt's status upon admission and devise an individualized program for Caregiver Training Weakness - to improve, our occupation therapists will perform initial evaluation of pt's status upon admission and devise an individualized program for Aquatic Therapy, Balance, Endurance, UE ROM, and UE strengthening - Other See attached MAR (Medication Administration Record) - Anterior Hip Precaution No abduction No active extension No adduction across midline No external rotation No hip flexion >90 degrees No internal rotation - Diet - Liquid Texture Continue Regular - Tube Feed Continue N/A - Diet Type Continue Regular - Posterior Hip Precaution No adduction across midline No external rotation No hip flexion >90 degrees No internal rotation No wheel chair propulsion - Weight Bearing Precaution WBAT left LE - Skin care per protocol - Diet - Solid Texture Continue Regular - Shower allowing shower FUNCTIONAL STATUS: UPDATED AT WEEKLY TEAM CONFERENCE - Bladder Same accident frequency: 7-Ind - No accidents in the past 7 days - Bowel Same accident frequency: 7-Ind - No accidents in the past 7 days - Walking Same score based on distance walked: 0(N/A) Same score based on distance walked: 1(<=50ft) - Wheelchair Same score based on distance traveled: 0(N/A) FUNCTIONAL STATUS: - Self-Care A. Eating Ind B. Grooming Kody C. Bathing sup D. Dressing - Upper sup E. Dressing - Lower modA F. Toileting Lio - Sphincter Control G. Bladder control sup H. Bowel control Kody - Transfers Control I. Bed/Chair/Wheelchair sup J. Toilet sup K. Tub/Shower sup - Locomotion L. Walk/Wheelchair (B) modA M. Stairs ADNO - Communication N. Comprehension (B) sup O. Expression (B) modA - Social Cognition P. Social Interaction Lio Q. Problem Solving Lio R. Memory modA - Endurance Fair - Balance Fair - Safety Awareness Fair QI SCORES: - Self-Care A. Eating 06-Independent B. Oral hygiene 03-Partial/moderate assistance C. Toileting hygiene 02-Substantial/maximal assistance E. Shower/bathe self 02-Substantial/maximal assistance F. Upper body dressing 03-Partial/moderate assistance G. Lower body dressing 88-Not attempted due to medical condition or safety concerns H. Putting on/taking off footwear 88-Not attempted due to medical condition or safety concerns - Mobility B. Sit to lying 02-Substantial/maximal assistance C. Lying to sitting on side of bed 02-Substantial/maximal assistance D. Sit to stand 02-Substantial/maximal assistance E. Chair/[id number] transfer 02-Substantial/maximal assistance F. Toilet transfer 02-Substantial/maximal assistance G. Car transfer 88-Not attempted due to medical condition or safety concerns I. Walk 10 feet 02-Substantial/maximal assistance J. Walk 50 feet with two turns 88-Not attempted due to medical condition or safety concerns K. Walk 150 feet 88-Not attempted due to medical condition or safety concerns L. Walking 10 feet on uneven surfaces 88-Not attempted due to medical condition or safety concerns M. 1 step (curb) 88-Not attempted due to medical condition or safety concerns N. 4 steps 88-Not attempted due to medical condition or safety concerns O. 12 steps 88-Not attempted due to medical condition or safety concerns P. Picking up object 06-Independent R. Wheel 50 feet with two turns 88-Not attempted due to medical condition or safety concerns S. Wheel 150 feet 88-Not attempted due to medical condition or safety concerns - Bladder and Bowel Bladder continence 0-Always continent Bowel continence 0-Always continent - Endurance Fair - Balance Fair - Safety Awareness Fair CURRENT FUNC. DEFICITS: Mobility, Endurance, Balance, Safety Awareness, and Self-Care SIGNATURE PANEL: (CDT)
== END 2019-11-20 20:30 | disposition short-term general hospital (02) | DRG 560 ==
LOC: 5TH 13:20
PROVIDERS: ADMIT Psychiatry & Neurology Neurology with Special Qualifications in Child Neurology; ATTEND Internal Medicine
DX: S72.002D Fracture of unspecified part of neck of left femur, subsequent encounter for closed fracture with routine healing (principal); D62 Acute posthemorrhagic anemia; D68.59 Other primary thrombophilia; I10 Essential (primary) hypertension; E78.2 Mixed hyperlipidemia; Z79.01 Long term (current) use of anticoagulants; R73.01 Impaired fasting glucose; F32.9 Major depressive disorder, single episode, unspecified; K57.90 Diverticulosis of intestine, part unspecified, without perforation or abscess without bleeding; Z96.642 Presence of left artificial hip joint; R33.9 Retention of urine, unspecified
CPT/HCPCS: 36415; 71045; 71250; 80048; 80053; 81001; 82040; 82310; 83735; 84134; 85025; 87086; 87088; 92507; 92523; 97110; 97116; 97161; 97165; 97530; 97542; J2270

== ENCOUNTER 2019-11-20 22:00 | Observation (INO) | payer OTHER ==
[2019-11-20] MEDS ORDERED: BISACODYL 10 MG RECTAL SUPP PR PRN (23:19)
[2019-11-20] MEDS ORDERED: MAGNESIUM HYDROXIDE 8% 30 ML PO PRN (23:19)
[2019-11-20] MEDS ORDERED: ACETAMINOPHEN 500 MG TAB PO PRN (23:19)
[2019-11-20] MEDS ORDERED: CALCIUM CARBONATE CHEW 500MG TAB PO PRN (23:19)
[2019-11-20] MEDS ORDERED: ONDANSETRON 4 MG (ODT) TAB PO PRN (23:19)
[2019-11-21 02:49] VITALS: BMI 24.0
[2019-11-21] MEDS: FE SULF/FA/VIT B COMP & C TAB PO SCH (07:57)
[2019-11-21] MEDS: BENAZEPRIL 20 MG TAB PO SCH (07:58)
[2019-11-21] MEDS: MAGNESIUM OXIDE 400 MG TAB PO SCH (07:59)
[2019-11-21] MEDS: TAMSULOSIN 0.4 MG SR CAP PO SCH (07:59)
[2019-11-21] MEDS: AMLODIPINE 5 MG TAB PO SCH (07:59)
[2019-11-21] MEDS: SERTRALINE HCL 50 MG TAB PO SCH (07:59)
[2019-11-21] MEDS: GABAPENTIN 100 MG CAP PO SCH ×2 (07:59→21:38)
[2019-11-21] MEDS: carvediloL 6.25 MG TAB PO SCH ×2 (08:00→21:39)
[2019-11-21] MEDS: LIDOCAINE 4% PATCH TOP SCH (08:01)
[2019-11-21] MEDS: PROMOD 30 ML DOSE PO SCH ×2 (08:02→21:38)
[2019-11-21] MEDS: APIXABAN 2.5 MG TABLET PO SCH ×2 (08:05→21:38)
[2019-11-21 08:11] LABS: Absolute Lymphocytes (CBC) 1.1 K/uL (0.7-4.9); Basophils % 0.7 % (0-1.3); Hematocrit 31.1 % (36.0-45.0); Lymphocytes % 14.9 % (15.3-44.8); MPV 8.6 fL (7.6-11.3); RBC Red Blood Cell Count 3.45 M/uL (3.86-4.86)
[2019-11-21 08:25] LABS: Albumin 2.7 g/dL (3.4-5.0); Bilirubin Total 0.4 mg/dL (0.2-1.0); Magnesium 2.4 mg/dL (1.8-2.4); Potassium 4.6 mmol/L (3.5-5.1); Protein, Total 6.4 g/dL (6.4-8.2)
--- NOTE | 2019-11-21 19:05 | HP ---
Date of Admission: 11/21/2019 Chief Complaint: Cough. History Of Present Illness: This is an 89-year-old very pleasant female patient who was on rehab floor. After her hip fracture and surgery, she was admitted to rehab floor. She was recovering well, participating well with physical therapy, and yesterday evening rehab nurse contacted me and informed me that during the course of day yesterday, patient started to have some dry cough. There was no expectoration. No sore throat. No shortness of breath. No fever. With this problem, Dr. Anguiano did a workup on her including CAT scan of the chest, results came back, reviewed. Nurse also informed me that the patient's grandson who works in the emergency room had visited her over the weekend and we do not know if the patient contracted some infectious disease from him or not, especially with the recent concern about COVID-19 pandemic going on. Decision was made to transfer her to medical floor in isolation and further workup will be done to rule out that possibility. Patient was transferred from rehab to medical floor and was kept in isolation. When I saw her this morning, she denied any complaints except her dry cough. Allergies: NO KNOWN ALLERGIES. Medications: List reviewed. Review of Systems: Respiratory: Dry cough. Musculoskeletal: Left hip pain. All other systems reviewed and negative. Past Medical History: Impaired fasting glucose, hypertension, mixed hyperlipidemia, diverticulosis, hypercoagulable state, on chronic anticoagulation therapy, depression, prior history of stroke. Past Surgical History: Cataract surgery, breast biopsy, hernia repair, uterine prolapse repair. Family History: Father and had heart disease. Mother , had hypertension and diabetes. Social History: Negative for smoking or alcohol use. Physical Examination: Vital Signs: Temperature 97.1, pulse 73, respiratory rate 18, blood pressure 131/60, oxygen saturation 95%. Height 5 feet 4 inches, weight 140 pounds. General: Awake, alert, oriented, not in distress. HEENT: Head atraumatic, normocephalic. Conjunctivae nonerythematous. Sclerae white. Mouth, no thrush or edema noted. Ears/Nose, no mass, lesion, discharge noted. Neck: Supple. No JVD, lymph nodes, bruit, thyromegaly noted. Lungs: Bilateral good equal air entry. Clear to auscultation. No rhonchi. No rales. Heart: Normal heart sounds, no murmur or gallop. Abdomen: Soft, bowel sounds normal. No guarding, rigidity, tenderness, mass, hepatosplenomegaly, distention, or bruit noted. Extremities: Left lateral lower thigh has bruising from recent surgery and fracture. Steri-Strips present over left lateral hip. No evidence of any redness, swelling, discharge, or bleeding from this area and surgical site is healing very well. Skin: No rash, ulcer, cellulitis. Lymphatics: No lymph node enlargement in neck, supraclavicular, infraclavicular region. Neuro: No focal neurological deficit. Chest: Unremarkable. External Genitalia: Deferred. Rectal: Deferred. Laboratory Data: WBC 7.6, hemoglobin 10, platelets 321. Sodium 141, potassium 4.6, chloride 105, bicarb 31, BUN 21, creatinine 0.64, glucose 129. Liver function tests normal. CAT scan of the chest shows no focal pneumonia identified. There is a trace amount of stranding in the posterior midportion of the left lower lobe. This is not sufficient for pneumonia diagnosis and may be scarring. This can be monitored on subsequent imaging if symptoms progress. Moderately large hiatal hernia with mildly dilated or patulous thoracic esophagus. The fluid within the esophagus lumen is probably refluxed gastric content.. Impression: 1. Cough. 2. Rule out COVID-19. 3. Anemia due to acute blood loss. 4. Left femoral neck fracture, status post surgery. 5. Hypercoagulable state. 6. Chronic anticoagulation therapy. 7. Hypertension. 8. Mixed hyperlipidemia. 9. Impaired fasting glucose. 10. Depression. 11. Diverticulosis. Plan: We will go ahead and admit the patient to medical floor. Keep her on isolation per standard protocol. COVID-19 test was done. We will follow up on results and continue current medical management. Details and plan of treatment discussed with the patient. Patient is maintaining adequate amount of oxygenation and has no respiratory complaints like shortness of breath or chest tightness. No evidence of hypoxia. RENÉE/MODL Voice ID: [id number] [facility] MEDICAL CENTERAnayeli
[2019-11-21] MEDS ORDERED: DOCUSATE NA/SENNA CONC 1 TAB PO SCH (21:00)
[2019-11-21] MEDS ORDERED: ATORVASTATIN 20 MG TAB PO SCH (21:00)
[2019-11-22] MEDS: BENAZEPRIL 20 MG TAB PO SCH (08:35)
[2019-11-22] MEDS: FE SULF/FA/VIT B COMP & C TAB PO SCH (08:35)
[2019-11-22] MEDS: APIXABAN 2.5 MG TABLET PO SCH (08:35)
[2019-11-22] MEDS: GABAPENTIN 100 MG CAP PO SCH (08:35)
[2019-11-22] MEDS: TAMSULOSIN 0.4 MG SR CAP PO SCH (08:36)
[2019-11-22] MEDS: PROMOD 30 ML DOSE PO SCH (08:36)
[2019-11-22] MEDS: AMLODIPINE 5 MG TAB PO SCH (08:36)
[2019-11-22] MEDS: carvediloL 6.25 MG TAB PO SCH (08:36)
[2019-11-22] MEDS: MAGNESIUM OXIDE 400 MG TAB PO SCH (08:36)
[2019-11-22] MEDS: SERTRALINE HCL 50 MG TAB PO SCH (08:36)
[2019-11-22] MEDS: LIDOCAINE 4% PATCH TOP SCH (08:37)
[2019-11-22 10:37] VITALS: O2SAT 96
[2019-11-22] MEDS ORDERED: INFLUENZA VACCINE (for 3y+) 0.5 ML DOSE IMVAC ONE (16:00)
[2019-11-22] MEDS ORDERED: PNEUMOCOCCAL VACCINE 0.5 ML IMVAC ONE (16:00)
[2019-11-22 16:29] VITALS: BP 134/58; TEMP 98
--- NOTE | 2019-12-02 14:31 | DS ---
Date of Discharge: 11/22/2019 History: Patient was seen this morning for followup. No new complaints or problems reported by the patient. Physical Examination: Vital Signs: Reviewed. HEENT: Unremarkable. Lungs: Clear to auscultation. Heart: Sounds normal. Abdomen: Soft. Bowel sounds normal. No guarding, rigidity, tenderness, or distention. Extremities: No leg edema. Disposition: Discharged to go to residential. Hospital Course: An 89-year-old female patient, who was transferred from rehab floor to [facility]. Please see dictated H and P for more information. Patient was having some dry cough and 1 of her family member had visited her who works in the emergency room and to our knowledge that was the gilles ent's grandson who was not sick, but her cough problem was reported after that, so patient was moved from rehab floor to medical floor, kept in isolation to rule out COVID-19. She was afebrile. No jennifer rtness of breath. Her COVID-19 test came back negative and patient was discharged from hospital to [facility] to nursing home facility. Final Diagnoses: 1.Cough. 2.Anemia due to acute blood loss. 3.Left femoral neck fracture, status post surgery. 4.Hypercoagulable state. 5.Chronic anticoagulation. 6.Hypertension. 7.Mixed hyperlipidemia. 8.Impaired fasting glucose. 9.Depression. 10.Diverticulosis. Laboratory Data: White count 7.6, hemoglobin 10, platelets 321. Sodium 141, potassium 4.6, chloride 105, bicarb 31, BUN 22, creatinine 0.64, glucose 129. Liver function tests unremarkable. Discharge Medications: Please see copy of discharge order for details. RENÉE/MODL Voice ID: [id number] Report ID: [id number]
== END 2019-11-22 16:35 ==
LOC: 4TH 22:00 → INTOOBSV 22:00
PROVIDERS: ADMIT Internal Medicine; ATTEND Internal Medicine
DX: R05 Cough (principal); S72.002D Fracture of unspecified part of neck of left femur, subsequent encounter for closed fracture with routine healing; D62 Acute posthemorrhagic anemia; D68.59 Other primary thrombophilia; I10 Essential (primary) hypertension; E78.2 Mixed hyperlipidemia; K57.90 Diverticulosis of intestine, part unspecified, without perforation or abscess without bleeding; K44.9 Diaphragmatic hernia without obstruction or gangrene; R73.01 Impaired fasting glucose; F32.9 Major depressive disorder, single episode, unspecified; Z03.818 Encounter for observation for suspected exposure to other biological agents ruled out; Z23 Encounter for immunization; Z79.01 Long term (current) use of anticoagulants; Z86.73 Personal history of transient ischemic attack (TIA), and cerebral infarction without residual deficits; Z82.49 Family history of ischemic heart disease and other diseases of the circulatory system; Z83.3 Family history of diabetes mellitus
CPT/HCPCS: 85025; 36415; 83735; 80053; 90471 ×2; 90670; U0001; G0379; Q2035; G0378 ×3